=== PATIENT | male | born 1980 | race Hispanic/Latino ===

== ENCOUNTER 2025-03-03 15:08 | Inpatient (IN) | payer OTHER ==
[~2025-03-03] VITALS: Ht 160 cm; Wt 64.2 kg
[2025-03-03 16:40] VITALS: BP 169/94; PULSE 78; RESP 19; TEMP 97.7
[2025-03-03 17:23] VITALS: O2SAT 95
[2025-03-03] MEDS ORDERED: amLODIPine 5 MG TAB PO SCH ×2 (18:00)
[2025-03-03] MEDS ORDERED: NITROGLYCERIN 0.4 MG SL TAB SL PRN (18:00)
[2025-03-03] MEDS ORDERED: DEXTROSE 50%-WATER 50 ML DISP.SYRIN IV PRN (18:00)
[2025-03-03] MEDS ORDERED: GLUCAGON 1MG KIT 1 MG ML IM PRN (18:00)
[2025-03-03 18:02] LABS: IMMATURE GRANULOCYTE ABSOLUTE 0.02 K/uL (0-1); NUCLEATED RED BLOOD CELLS 0.0 % (0.0-0.19); PLATELET COUNT (AUTO) 295 K/uL (130-400); RED BLOOD CELL COUNT(AUTO) 4.67 MIL/uL (4.50-6.20); RED CELL DISTRIBUTION WIDTH 13.5 % (11.0-15.5); WHITE BLOOD COUNT (AUTO) 8.5 K/uL (4.8-10.8)
[2025-03-03 18:14] LABS: CREATININE 0.8 mg/dL (0.5-1.3); GLOMERULAR FILTR. RATE CALC 113.0 mL/min (>90); GLUCOSE,RANDOM 284.0 mg/dL (70-105); SODIUM SERUM 137.0 mmol/L (136-145); UREA NITROGEN, BLOOD 9.0 mg/dL (7-18)
[2025-03-03 18:21] LABS: INR 0.97 (0.85-1.15)
[2025-03-03 18:23] LABS: CREATINE KINASE, TOTAL 35.0 U/L (21-232)
[2025-03-03 18:26] LABS: ASPARTATE AMINOTRANSFERASE 12.0 U/L (10-37); LDL DIRECT 82.0 mg/dL (0-99); TOTAL PROTEIN, SERUM 6.3 g/dL (6.0-8.3)
[2025-03-03 18:58] LABS: HIV 1&2 ANTIBODY Non-Reactive (Negative)
[2025-03-03 19:10] VITALS: BP 157/99; PULSE 79; RESP 16; TEMP 98.3
[2025-03-03] MEDS: amLODIPine 5 MG TAB PO SCH (19:29)
--- NOTE | 2025-03-03 19:38 | HP ---
[facility] HISTORY AND PHYSICAL Date of Service: Mar 03, 2025 Time of Service: 19:24 HISTORY OF PRESENT ILLNESS: Date of service: 03/03/2025, patient was seen in [facility] room 227 44-year-old male with underlying history of type 2 diabetes mellitus, history of polysubstance abuse with cocaine and K2 synthetic marijuana, tobacco use disorder, who presented as a transfer from [facility]. Patient states that he works for a [employer] was in [place], [place] about a week ago. He presented to [facility] in [place] with chest pain and reports that he underwent coronary angiogram/cardiac catheterization. Patient is unsure about the treatment that was offered in [place] and came back to the [place] where he resides. He presented yesterday to the ER in [place] as his job site had requested medical clearance before patient could return to work. Patient denies having significant chest pain yesterday. On presentation to [facility], patient was noted to have troponin which was mildly elevated at 0.055 with BNP of 212, hemoglobin of 12.5, and creatinine of 0.8. Patient received aspirin, Plavix and was initiated on heparin drip and seen by Cardiology. Patient underwent cardiac catheterization today which showed findings of severe multivessel coronary artery disease. Patient was found to have distal left main disease of 80%, proximal LAD of 90% stenosis, proximal circumflex 90% stenosis and patient was found to have 100% CT of mid RCA. Patient was transferred to [facility] for further evaluation for coronary artery bypass grafting. Patient reports having used cocaine about a week ago and he uses K2 synthetic marijuana almost every day. Previously has not been told he has diabetes and currently does not take antidiabetic medications at home. Patient will be admitted under hospitalist and we will follow further recommendations from cardiovascular surgery and Cardiology. REVIEW OF SYSTEMS CONSTITUTIONAL: Denies fevers, chills, or night sweats. reports having had weight loss of about 100 lbs in the last one year NEUROLOGICAL: Denies headache, amaurosis fugax, motor weakness, sensory deficit, vertigo/spinning sensation, gait abnormalities, or tremors. ENT: No hearing loss, otalgia, otorrhea, rhinitis, rhinorrhea, hoarseness, or sore throat. CARDIOVASCULAR: chest pain about a week ago PULMONARY: Denies any shortness of breath, cough, phlegm/sputum, hemoptysis, pleuritic chest pain. SLEEP: Denies morning headaches, daytime somnolence or napping. Denies difficulty falling asleep, staying asleep, waking from sleep. Denies knowledge of snoring. GASTROINTESTINAL: Denies any type of dysphagia to either liquids or solids. Denies nausea, vomiting, pyrosis, early satiety, abdominal pain, diarrhea, constipation, or changes in stool consistency or caliber. Denies coffee-ground emesis, hematemesis, hematochezia, or melanotic stools. GENITOURINARY: Denies frequency, urgency, nocturia, hematuria or incontinence (Storage/Irritative symptoms.) Low urinary stream, straining to void, urinary intermittency or hesitancy, splitting of the voiding stream, terminal dribbling. ENDOCRINOLOGIC: Denies polyuria, polydipsia, polyphagia or heat/cold intolerances. HEMATOLOGIC: Denies thrombophilia/previous clots, or coagulopathy/bleeding disorders. ONCOLOGIC: Denies personal history of malignancy. DERMATOLOGIC: Denies rashes or pruritus. PSYCHIATRIC: Denies any suicidal or homicidal ideation. Denies hallucinations. PAST MEDICAL HISTORY: Hypertension, hyperlipidemia, type 2 diabetes mellitus, history of cocaine use in synthetic marijuana use PAST SURGICAL HISTORY: Reports having had cardiac catheterization in [place] about a week ago PAST SOCIAL HISTORY: Denies alcohol consumption, uses cocaine about once a month, uses synthetic marijuana almost every day for the past year, smokes about a pack a day for about 20 years now FAMILY HISTORY: Reports family history of diabetes and kidney disease Allergies: No known drug allergies Coded Allergies: No Known Drug Allergies (Unverified Allergy, Unknown, 03/03/25) PHYSICAL EXAM GENERAL APPEARANCE: The patient is awake, alert, and oriented, in no acute cardiopulmonary distress. NEUROLOGICAL: Cranial nerves II-XII grossly intact. Neurological examination is nonfocal and patient is moving upper and lower extremities with no focal deficits HEENT: Face is symmetric. Pupils are equal and reactive. Extraocular movements are intact. NECK: Supple. No JVD. No thyromegaly. No submental, submandibular, pre-/postauricular, occipital or supraclavicular lymphadenopathy. CHEST: Normal chest expansion. No Telemetry. LUNGS: Absence of any rales, rhonchi or any wheezing. CARDIOVASCULAR: Regular. S1 and S2 normal. No appreciable rubs, murmurs or gallops. ABDOMEN: Soft, nontender, and nondistended. There is no rebound, voluntary guarding, or rigidity. : Deferred. No Conn. EXTREMITIES: Non-edematous and not cyanotic. No clubbing. Good capillary refill. SKIN: No skin breakdown. Vital Sign (Last 24 Hours) 03/03/25 19:10 Temp 98.2 Pulse 79 Resp 16 B/P (MAP) 157/99 Pulse Ox 100 O2 Delivery Room Air LABS: Laboratory: Test 03/03/25 18:09 03/03/25 17:50 Range/Units Whole Blood Glucose 257 H 70-110 MG/DL White Blood Count 8.5 4.8-10.8 K/uL Red Blood Count 4.67 4.50-6.20 MIL/uL Hemoglobin 14.2 14.0-18.0 g/dL Hematocrit 42.5 42-54 % Mean Corpuscular Volume 91.0 79-99 fL Mean Corpuscular Hemoglobin 30.4 27.0-33.0 pg Mean Corpuscular Hemoglobin Concent 33.4 32.0-36.0 g/dL Red Cell Distribution Width 13.5 11.0-15.5 % Platelet Count 295 130-400 K/uL Mean Platelet Volume 9.1 7.5-10.5 fL Immature Granulocyte % (Auto) 0.2 0-1 % Neutrophils (%) (Auto) 67.2 40.0-77.0 % Lymphocytes (%) (Auto) 24.5 21.0-51.0 % Monocytes (%) (Auto) 6.2 3.0-13.0 % Eosinophils (%) (Auto) 1.4 0.0-8.0 % Basophils (%) (Auto) 0.5 0.0-5.0 % Neutrophils # (Auto) 5.7 1.8-7.7 K/uL Lymphocytes # (Auto) 2.1 1.0-4.8 K/uL Monocytes # (Auto) 0.5 0.1-1.0 K/uL Eosinophils # (Auto) 0.12 0.00-0.70 K/uL Basophils # (Auto) 0.04 0.00-0.20 K/uL Absolute Immature Granulocyte (auto 0.02 0-1 K/uL Nucleated Red Blood Cells 0.0 0.0-0.19 % Prothrombin Time 10.3 9.6-11.6 SEC Prothromb Time International Ratio 0.97 0.85-1.15 Activated Partial Thromboplast Time 27.3 26.3-35.5 SEC Sodium Level 137 136-145 mmol/L Potassium Level 4.4 3.5-5.1 mmol/L Chloride Level 102 101-111 mmol/L Carbon Dioxide Level 32 21-32 mmol/L Blood Urea Nitrogen 9 7-18 mg/dL Creatinine 0.8 0.5-1.3 mg/dL Glomerular Filtration Rate Calc 113 >90 mL/min Random Glucose 284 H 70-105 mg/dL Hemoglobin A1c 10.3 H 4.0-6.0 % Estimated Average Glucose (eAG) 249 H 70-126 mg/dL Total Calcium 8.5 8.5-10.1 mg/dL Magnesium Level 2.10 1.80-2.40 mg/dL Total Bilirubin 0.2 0.2-1.0 mg/dL Aspartate Amino Transf (AST/SGOT) 12 10-37 U/L Alanine Aminotransferase (ALT/SGPT) 15 12-78 U/L Alkaline Phosphatase 112 50-136 U/L Total Creatine Kinase 35 21-232 U/L Troponin I High Sensitivity 64.7 4-75 ng/L Total Protein 6.3 6.0-8.3 g/dL Albumin 2.9 L 3.5-5.0 g/dL Triglycerides Level 88 30-200 mg/dL Cholesterol Level 139 <200 mg/dL LDL Cholesterol 82 0-99 mg/dL HDL Cholesterol 47 29-71 mg/dL Thyroid Stimulating Hormone (TSH) 1.93 0.36-3.74 uIU/mL HIV (1&2) Antibody Non-Reactive Negative HIV P24 Antigen, Qualitative Non-Reactive Negative Current Medications Medications (Trade) Dose Ordered Sig/Marva Route PRN Reason Start Time Stop Time Status Last Admin Dose Admin Acetaminophen (TYLenol 325MG TAB) 650 mg Q6H PRN PO MILD PAIN (1-3) 03/03/25 18:00 04/02/25 17:59 Amlodipine Besylate (NorvASC 5MG TAB) 5 mg Q24H PO 03/03/25 18:00 03/03/25 19:00 DC Amlodipine Besylate (NorvASC 5MG TAB) 5 mg Q24H PO 03/03/25 18:00 04/02/25 17:59 UNV Amlodipine Besylate (NorvASC 5MG TAB) 5 mg Q24H PO 03/03/25 19:30 04/02/25 19:29 Aspirin (Aspirin 81mg Chew Tab) 81 mg DAILY PO 03/04/25 09:00 04/03/25 08:59 Atorvastatin Calcium (LIPItor 40MG) 40 mg HS PO 03/03/25 21:00 04/02/25 20:59 Dextrose (D50w) 50 ml AD PRN IV HYPOGLYCEMIA PROTOCOL 03/03/25 18:00 04/02/25 17:59 Famotidine (Pepcid 20mg Tab) 20 mg BID PO 03/03/25 21:00 04/02/25 20:59 Glucagon (Glucagon 1mg Kit) 1 mg AD PRN IM HYPOGLYCEMIA PROTOCOL 03/03/25 18:00 04/02/25 17:59 Heparin Sodium (Porcine) (HEParin 5,000 UNIT VIAL) 5,000 unit AD IV 03/03/25 19:30 04/02/25 19:29 Heparin Sodium/ Dextrose 250 ml @ 0 mls/hr Q6H IV 03/03/25 18:30 04/02/25 18:29 Insulin Glargine (LANtus 100 UNITS/ML 10 ML VIAL) 12 units HS SQ 03/03/25 21:00 04/02/25 20:59 Insulin Human Regular (humuLIN R 100 UNIT/ML 3ML) INSULIN SLIDING SCAL... ACHS SQ 03/03/25 21:00 04/02/25 20:59 Morphine Sulfate (morPHINE 2MG SYG) 2 mg Q6H PRN IVP SEVERE PAIN (7-10) 03/03/25 18:00 03/10/25 17:59 Nitroglycerin (Nitrostat) 0.4 mg AD PRN SL CHEST PAIN 03/03/25 18:00 04/02/25 17:59 Ondansetron HCl (zoFRAN 4MG INJ) 4 mg Q6H PRN IVP NAUSEA/VOMITING 03/03/25 18:00 04/02/25 17:59 DIAGNOSTICS / RADIOLOGY: none ASSESSMENT: NSTEMI, POA Status post coronary angiogram/LHC with findings of severe multivessel coronary artery disease, POA History of tobacco use disorder, POA History of polysubstance abuse with cocaine and synthetic marijuana, POA Uncontrolled type 2 diabetes mellitus, POA Hypertension, POA Hyperlipidemia, POA PLAN: Patient will continue with close admission in cardiac telemetry floor Patient on coronary angiogram was found to have distal left main disease of 80% stenosis, proximal LAD showed 90% stenosis, proximal circumflex showed 90% stenosis and mid RCA showed 100% [employer] 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 Potassium and magnesium will be repleted per protocol All labs will be repeated in the morning, we will obtain a screening HIV test, hepatitis panel due to history of polysubstance abuse Discussed with patient to quit/abstain from smoking, cocaine and synthetic marijuana use, patient verbalized understanding and showed willingness to quit Date of service: 03/03/2025 Plan of care was discussed with patient at bedside, Alan Flood MD Advanced Care Planning: Which of the following were discussed: Hospice care: Yes __ No _X_ Therapeutic options: Yes _X_ No __ Advance directives: Yes _X_ No __ Other discussions: Discussed with who?: Patient Voluntary nature of this service was explained to the patient? Yes _x_ No __ Amount of time spent: 20 minutes ALAN FLOOD MD Mar 03, 2025 19:38
[2025-03-03 20:00] VITALS: O2SAT 96
[2025-03-03] MEDS: FAMOTIDINE 20MG TAB PO SCH (20:23)
--- NOTE | 2025-03-03 21:33 | CONS ---
We are consulted to assist with perioperative management in a patient who has suffered a myocardial infarction has 40% ejection fraction, here for coronary bypass. Patient says he had only one intense episode of chest pain and presented for evaluation and was evaluated and referred here. BNP was 212 at the other hospital and coronary arteriography demonstrates multivessel disease. Patient has a previous history of stent placement at [facility] in [place]. He apparently did not receive the medicine he was supposed to take after discharge after a stent was implanted for that acute event. Medical history is otherwise notable for diabetes, dyslipidemia, and smoking. Physical exam is notable for a pleasant, alert and cheerful male appropriate for age with no JVD, normal carotid volume, clear lungs, nonlabored respiration, normal S1 and S2, no S3 or murmur, scaphoid abdomen, normal bowel sounds, no abdominal tenderness, intact peripheral pulses and intact integument but with extensive tattoos. Impression and plan: Patient has mildly compromised ventricular function but is a good candidate for multivessel bypass and we will assist in any way possible. Patient History: Carcinomas MOTHER, , Age: 60 years and older, Cause: Pancreatic cancer Diabetes mellitus MOTHER, , Age: 60 years and older, Cause: Pancreatic cancer FH: chronic renal failure FATHER Vitals/Labs Vital Signs Date Time Temp Pulse Resp B/P (MAP) Pulse Ox O2 Delivery O2 Flow Rate FiO2 03/03/25 19:10 98.2 79 16 157/99 100 Room Air 03/03/25 17:23 0 21 Laboratory Tests 03/03/25 17:50 Allergies: Coded Allergies: No Known Drug Allergies (Unverified Allergy, Unknown, 03/03/25) Medications Current Medications Insulin Human Regular INSULIN SLIDING SCAL... ACHS SQ Last administered on 03/03/25at 20:26; Start 03/03/25 at 21:00; Stop 04/02/25 at 20:59 Dextrose 50 ml AD PRN IV; Start 03/03/25 at 18:00; Stop 04/02/25 at 17:59 Glucagon 1 mg AD PRN IM; Start 03/03/25 at 18:00; Stop 04/02/25 at 17:59 Famotidine 20 mg BID PO Last administered on 03/03/25at 20:23; Start 03/03/25 at 21:00; Stop 04/02/25 at 20:59 Amlodipine Besylate 5 mg Q24H PO; Start 03/03/25 at 18:00; Stop 04/02/25 at 17:59; Status UNV Acetaminophen 650 mg Q6H PRN PO; Start 03/03/25 at 18:00; Stop 04/02/25 at 17:59 Nitroglycerin 0.4 mg AD PRN SL; Start 03/03/25 at 18:00; Stop 04/02/25 at 17:59 Ondansetron HCl 4 mg Q6H PRN IVP; Start 03/03/25 at 18:00; Stop 04/02/25 at 17:59 Atorvastatin Calcium 40 mg HS PO Last administered on 03/03/25at 20:23; Start 03/03/25 at 21:00; Stop 04/02/25 at 20:59 Amlodipine Besylate 5 mg Q24H PO; Start 03/03/25 at 18:00; Stop 03/03/25 at 19:00; Status DC Heparin Sodium/ Dextrose 250 ml @ 0 mls/hr Q6H IV Last administered on 03/03/25at 19:32; Start 03/03/25 at 18:30; Stop 04/02/25 at 18:29 Morphine Sulfate 2 mg Q6H PRN IVP; Start 03/03/25 at 18:00; Stop 03/10/25 at 17:59 Insulin Glargine 12 units HS SQ Last administered on 03/03/25at 20:27; Start 03/03/25 at 21:00; Stop 04/02/25 at 20:59 Aspirin 81 mg DAILY PO; Start 03/04/25 at 09:00; Stop 04/03/25 at 08:59 Amlodipine Besylate 5 mg Q24H PO Last administered on 03/03/25at 19:29; Start 03/03/25 at 19:30; Stop 04/02/25 at 19:29 Heparin Sodium (Porcine) 5,000 unit AD IV; Start 03/03/25 at 19:30; Stop 04/02/25 at 19:29 MIGNON GALINDO MD Mar 03, 2025 21:33
[2025-03-03 22:58] VITALS: BP 131/80; PULSE 72; RESP 16; TEMP 98.1
[2025-03-04] VITALS (7 sets, daily range): BP systolic 123–151; BP diastolic 63–84; PULSE 54–78; RESP 18–20; TEMP 97.8–98.6; O2SAT 98
[2025-03-04 03:43] LABS: IMMATURE GRANULOCYTE ABSOLUTE 0.05 K/uL (0-1); NUCLEATED RED BLOOD CELLS 0.0 % (0.0-0.19); PLATELET COUNT (AUTO) 305 K/uL (130-400); RED BLOOD CELL COUNT(AUTO) 4.63 MIL/uL (4.50-6.20); RED CELL DISTRIBUTION WIDTH 13.5 % (11.0-15.5); WHITE BLOOD COUNT (AUTO) 10.4 K/uL (4.8-10.8)
[2025-03-04 04:16] LABS: ASPARTATE AMINOTRANSFERASE 13.0 U/L (10-37); CREATININE 0.7 mg/dL (0.5-1.3); GLOMERULAR FILTR. RATE CALC 118.0 mL/min (>90); GLUCOSE,RANDOM 100.0 mg/dL (70-105); SODIUM SERUM 141.0 mmol/L (136-145); TOTAL PROTEIN, SERUM 6.0 g/dL (6.0-8.3); UREA NITROGEN, BLOOD 9.0 mg/dL (7-18)
--- NOTE | 2025-03-04 06:27 | HMCIMG ---
EXAM: Chest radiograph 1 view HISTORY: Infiltrate COMPARISON: None FINDINGS: No pulmonary consolidations. No pleural effusion or pneumothorax. Normal cardiomediastinal silhouette and pulmonary vasculature. Degenerative changes. IMPRESSION: No acute cardiopulmonary disease. /[place]
[2025-03-04] MEDS: ASPIRIN 81MG CHEW TAB PO SCH (09:03)
--- NOTE | 2025-03-04 13:31 | PN ---
[facility] PROGRESS NOTE Date of Service: Mar 04, 2025 Time of Service: 13:24 SUBJECTIVE: [The patient was evaluated in room 227 and is currently undergoing a 2D echocardiogram. He denies any chest pain at this time. He was admitted yesterday from [facility] due to elevated troponin and mildly elevated BNP. Cardiology evaluation was completed by Dr. Horn, who noted mildly compromised ventricular function and recommended the patient as a good candidate for multivessel bypass. The patient will continue to be monitored and followed up accordingly. ] REVIEW OF SYSTEMS CONSTITUTIONAL: Denies fevers, chills, or night sweats. reports having had weight loss of about 100 lbs in the last one year NEUROLOGICAL: Denies headache, amaurosis fugax, motor weakness, sensory deficit, vertigo/spinning sensation, gait abnormalities, or tremors. ENT: No hearing loss, otalgia, otorrhea, rhinitis, rhinorrhea, hoarseness, or sore throat. CARDIOVASCULAR: chest pain about a week ago PULMONARY: Denies any shortness of breath, cough, phlegm/sputum, hemoptysis, pleuritic chest pain. SLEEP: Denies morning headaches, daytime somnolence or napping. Denies difficulty falling asleep, staying asleep, waking from sleep. Denies knowledge of snoring. GASTROINTESTINAL: Denies any type of dysphagia to either liquids or solids. Denies nausea, vomiting, pyrosis, early satiety, abdominal pain, diarrhea, constipation, or changes in stool consistency or caliber. Denies coffee-ground emesis, hematemesis, hematochezia, or melanotic stools. GENITOURINARY: Denies frequency, urgency, nocturia, hematuria or incontinence (Storage/Irritative symptoms.) Low urinary stream, straining to void, urinary intermittency or hesitancy, splitting of the voiding stream, terminal dribbling. ENDOCRINOLOGIC: Denies polyuria, polydipsia, polyphagia or heat/cold intolerances. HEMATOLOGIC: Denies thrombophilia/previous clots, or coagulopathy/bleeding disorders. ONCOLOGIC: Denies personal history of malignancy. DERMATOLOGIC: Denies rashes or pruritus. PSYCHIATRIC: Denies any suicidal or homicidal ideation. Denies hallucinations. PHYSICAL EXAM GENERAL APPEARANCE: The patient is awake, alert, and oriented, in no acute cardiopulmonary distress. NEUROLOGICAL: Cranial nerves II-XII grossly intact. Neurological examination is nonfocal and patient is moving upper and lower extremities with no focal deficits HEENT: Face is symmetric. Pupils are equal and reactive. Extraocular movements are intact. NECK: Supple. No JVD. No thyromegaly. No submental, submandibular, pre- /postauricular, occipital or supraclavicular lymphadenopathy. CHEST: Normal chest expansion. No Telemetry. LUNGS: Absence of any rales, rhonchi or any wheezing. CARDIOVASCULAR: Regular. S1 and S2 normal. No appreciable rubs, murmurs or gallops. ABDOMEN: Soft, nontender, and nondistended. There is no rebound, voluntary guarding, or rigidity. : Deferred. No Conn. EXTREMITIES: Non-edematous and not cyanotic. No clubbing. Good capillary refill. SKIN: No skin breakdown. Vital Signs (last 8hr) Date Time Temp Pulse Resp B/P (MAP) Pulse Ox O2 Delivery O2 Flow Rate FiO2 03/04/25 08:00 98.2 54 20 130/63 99 Room Air 03/04/25 08:00 98 Room Air* 0 21 LABS: Laboratory: Test 03/04/25 12:12 03/04/25 06:59 03/04/25 03:15 03/03/25 19:40 Range/Units Whole Blood Glucose 171 #H 70-110 MG/DL Activated Partial Thromboplast Time 54.6 #H 26.3-35.5 SEC White Blood Count 10.4 4.8-10.8 K/uL Red Blood Count 4.63 4.50-6.20 MIL/uL Hemoglobin 14.0 14.0-18.0 g/dL Hematocrit 41.4 L 42-54 % Mean Corpuscular Volume 89.4 79-99 fL Mean Corpuscular Hemoglobin 30.2 27.0-33.0 pg Mean Corpuscular Hemoglobin Concent 33.8 32.0-36.0 g/dL Red Cell Distribution Width 13.5 11.0-15.5 % Platelet Count 305 130-400 K/uL Mean Platelet Volume 9.2 7.5-10.5 fL Immature Granulocyte % (Auto) 0.5 0-1 % Neutrophils (%) (Auto) 64.6 40.0-77.0 % Lymphocytes (%) (Auto) 26.1 21.0-51.0 % Monocytes (%) (Auto) 6.6 3.0-13.0 % Eosinophils (%) (Auto) 1.7 0.0-8.0 % Basophils (%) (Auto) 0.5 0.0-5.0 % Neutrophils # (Auto) 6.7 1.8-7.7 K/uL Lymphocytes # (Auto) 2.7 1.0-4.8 K/uL Monocytes # (Auto) 0.7 0.1-1.0 K/uL Eosinophils # (Auto) 0.18 0.00-0.70 K/uL Basophils # (Auto) 0.05 0.00-0.20 K/uL Absolute Immature Granulocyte (auto 0.05 0-1 K/uL Nucleated Red Blood Cells 0.0 0.0-0.19 % Sodium Level 141 136-145 mmol/L Potassium Level 3.3 L 3.5-5.1 mmol/L Chloride Level 105 101-111 mmol/L Carbon Dioxide Level 32 21-32 mmol/L Blood Urea Nitrogen 9 7-18 mg/dL Creatinine 0.7 0.5-1.3 mg/dL Glomerular Filtration Rate Calc 118 >90 mL/min Random Glucose 100 # 70-105 mg/dL Total Calcium 8.5 8.5-10.1 mg/dL Magnesium Level 2.00 1.80-2.40 mg/dL Total Bilirubin 0.3 # 0.2-1.0 mg/dL Aspartate Amino Transf (AST/SGOT) 13 10-37 U/L Alanine Aminotransferase (ALT/SGPT) 14 12-78 U/L Alkaline Phosphatase 99 50-136 U/L Total Protein 6.0 6.0-8.3 g/dL Albumin 2.7 L 3.5-5.0 g/dL Bedside Glucose Comment Notified Nurse Test 03/03/25 17:50 Range/Units Prothrombin Time 10.3 9.6-11.6 SEC Prothromb Time International Ratio 0.97 0.85-1.15 Hemoglobin A1c 10.3 H 4.0-6.0 % Estimated Average Glucose (eAG) 249 H 70-126 mg/dL Total Creatine Kinase 35 21-232 U/L Troponin I High Sensitivity 64.7 4-75 ng/L Triglycerides Level 88 30-200 mg/dL Cholesterol Level 139 <200 mg/dL LDL Cholesterol 82 0-99 mg/dL HDL Cholesterol 47 29-71 mg/dL Thyroid Stimulating Hormone (TSH) 1.93 0.36-3.74 uIU/mL HIV (1&2) Antibody Non-Reactive Negative HIV P24 Antigen, Qualitative Non-Reactive Negative Current Medications Medications (Trade) Dose Ordered Sig/Marva Route PRN Reason Start Time Stop Time Status Last Admin Dose Admin Acetaminophen (TYLenol 325MG TAB) 650 mg Q6H PRN PO MILD PAIN (1-3) 03/03/25 18:00 04/02/25 17:59 Amlodipine Besylate (NorvASC 5MG TAB) 5 mg Q24H PO 03/03/25 18:00 03/03/25 19:00 DC Amlodipine Besylate (NorvASC 5MG TAB) 5 mg Q24H PO 03/03/25 18:00 04/02/25 17:59 UNV Amlodipine Besylate (NorvASC 5MG TAB) 5 mg Q24H PO 03/03/25 19:30 04/02/25 19:29 03/03/25 19:29 5 MG Aspirin (Aspirin 81mg Chew Tab) 81 mg DAILY PO 03/04/25 09:00 04/03/25 08:59 03/04/25 09:03 81 MG Atorvastatin Calcium (LIPItor 40MG) 40 mg HS PO 03/03/25 21:00 04/02/25 20:59 03/03/25 20:23 40 MG Dextrose (D50w) 50 ml AD PRN IV HYPOGLYCEMIA PROTOCOL 03/03/25 18:00 04/02/25 17:59 Famotidine (Pepcid 20mg Tab) 20 mg BID PO 03/03/25 21:00 04/02/25 20:59 03/04/25 09:03 20 MG Glucagon (Glucagon 1mg Kit) 1 mg AD PRN IM HYPOGLYCEMIA PROTOCOL 03/03/25 18:00 04/02/25 17:59 Heparin Sodium (Porcine) (HEParin 5,000 UNIT VIAL) 5,000 unit AD IV 03/03/25 19:30 04/02/25 19:29 Heparin Sodium/ Dextrose 250 ml @ 0 mls/hr Q6H IV 03/03/25 18:30 04/02/25 18:29 03/03/25 19:32 9.87 MLS/HR Insulin Glargine (LANtus 100 UNITS/ML 10 ML VIAL) 12 units HS SQ 03/03/25 21:00 04/02/25 20:59 03/03/25 20:27 12 UNITS Insulin Human Regular (humuLIN R 100 UNIT/ML 3ML) INSULIN SLIDING SCAL... ACHS SQ 03/03/25 21:00 04/02/25 20:59 03/03/25 20:26 8 UNIT Morphine Sulfate (morPHINE 2MG SYG) 2 mg Q6H PRN IVP SEVERE PAIN (7-10) 03/03/25 18:00 03/10/25 17:59 Nitroglycerin (Nitrostat) 0.4 mg AD PRN SL CHEST PAIN 03/03/25 18:00 04/02/25 17:59 Ondansetron HCl (zoFRAN 4MG INJ) 4 mg Q6H PRN IVP NAUSEA/VOMITING 03/03/25 18:00 04/02/25 17:59 DIAGNOSTICS / RADIOLOGY: [ ] ASSESSMENT: NSTEMI, POA Status post coronary angiogram/C with findings of severe multivessel coronary artery disease, POA History of tobacco use disorder, POA History of polysubstance abuse with cocaine and synthetic marijuana, POA Uncontrolled type 2 diabetes mellitus, POA Hypertension, POA Hyperlipidemia, POA PLAN: Continue cardiac monitoring and supportive care. Complete 2D echocardiogram and review results. Maintain serial troponin and BNP monitoring as indicated. Consult and coordinate with cardiothoracic surgery for evaluation and planning of multivessel bypass. Continue current medications and adjust as needed per cardiology recommendations. Monitor for any new symptoms, including chest pain or hemodynamic instability. Provide patient and family education regarding diagnosis and treatment options. Follow up with cardiology and surgical teams for ongoing management. Potassium and magnesium will be repleted per protocol All labs will be repeated in the morning, we will obtain a screening HIV test, hepatitis panel due to history of polysubstance abuse Discussed with patient to quit/abstain from smoking, cocaine and synthetic marijuana use, patient verbalized understanding and showed willingness to quit Case discussed with Dr. Goff, above plan was formulated ATTESTATION BY PHYSICIAN I have seen and examined the patient. I reviewed the documentation, medical decision making, and treatment plan as noted by the mid-level provider above. I agree with the findings and plan of care. Lima Goff MD, JANICE B AGPCNP Mar 04, 2025 13:31
[2025-03-04 14:41] LABS: INR 1.0 (0.85-1.15)
--- NOTE | 2025-03-04 17:23 | NUR ---
DCP: INITIAL ASSESSMENT Patient lives with father, Dieudonne Santoyo. He has no home services. Patient has BPM and glucometer (uses insulin) at home. Patient is able to complete ADLs independently but does not drive. He has no Primary MD. Pharmacy is [facility] in [place]. Patient voiced no safety concerns regarding returning home and states he has no difficulty with housing or buying food. DCP is home. Addendum: 03/04/25 at 1728 by AGATA QUEZADA SS Amended: Links added.
[2025-03-05] VITALS (8 sets, daily range): BP systolic 135–148; BP diastolic 71–84; PULSE 59–78; RESP 18–20; TEMP 97.5–98.4; O2SAT 98
[2025-03-05 04:24] LABS: NUCLEATED RED BLOOD CELLS 0.0 % (0.0-0.19); PLATELET COUNT (AUTO) 285.0 K/uL (130-400); RED BLOOD CELL COUNT(AUTO) 4.76 MIL/uL (4.50-6.20); RED CELL DISTRIBUTION WIDTH 13.4 % (11.0-15.5); WHITE BLOOD COUNT (AUTO) 7.8 K/uL (4.8-10.8)
[2025-03-05 04:37] LABS: CREATININE 0.7 mg/dL (0.5-1.3); GLOMERULAR FILTR. RATE CALC 118.0 mL/min (>90); GLUCOSE,RANDOM 118.0 mg/dL (70-105); SODIUM SERUM 140.0 mmol/L (136-145); UREA NITROGEN, BLOOD 10.0 mg/dL (7-18)
--- NOTE | 2025-03-05 09:19 | HMCSR ---
APPROVED REPORT EXAM: Two-dimensional and M-mode echocardiogram with Doppler and color Doppler. INDICATION ICD: NSTEMI 2D Dimensions RVDd3.5 cmLVEF(%)14.9 (>50%)LVED Vol(simp.)152.4 mL IVSd1.0 (0.7-1.1cm)FS(%)7 %LVES Vol(simp.)98.2 mL LVDd5.3 (3.8-5.6cm)LA (2D)3.1 (1.6-4.0cm)LVEF(%, simp.)36 % PWd0.9 (0.7-1.1cm)Ao Root(2D)3.2 (2.0-3.7cm)LA ESV INDEX (BP)33.52 mL/m2 IVSs1.3 cmLVOT diam2.1 (1.8-2.4cm) LVDs4.9 (2.5-4.0cm) PWs0.9 cm Deformation Strain Apical 4-14.7 % Apical 2-12.7 % Apical 3-11.1 % Global Strain-12.8 % M-Mode Dimensions EPSS1.2 cm LA (MM)3.4 (1.6-4.0cm) Ao Root(MM)3.1 (2.0-3.7cm) Aortic Valve AoV Vmax1.5 m/Fahad Peak GR8.8 mmHgLVOT Vmax0.8 m/s AoV VTI0.3 mAo Mean GR4.4 mmHgLVOT VTI0.17 m MEL (VMAX)1.83 cm2AVA (VTI) 2.0 cm2 Mitral Valve MV E Vmax87.3 cm/sDECEL Yuyx006 ms MV A Vmax61.7 cm/s E/A ratio1.4 TDI E/E' Dtoonv19.7E/E' Lateral8.8 Medial E' Peak V4.92 cm/sLateral E' Peak V9.88 cm/s Pulmonary Valve PV Vmax1.0 m/sPV VTI0.21 mPV Mean GR2.2 mmHg PV Peak GR3.8 mmHg Tricuspid Valve RAP (EST) 8 mmHgRVSP8.0 mmHg Left Ventricle The left ventricle is normal size. Mild spontaneous contrast noted Basal, mid and apical inferior hyp okinesia. There is mild to moderate assymetrical left ventricular wall thickness. LVEF is 55%. The le ft ventricular diastolic function is normal. Right Ventricle The right ventricle is normal size. The right ventricular systolic function is normal. Atria The left atrium size is normal. The right atrium size is normal. Aortic Valve The aortic valve is thickened and opens well. No aortic regurgitation is present. There is no aortic valvular stenosis. Mitral Valve The mitral valve is mildly thickened and opens well. There is trace of mitral valve regurgitation not ed. There is no mitral valve stenosis. Tricuspid Valve The tricuspid valve is normal in structure. There is trace of tricuspid valve regurgitation noted. Pulmonic Valve The pulmonary valve is normal in structure. There is no pulmonic valvular regurgitation. Great Vessels The aortic root is normal in size. The IVC is normal in size and collapses <50% with inspiration. Pericardium There is no pericardial effusion. Other Information Quality : Adequate Conclusion LVEF is 55%. Basal, mid and apical inferior hypokinesia. There is trace of mitral valve regurgitation noted.
--- NOTE | 2025-03-05 11:29 | PN ---
[facility] PROGRESS NOTE Date of Service: Mar 05, 2025 Time of Service: 11:25 SUBJECTIVE: [Patient was followed up today in room 227. Denies any chest pain at this time. Evaluation for multivessel bypass is planned; cardiothoracic surgeon consult is still pending. 2D echocardiogram performed yesterday showed LVEF of 55% with basal, mild, and apical inferior hypokinesia. Trace mitral valve regurgitation noted. Otherwise, patient has no complaints. Will await further recommendations from consulting services. REVIEW OF SYSTEMS CONSTITUTIONAL: Denies fevers, chills, or night sweats. reports having had weight loss of about 100 lbs in the last one year NEUROLOGICAL: Denies headache, amaurosis fugax, motor weakness, sensory deficit, vertigo/spinning sensation, gait abnormalities, or tremors. ENT: No hearing loss, otalgia, otorrhea, rhinitis, rhinorrhea, hoarseness, or sore throat. CARDIOVASCULAR: chest pain about a week ago PULMONARY: Denies any shortness of breath, cough, phlegm/sputum, hemoptysis, p leuritic chest pain. SLEEP: Denies morning headaches, daytime somnolence or napping. Denies difficulty falling asleep, staying asleep, waking from sleep. Denies knowledge of snoring. GASTROINTESTINAL: Denies any type of dysphagia to either liquids or solids. Denies nausea, vomiting, pyrosis, early satiety, abdominal pain, diarrhea, constipation, or changes in stool consistency or caliber. Denies coffee-ground emesis, hematemesis, hematochezia, or melanotic stools. GENITOURINARY: Denies frequency, urgency, nocturia, hematuria or incontinence (Storage/Irritative symptoms.) Low urinary stream, straining to void, urinary intermittency or hesitancy, splitting of the voiding stream, terminal dribbling. ENDOCRINOLOGIC: Denies polyuria, polydipsia, polyphagia or heat/cold intoler ances. HEMATOLOGIC: Denies thrombophilia/previous clots, or coagulopathy/bleeding disorders. ONCOLOGIC: Denies personal history of malignancy. DERMATOLOGIC: Denies rashes or pruritus. PSYCHIATRIC: Denies any suicidal or homicidal ideation. Denies hallucinations. PHYSICAL EXAM GENERAL APPEARANCE: The patient is awake, alert, and oriented, in no acute cardiopulmonary distress. NEUROLOGICAL: Cranial nerves II-XII grossly intact. Neurological examination is nonfocal and patient is moving upper and lower extremities with no focal deficits HEENT: Face is symmetric. Pupils are equal and reactive. Extraocular movements are intact. NECK: Supple. No JVD. No thyromegaly. No submental, submandibular, pre- /postauricular, occipital or supraclavicular lymphadenopathy. CHEST: Normal chest expansion. No Telemetry. LUNGS: Absence of any rales, rhonchi or any wheezing. CARDIOVASCULAR: Regular. S1 and S2 normal. No appreciable rubs, murmurs or gallops. ABDOMEN: Soft, nontender, and nondistended. There is no rebound, voluntary guarding, or rigidity. : Deferred. No Conn. EXTREMITIES: Non-edematous and not cyanotic. No clubbing. Good capillary re fill. SKIN: No skin breakdown. Vital Signs (last 8hr) Date Time Temp Pulse Resp B/P (MAP) Pulse Ox O2 Delivery O2 Flow Rate FiO2 03/05/25 07:39 97.5 59 18 137/71 100 Room Air 03/05/25 07:00 98 Room Air* 0 21 03/05/25 03:54 97.5 60 20 137/77 100 Room Air LABS: Laboratory: Test 03/05/25 05:16 03/05/25 03:59 03/04/25 14:04 03/04/25 03:15 Range/Units Whole Blood Glucose 117 H 70-110 MG/DL White Blood Count 7.8 4.8-10.8 K/uL Red Blood Count 4.76 4.50-6.20 MIL/uL Hemoglobin 14.3 14.0-18.0 g/dL Hematocrit 42.9 42-54 % Mean Corpuscular Volume 90.1 79-99 fL Mean Corpuscular Hemoglobin 30.0 27.0-33.0 pg Mean Corpuscular Hemoglobin Concent 33.3 32.0-36.0 g/dL Red Cell Distribution Width 13.4 11.0-15.5 % Platelet Count 285 130-400 K/uL Mean Platelet Volume 9.0 7.5-10.5 fL Nucleated Red Blood Cells 0.0 0.0-0.19 % Activated Partial Thromboplast Time 50.0 H 26.3-35.5 SEC Sodium Level 140 136-145 mmol/L Potassium Level 4.1 3.5-5.1 mmol/L Chloride Level 104 101-111 mmol/L Carbon Dioxide Level 33 H 21-32 mmol/L Blood Urea Nitrogen 10 7-18 mg/dL Creatinine 0.7 0.5-1.3 mg/dL Glomerular Filtration Rate Calc 118 >90 mL/min Random Glucose 118 H 70-105 mg/dL Total Calcium 9.0 8.5-10.1 mg/dL Magnesium Level 2.10 1.80-2.40 mg/dL Prothrombin Time 10.6 9.6-11.6 SEC Prothromb Time International Ratio 1.00 0.85-1.15 Immature Granulocyte % (Auto) 0.5 0-1 % Neutrophils (%) (Auto) 64.6 40.0-77.0 % Lymphocytes (%) (Auto) 26.1 21.0-51.0 % Monocytes (%) (Auto) 6.6 3.0-13.0 % Eosinophils (%) (Auto) 1.7 0.0-8.0 % Basophils (%) (Auto) 0.5 0.0-5.0 % Neutrophils # (Auto) 6.7 1.8-7.7 K/uL Lymphocytes # (Auto) 2.7 1.0-4.8 K/uL Monocytes # (Auto) 0.7 0.1-1.0 K/uL Eosinophils # (Auto) 0.18 0.00-0.70 K/uL Basophils # (Auto) 0.05 0.00-0.20 K/uL Absolute Immature Granulocyte (auto 0.05 0-1 K/uL Total Bilirubin 0.3 # 0.2-1.0 mg/dL Aspartate Amino Transf (AST/SGOT) 13 10-37 U/L Alanine Aminotransferase (ALT/SGPT) 14 12-78 U/L Alkaline Phosphatase 99 50-136 U/L Total Protein 6.0 6.0-8.3 g/dL Albumin 2.7 L 3.5-5.0 g/dL Test 03/03/25 19:40 03/03/25 17:50 Range/Units Bedside Glucose Comment Notified Nurse Hemoglobin A1c 10.3 H 4.0-6.0 % Estimated Average Glucose (eAG) 249 H 70-126 mg/dL Total Creatine Kinase 35 21-232 U/L Troponin I High Sensitivity 64.7 4-75 ng/L Triglycerides Level 88 30-200 mg/dL Cholesterol Level 139 <200 mg/dL LDL Cholesterol 82 0-99 mg/dL HDL Cholesterol 47 29-71 mg/dL Thyroid Stimulating Hormone (TSH) 1.93 0.36-3.74 uIU/mL HIV (1&2) Antibody Non-Reactive Negative HIV P24 Antigen, Qualitative Non-Reactive Negative Current Medications Medications (Trade) Dose Ordered Sig/Marva Route PRN Reason Start Time Stop Time Status Last Admin Dose Admin Acetaminophen (TYLenol 325MG TAB) 650 mg Q6H PRN PO MILD PAIN (1-3) 03/03/25 18:00 04/02/25 17:59 Amlodipine Besylate (NorvASC 5MG TAB) 5 mg Q24H PO 03/03/25 18:00 03/03/25 19:00 DC Amlodipine Besylate (NorvASC 5MG TAB) 5 mg Q24H PO 03/03/25 18:00 04/02/25 17:59 UNV Amlodipine Besylate (NorvASC 5MG TAB) 5 mg Q24H PO 03/03/25 19:30 04/02/25 19:29 03/04/25 20:22 5 MG Aspirin (Aspirin 81mg Chew Tab) 81 mg DAILY PO 03/04/25 09:00 04/03/25 08:59 03/05/25 08:52 81 MG Atorvastatin Calcium (LIPItor 40MG) 40 mg HS PO 03/03/25 21:00 04/02/25 20:59 03/04/25 20:22 40 MG Dextrose (D50w) 50 ml AD PRN IV HYPOGLYCEMIA PROTOCOL 03/03/25 18:00 04/02/25 17:59 Famotidine (Pepcid 20mg Tab) 20 mg BID PO 03/03/25 21:00 04/02/25 20:59 03/05/25 08:52 20 MG Glucagon (Glucagon 1mg Kit) 1 mg AD PRN IM HYPOGLYCEMIA PROTOCOL 03/03/25 18:00 04/02/25 17:59 Heparin Sodium (Porcine) (HEParin 5,000 UNIT VIAL) 5,000 unit AD IV 03/03/25 19:30 04/02/25 19:29 Heparin Sodium/ Dextrose 250 ml @ 0 mls/hr Q6H IV 03/03/25 18:30 04/02/25 18:29 03/03/25 19:32 9.87 MLS/HR Insulin Glargine (LANtus 100 UNITS/ML 10 ML VIAL) 12 units HS SQ 03/03/25 21:00 04/02/25 20:59 03/04/25 21:14 12 UNITS Insulin Human Regular (humuLIN R 100 UNIT/ML 3ML) INSULIN SLIDING SCAL... ACHS SQ 03/03/25 21:00 04/02/25 20:59 03/04/25 18:14 2 UNIT Morphine Sulfate (morPHINE 2MG SYG) 2 mg Q6H PRN IVP SEVERE PAIN (7-10) 03/03/25 18:00 03/10/25 17:59 Nitroglycerin (Nitrostat) 0.4 mg AD PRN SL CHEST PAIN 03/03/25 18:00 04/02/25 17:59 Ondansetron HCl (zoFRAN 4MG INJ) 4 mg Q6H PRN IVP NAUSEA/VOMITING 03/03/25 18:00 04/02/25 17:59 DIAGNOSTICS / RADIOLOGY: [ ] ASSESSMENT: NSTEMI, POA Status post coronary angiogram/LHC with findings of severe multivessel coronary artery disease, POA History of tobacco use disorder, POA History of polysubstance abuse with cocaine and synthetic marijuana, POA Uncontrolled type 2 diabetes mellitus, POA Hypertension, POA Hyperlipidemia, POA PLAN: Continue cardiac monitoring and supportive care. Completed 2D echocardiogram and reviewd results, we will continue to monitor cardiac function Maintain serial troponin and BNP monitoring as indicated. Await for cardiac evaluation/assessment for possible multivessel bypass Continue current medications and adjust as needed per cardiology recommendations. Monitor for any new symptoms, including chest pain or hemodynamic instability. Provide patient and family education regarding diagnosis and treatment options. Follow up with cardiology and surgical teams for ongoing management. Potassium and magnesium will be repleted per protocol All labs will be repeated in the morning, we will obtain a screening HIV test, hepatitis panel due to history of polysubstance abuse Discussed with patient to quit/abstain from smoking, cocaine and synthetic marijuana use, patient verbalized understanding and showed willingness to quit Case discussed with Dr. Goff, above plan was formulated ATTESTATION BY PHYSICIAN I have seen and examined the patient. I reviewed the documentation, medical decision making, and treatment plan as noted by the mid-level provider above. I agree with the findings and plan of care. Lima Goff MD, [facility] Mar 05, 2025 11:29
--- NOTE | 2025-03-05 12:32 | PN ---
[facility] PROGRESS NOTE Date Patient Seen: Mar 05, 2025 Time of Visit: 12:15 Interval History: This is a 44-year-old Latin-Mexican male with a past medical history of hypertension, hyperlipidemia, type 2 diabetes mellitus, tobacco use and history of cocaine use apparently sustained an NH while working in [facility] approximally one-week ago. He reports undergoing a cardiac catheterization in [place] and was found to have significant CAD but did not have any stents placed (prior documentation in the record indicates that he may have had a stent placed). He presented to [facility] on 03/02/2025 complaining of chest pain. His troponins were 0.055. He underwent a cardiac catheterization on 03/03/2025 demonstrating left main and three-vessel coronary artery disease and was transferred to [facility] for coronary artery bypass. Troponin on transfer was 64. He has remained stable overnight and plans are to proceed with surgery later this week. A 2D echocardiogram on 03/04/2025 demonstrated an LVEF of 55% and basal, mid and apical inferior hypokinesis. Physical Examination: GENERAL: No acute distress. HEAD: Normal with no signs of head trauma. EYES: PERRLA, EOMI, conjunctiva and sclera normal. NECK: Supple without JVD. There is no tenderness, lymphadenopathy, or masses. No thyromegaly. Normal carotid upstrokes without bruits. LUNGS: Clear breath sounds bilaterally. No wheezes, or rhonchi. HEART: Normal rate and rhythm. Normal S1 and S2 without murmurs, gallop or rub. VASC: Peripheral pulses +2 bilaterally. EXT: No clubbing, cyanosis or edema. NEURO: Awake, alert, and oriented x3. No focal neurological deficits noted. Laboratory: Hematology Labs: Test 03/05/25 03:59 03/04/25 03:15 Range/Units White Blood Count 7.8 4.8-10.8 K/uL Red Blood Count 4.76 4.50-6.20 MIL/uL Hemoglobin 14.3 14.0-18.0 g/dL Hematocrit 42.9 42-54 % Mean Corpuscular Volume 90.1 79-99 fL Mean Corpuscular Hemoglobin 30.0 27.0-33.0 pg Mean Corpuscular Hemoglobin Concent 33.3 32.0-36.0 g/dL Red Cell Distribution Width 13.4 11.0-15.5 % Platelet Count 285 130-400 K/uL Mean Platelet Volume 9.0 7.5-10.5 fL Nucleated Red Blood Cells 0.0 0.0-0.19 % Immature Granulocyte % (Auto) 0.5 0-1 % Neutrophils (%) (Auto) 64.6 40.0-77.0 % Lymphocytes (%) (Auto) 26.1 21.0-51.0 % Monocytes (%) (Auto) 6.6 3.0-13.0 % Eosinophils (%) (Auto) 1.7 0.0-8.0 % Basophils (%) (Auto) 0.5 0.0-5.0 % Neutrophils # (Auto) 6.7 1.8-7.7 K/uL Lymphocytes # (Auto) 2.7 1.0-4.8 K/uL Monocytes # (Auto) 0.7 0.1-1.0 K/uL Eosinophils # (Auto) 0.18 0.00-0.70 K/uL Basophils # (Auto) 0.05 0.00-0.20 K/uL Absolute Immature Granulocyte (auto 0.05 0-1 K/uL Chemistry Labs: Test 03/05/25 12:04 03/05/25 03:59 03/04/25 03:15 03/03/25 19:40 Range/Units Whole Blood Glucose 153 H 70-110 MG/DL Sodium Level 140 136-145 mmol/L Potassium Level 4.1 3.5-5.1 mmol/L Chloride Level 104 101-111 mmol/L Carbon Dioxide Level 33 H 21-32 mmol/L Blood Urea Nitrogen 10 7-18 mg/dL Creatinine 0.7 0.5-1.3 mg/dL Glomerular Filtration Rate Calc 118 >90 mL/min Random Glucose 118 H 70-105 mg/dL Total Calcium 9.0 8.5-10.1 mg/dL Magnesium Level 2.10 1.80-2.40 mg/dL Total Bilirubin 0.3 # 0.2-1.0 mg/dL Aspartate Amino Transf (AST/SGOT) 13 10-37 U/L Alanine Aminotransferase (ALT/SGPT) 14 12-78 U/L Alkaline Phosphatase 99 50-136 U/L Total Protein 6.0 6.0-8.3 g/dL Albumin 2.7 L 3.5-5.0 g/dL Bedside Glucose Comment Notified Nurse Test 03/03/25 17:50 Range/Units Hemoglobin A1c 10.3 H 4.0-6.0 % Estimated Average Glucose (eAG) 249 H 70-126 mg/dL Total Creatine Kinase 35 21-232 U/L Troponin I High Sensitivity 64.7 4-75 ng/L Triglycerides Level 88 30-200 mg/dL Cholesterol Level 139 <200 mg/dL LDL Cholesterol 82 0-99 mg/dL HDL Cholesterol 47 29-71 mg/dL Thyroid Stimulating Hormone (TSH) 1.93 0.36-3.74 uIU/mL Coagulation Labs: Test 03/05/25 03:59 03/04/25 14:04 Range/Units Activated Partial Thromboplast Time 50.0 H 26.3-35.5 SEC Prothrombin Time 10.6 9.6-11.6 SEC Prothromb Time International Ratio 1.00 0.85-1.15 Diagnostics / Radiology: 2D echocardiogram 03/04/2025: Conclusion LVEF is 55%. Basal, mid and apical inferior hypokinesia. There is trace of mitral valve regurgitation noted. Impression and Plan: Severe multivessel coronary artery disease with left main involvement by cardiac catheterization 03/03/2025: Normal LV systolic function with an LVEF of 55% by 2D echocardiogram 03/04/2025: Possible recent non ST segment elevation NH late January (hospitalized in [place]): -continue single antiplatelet therapy and statin therapy -awaiting timing of coronary artery bypass -has had intermittent bradycardia into the 50 beat per minute range and beta- edita has been held Hypertension: -continue amlodipine 5 mg p.o. daily Hyperlipidemia: -continue atorvastatin 40 mg p.o. daily Ongoing tobacco use: Intermittent cocaine use: -advised on cessation of illicit drug use and tobacco use Type 2 diabetes mellitus PHYSICIAN ATTESTATION OF PHYSICIAN CORPORATE AIRCRAFT MECHANIC DOCUMENTATION: I attest that I was physically present for the james portions of the service and evaluated the patient with the Physician Corporate Travel Expert, and I reviewed and discussed the case with the Physician Corporate Travel Expert and made modifications to the Physician Corporate Travel Expert's findings and plans of care as documented above RAMBO GARZA Mar 05, 2025 12:32 MARYAM JOY MD Mar 05, 2025 14:54
[2025-03-05 17:57] LABS: HEPATITIS B SURFACE ANTIBODY Negative (Reactive)
[2025-03-06] VITALS (68 sets, daily range): BP systolic 93–241; BP diastolic 53–109; PULSE 61–135; RESP 5–36; TEMP 97.4–98.9; O2SAT 97–100
--- NOTE | 2025-03-06 02:00 | NUR ---
HEPARIN DRIP STOPPED AT THIS TIME PER ORDERED BY DR ROQUE TO STOP DRIP 6 HOURS PRIOR TO CABG SX SCHEDULED FOR 03/06/25 @ 0800
[2025-03-06 04:46] LABS: NUCLEATED RED BLOOD CELLS 0.0 % (0.0-0.19); PLATELET COUNT (AUTO) 319.0 K/uL (130-400); RED BLOOD CELL COUNT(AUTO) 4.6 MIL/uL (4.50-6.20); RED CELL DISTRIBUTION WIDTH 13.6 % (11.0-15.5); WHITE BLOOD COUNT (AUTO) 8.9 K/uL (4.8-10.8)
[2025-03-06 04:58] LABS: CREATININE 0.8 mg/dL (0.5-1.3); GLOMERULAR FILTR. RATE CALC 113.0 mL/min (>90); GLUCOSE,RANDOM 101.0 mg/dL (70-105); SODIUM SERUM 142.0 mmol/L (136-145); UREA NITROGEN, BLOOD 12.0 mg/dL (7-18)
[2025-03-06 05:02] LABS: ASPARTATE AMINOTRANSFERASE 25.0 U/L (10-37); LDL DIRECT 62.0 mg/dL (0-99); TOTAL PROTEIN, SERUM 6.3 g/dL (6.0-8.3)
[2025-03-06 05:03] LABS: INR 0.99 (0.85-1.15)
--- NOTE | 2025-03-06 06:39 | EKG ---
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
[2025-03-06] MEDS ORDERED: HEParin-NS 1,000 UNIT/500 ML 500 ML IV ONE (06:54)
[2025-03-06] MEDS ORDERED: PAPAVERINE HCL 30 MG/ML 2ML VIAL ONE (06:54)
[2025-03-06] MEDS ORDERED: NOREPINEPHRIN 8MG/250ML NS 250 ML IV PRN (08:00)
--- NOTE | 2025-03-06 08:05 | NUR ---
PT WAS TAKEN TO SURGERY AND SURGERY STAFF HAD BEEN NOTIFIED EARLIER OF NO BETA JULIO ORDERED. PT IN NO APPARENT DISTRESS.
[2025-03-06] MEDS ORDERED: NITROGLYCERIN 50MG/D5W 250ML 1 BOT ONE (09:08)
[2025-03-06] MEDS ORDERED: LIDOCAINE 2G/250ML 250 ML IV ONE (09:08)
--- NOTE | 2025-03-06 09:14 | PN ---
[facility] PROGRESS NOTE Date of Service: Mar 06, 2025 Time of Service: 09:11 SUBJECTIVE: [Patient was followed up today in room 227. Denies any chest pain at this time. Evaluation for multivessel bypass is planned; cardiothoracic surgeon consult is still pending. 2D echocardiogram performed yesterday showed LVEF of 55% with basal, mild, and apical inferior hypokinesia. Trace mitral valve regurgitation noted. Otherwise, patient has no complaints. Will await further recommendations from consulting services. 03/06/25 The patient is scheduled for surgery today: Coronary Artery bypass grafting today per Dr Elliott PATIENT WILL BE GOING TO ICU POST SURGERY ROOM 213. WE WILL BRING IN CRITICAL TEAM WHILE PATIENT IS IN ICU. REVIEW OF SYSTEMS CONSTITUTIONAL: Denies fevers, chills, or night sweats. reports having had weight loss of about 100 lbs in the last one year NEUROLOGICAL: Denies headache, amaurosis fugax, motor weakness, sensory deficit, vertigo/spinning sensation, gait abnormalities, or tremors. ENT: No hearing loss, otalgia, otorrhea, rhinitis, rhinorrhea, hoarseness, or sore throat. CARDIOVASCULAR: chest pain about a week ago PULMONARY: Denies any shortness of breath, cough, phlegm/sputum, hemoptysis, pleuritic chest pain. SLEEP: Denies morning headaches, daytime somnolence or napping. Denies difficulty falling asleep, staying asleep, waking from sleep. Denies knowledge of snoring. GASTROINTESTINAL: Denies any type of dysphagia to either liquids or solids. Denies nausea, vomiting, pyrosis, early satiety, abdominal pain, diarrhea, constipation, or changes in stool consistency or caliber. Denies coffee-ground emesis, hematemesis, hematochezia, or melanotic stools. GENITOURINARY: Denies frequency, urgency, nocturia, hematuria or incontinence (Storage/Irritative symptoms.) Low urinary stream, straining to void, urinary intermittency or hesitancy, splitting of the voiding stream, terminal dribbling. ENDOCRINOLOGIC: Denies polyuria, polydipsia, polyphagia or heat/cold intolerances. HEMATOLOGIC: Denies thrombophilia/previous clots, or coagulopathy/bleeding disorders. ONCOLOGIC: Denies personal history of malignancy. DERMATOLOGIC: Denies rashes or pruritus. PSYCHIATRIC: Denies any suicidal or homicidal ideation. Denies hallucinations. PHYSICAL EXAM GENERAL APPEARANCE: The patient is awake, alert, and oriented, in no acute cardiopulmonary distress. NEUROLOGICAL: Cranial nerves II-XII grossly intact. Neurological examination is nonfocal and patient is moving upper and lower extremities with no focal deficits HEENT: Face is symmetric. Pupils are equal and reactive. Extraocular movements are intact. NECK: Supple. No JVD. No thyromegaly. No submental, submandibular, pre- /postauricular, occipital or supraclavicular lymphadenopathy. CHEST: Normal chest expansion. No Telemetry. LUNGS: Absence of any rales, rhonchi or any wheezing. CARDIOVASCULAR: Regular. S1 and S2 normal. No appreciable rubs, murmurs or gallops. ABDOMEN: Soft, nontender, and nondistended. There is no rebound, voluntary guarding, or rigidity. : Deferred. No Conn. EXTREMITIES: Non-edematous and not cyanotic. No clubbing. Good capillary refill. SKIN: No skin breakdown. Vital Signs (last 8hr) Date Time Temp Pulse Resp B/P (MAP) Pulse Ox O2 Delivery O2 Flow Rate FiO2 03/06/25 08:30 97.3 66 16 130/72 100 Room Air 03/06/25 08:00 97.9 68 20 132/74 100 Room Air 03/06/25 04:50 99.0 61 18 146/82 100 Room Air LABS: Laboratory: Test 03/06/25 05:28 03/06/25 04:26 03/05/25 03:59 Range/Units Whole Blood Glucose 95 # 70-110 MG/DL White Blood Count 8.9 4.8-10.8 K/uL Red Blood Count 4.60 4.50-6.20 MIL/uL Hemoglobin 13.9 L 14.0-18.0 g/dL Hematocrit 41.4 L 42-54 % Mean Corpuscular Volume 90.0 79-99 fL Mean Corpuscular Hemoglobin 30.2 27.0-33.0 pg Mean Corpuscular Hemoglobin Concent 33.6 32.0-36.0 g/dL Red Cell Distribution Width 13.6 11.0-15.5 % Platelet Count 319 130-400 K/uL Mean Platelet Volume 9.4 7.5-10.5 fL Nucleated Red Blood Cells 0.0 0.0-0.19 % Prothrombin Time 10.5 9.6-11.6 SEC Prothromb Time International Ratio 0.99 0.85-1.15 Activated Partial Thromboplast Time 27.9 26.3-35.5 SEC Sodium Level 142 136-145 mmol/L Potassium Level 3.7 3.5-5.1 mmol/L Chloride Level 104 101-111 mmol/L Carbon Dioxide Level 33 H 21-32 mmol/L Blood Urea Nitrogen 12 7-18 mg/dL Creatinine 0.8 0.5-1.3 mg/dL Glomerular Filtration Rate Calc 113 >90 mL/min Random Glucose 101 70-105 mg/dL Hemoglobin A1c 10.3 H 4.0-6.0 % Estimated Average Glucose (eAG) 249 H 70-126 mg/dL Total Calcium 9.0 8.5-10.1 mg/dL Total Bilirubin 0.3 0.2-1.0 mg/dL Aspartate Amino Transf (AST/SGOT) 25 10-37 U/L Alanine Aminotransferase (ALT/SGPT) 21 12-78 U/L Alkaline Phosphatase 99 50-136 U/L Total Protein 6.3 6.0-8.3 g/dL Albumin 3.0 L 3.5-5.0 g/dL Triglycerides Level 84 30-200 mg/dL Cholesterol Level 130 <200 mg/dL LDL Cholesterol 62 0-99 mg/dL HDL Cholesterol 60 29-71 mg/dL Magnesium Level 2.10 1.80-2.40 mg/dL Current Medications Medications (Trade) Dose Ordered Sig/Marva Route PRN Reason Start Time Stop Time Status Last Admin Dose Admin Acetaminophen (TYLenol 325MG TAB) 650 mg Q6H PRN PO MILD PAIN (1-3) 03/03/25 18:00 04/02/25 17:59 Aminocaproic Acid 00898 mg/Sodium Chloride 480 ml @ 0 mls/hr AD PRN IV BLEEDING CONTROL 03/06/25 08:00 04/05/25 07:59 Amlodipine Besylate (NorvASC 5MG TAB) 5 mg Q24H PO 03/03/25 18:00 03/03/25 19:00 DC Amlodipine Besylate (NorvASC 5MG TAB) 5 mg Q24H PO 03/03/25 18:00 04/02/25 17:59 UNV Amlodipine Besylate (NorvASC 5MG TAB) 5 mg Q24H PO 03/03/25 19:30 04/02/25 19:29 03/05/25 20:39 5 MG Aspirin (Aspirin 81mg Chew Tab) 81 mg DAILY PO 03/04/25 09:00 04/03/25 08:59 03/05/25 08:52 81 MG Atorvastatin Calcium (LIPItor 40MG) 40 mg HS PO 03/03/25 21:00 04/02/25 20:59 03/05/25 20:39 40 MG Cefazolin Sodium (Ancef) 2 gm ONCALL IVP 03/05/25 23:30 03/07/25 23:29 Dextrose (D50w) 50 ml AD PRN IV HYPOGLYCEMIA PROTOCOL 03/03/25 18:00 04/02/25 17:59 Epinephrine HCl 10 mg/Sodium Chloride 250 ml @ 0 mls/hr AD PRN IV TITRATE 03/06/25 08:00 04/05/25 07:59 Famotidine (Pepcid 20mg Tab) 20 mg BID PO 03/03/25 21:00 04/02/25 20:59 03/05/25 20:39 20 MG Glucagon (Glucagon 1mg Kit) 1 mg AD PRN IM HYPOGLYCEMIA PROTOCOL 03/03/25 18:00 04/02/25 17:59 Heparin Sodium (Porcine) (HEParin 5,000 UNIT VIAL) 5,000 unit AD IV 03/03/25 19:30 04/02/25 19:29 Heparin Sodium/ Dextrose 250 ml @ 0 mls/hr Q6H IV 03/03/25 18:30 04/02/25 18:29 03/03/25 19:32 9.87 MLS/HR Insulin Glargine (LANtus 100 UNITS/ML 10 ML VIAL) 12 units HS SQ 03/03/25 21:00 04/02/25 20:59 03/05/25 20:32 12 UNITS Insulin Human Regular (humuLIN R 100 UNIT/ML 3ML) INSULIN SLIDING SCAL... ACHS SQ 03/03/25 21:00 04/02/25 20:59 03/05/25 20:31 3 UNIT Morphine Sulfate (morPHINE 2MG SYG) 2 mg Q6H PRN IVP SEVERE PAIN (7-10) 03/03/25 18:00 03/10/25 17:59 Nitroglycerin (Nitrostat) 0.4 mg AD PRN SL CHEST PAIN 03/03/25 18:00 04/02/25 17:59 Norepinephrine Bitartrate 250 ml @ 0 mls/hr AD PRN IV TITRATE 03/06/25 08:00 04/05/25 07:59 Ondansetron HCl (zoFRAN 4MG INJ) 4 mg Q6H PRN IVP NAUSEA/VOMITING 03/03/25 18:00 04/02/25 17:59 DIAGNOSTICS / RADIOLOGY: [ ] ASSESSMENT: NSTEMI, POA Status post coronary angiogram/[facility] with findings of severe multivessel coronary artery disease, POA History of tobacco use disorder, POA History of polysubstance abuse with cocaine and synthetic marijuana, POA Uncontrolled type 2 diabetes mellitus, POA Hypertension, POA Hyperlipidemia, POA PLAN: Continue cardiac monitoring and supportive care. Surgery: Cabg today: will follow post operative recommendation:CV: Dr Elliott CONSULT CRITICAL TEAM. Continue current medications and adjust as needed per cardiology recommendations. Monitor for any new symptoms, including chest pain or hemodynamic instability. Provide patient and family education regarding diagnosis and treatment options. Follow up with cardiology and surgical teams for ongoing management. Potassium and magnesium will be repleted per protocol All labs will be repeated in the morning, we will obtain a screening HIV test, hepatitis panel due to history of polysubstance abuse Discussed with patient to quit/abstain from smoking, cocaine and synthetic marijuana use, patient verbalized understanding and showed willingness to quit Case discussed with Dr. Goff, above plan was formulated ATTESTATION BY PHYSICIAN I have seen and examined the patient. I reviewed the documentation, medical decision making, and treatment plan as noted by the mid-level provider above. I agree with the findings and plan of care. Lima Goff MD, ELIZABETH NP Mar 06, 2025 09:14
[2025-03-06] MEDS ORDERED: SODIUM BICARB 50MEQ 50ML VIAL 200 ML ONE (09:19)
[2025-03-06] MEDS ORDERED: PROTamine SULFate 10 MG/ML 25ML VIAL IV ONE (09:19)
[2025-03-06] MEDS ORDERED: LIDOCAINE PF 100MG/5ML (2%) SYRINGE 5ML ONE ×2 (09:19→10:31)
[2025-03-06] MEDS ORDERED: NOREPINEPHRINE BITARTRATE 1 MG/1 ML ML IV ONE (09:19)
[2025-03-06] MEDS ORDERED: MIDAZOLAM HCL 1 MG/ML 2ML VIAL ONE (09:20)
[2025-03-06 09:55] LABS: ABG BASE EXCESS -2.4 mmol/L (-2.0-3.0); ABG HCO3 22.0 mmol/L (21.0-28.0); ABG OXYGEN SATURATION 99.9 % (94.0-98.0); ABG PCO2 37 mmHg (35-48); ABG PH 7.396 (7.350-7.450); CARBON MONOXIDE 0.2 % (0.5-1.5); DEVICE COMMENT 1; PO2, ARTERIAL BG > 500.0 mmHg (83.0-108.0); TEMPERATURE, CELSIUS BG 37.0 CELSIUS (35.5-37.0)
[2025-03-06] MEDS ORDERED: 0.9%NACL 10ML VIAL IVP PRN (10:00)
[2025-03-06] MEDS ORDERED: 0.9% NACL 500ML IV.SOLN 500 ML IV SCH (10:00)
[2025-03-06] MEDS ORDERED: DEXTROSE 50%-WATER 50 ML DISP.SYRIN IV PRN (10:00)
[2025-03-06] MEDS ORDERED: CALCIUM GLUC 1GM 1 GM in 0.9%NACL 50ML 50 ML IV PRN (10:00)
[2025-03-06] MEDS ORDERED: NOREPINEPHRINE BITARTRATE 8 MG in DEXTROSE 5%-WATER 250 ML IV PRN (10:00)
[2025-03-06] MEDS ORDERED: GLUCAGON 1MG KIT 1 MG ML IM PRN (10:00)
[2025-03-06] MEDS ORDERED: SODIUM BICARB 50MEQ 50ML VIAL IV PRN (10:00)
[2025-03-06 10:52] LABS: ABG BASE EXCESS -5.0 mmol/L (-2.0-3.0); ABG HCO3 19.4 mmol/L (21.0-28.0); ABG OXYGEN SATURATION 99.8 % (94.0-98.0); ABG PCO2 34 mmHg (35-48); ABG PH 7.374 (7.350-7.450); CARBON MONOXIDE 0.3 % (0.5-1.5); DEVICE COMMENT 2; PO2, ARTERIAL BG 485.8 mmHg (83.0-108.0); TEMPERATURE, CELSIUS BG 37.0 CELSIUS (35.5-37.0)
[2025-03-06 11:21] LABS: ABG BASE EXCESS 7.3 mmol/L (-2.0-3.0); ABG HCO3 30.1 mmol/L (21.0-28.0); ABG OXYGEN SATURATION 99.6 % (94.0-98.0); ABG PCO2 36 mmHg (35-48); ABG PH 7.540 (7.350-7.450); CARBON MONOXIDE 0.3 % (0.5-1.5); DEVICE COMMENT 3; PO2, ARTERIAL BG 462.3 mmHg (83.0-108.0); TEMPERATURE, CELSIUS BG 37.0 CELSIUS (35.5-37.0)
[2025-03-06] MEDS ORDERED: ALBUMIN (HUMAN) 5% 500 ML IV ONE (11:59)
[2025-03-06] MEDS ORDERED: COMPOUND IV MISC 1 EACH IVSOLN MISC PRN (12:00)
[2025-03-06 12:11] LABS: ABG BASE EXCESS -2.5 mmol/L (-2.0-3.0); ABG HCO3 20.3 mmol/L (21.0-28.0); ABG OXYGEN SATURATION 99.4 % (94.0-98.0); ABG PCO2 28 mmHg (35-48); ABG PH 7.472 (7.350-7.450); CARBON MONOXIDE 0.3 % (0.5-1.5); DEVICE COMMENT 4; PO2, ARTERIAL BG 448.4 mmHg (83.0-108.0); TEMPERATURE, CELSIUS BG 37.0 CELSIUS (35.5-37.0)
[2025-03-06 12:57] LABS: ABG BASE EXCESS 0.3 mmol/L (-2.0-3.0); ABG HCO3 23.6 mmol/L (21.0-28.0); ABG OXYGEN SATURATION 99.0 % (94.0-98.0); ABG PCO2 33 mmHg (35-48); ABG PH 7.471 (7.350-7.450); CARBON MONOXIDE 0.2 % (0.5-1.5); PO2, ARTERIAL BG 404.3 mmHg (83.0-108.0); TEMPERATURE, CELSIUS BG 37.0 CELSIUS (35.5-37.0); VENT MODE, BG SIMV, PS10 (ROOM AIR)
[2025-03-06 13:09] LABS: NUCLEATED RED BLOOD CELLS 0.0 % (0.0-0.19); PLATELET COUNT (AUTO) 198.0 K/uL (130-400); RED BLOOD CELL COUNT(AUTO) 3.2 MIL/uL (4.50-6.20); RED CELL DISTRIBUTION WIDTH 13.6 % (11.0-15.5); WHITE BLOOD COUNT (AUTO) 15.5 K/uL (4.8-10.8)
[2025-03-06] MEDS: INSULIN REGULAR, HUMAN 3ML 100 UNIT in 0.9%NACL 100ML 99 ML IV SCH (13:16)
[2025-03-06] MEDS: NITROGLYCERIN 50MG/D5W 250ML 250 BOT IV SCH (13:16)
[2025-03-06] MEDS: 0.9%NACL 1000ML 1,000 ML IV SCH (13:17)
[2025-03-06 13:23] LABS: INR 1.21 (0.85-1.15)
[2025-03-06 13:24] LABS: CREATININE 0.6 mg/dL (0.5-1.3); GLOMERULAR FILTR. RATE CALC 124.0 mL/min (>90); GLUCOSE,RANDOM 150.0 mg/dL (70-105); PHOSPHORUS 4.2 mg/dL (2.5-4.9); SODIUM SERUM 149.0 mmol/L (136-145); UREA NITROGEN, BLOOD 10.0 mg/dL (7-18)
[2025-03-06 13:45] LABS: ABG BASE EXCESS 2.0 mmol/L (-2.0-3.0); ABG HCO3 22.3 mmol/L (21.0-28.0); ABG OXYGEN SATURATION 98.4 % (94.0-98.0); ABG PCO2 23 mmHg (35-48); ABG PH 7.609 (7.350-7.450); CARBON MONOXIDE 0.3 % (0.5-1.5); DEVICE COMMENT AL, JULIE,RN; PO2, ARTERIAL BG 125.8 mmHg (83.0-108.0); TEMPERATURE, CELSIUS BG 37.0 CELSIUS (35.5-37.0); VENT MODE, BG SIMV, PS10 (ROOM AIR)
--- NOTE | 2025-03-06 13:45 | NUR ---
CABG TODAY. Addendum: 03/06/25 at 1602 by ARNAV CASTLE PT Amended: Links added.
[2025-03-06 13:49] LABS: ABG BASE EXCESS -1.1 mmol/L (-2.0-3.0); ABG HCO3 21.9 mmol/L (21.0-28.0); ABG OXYGEN SATURATION 98.8 % (94.0-98.0); ABG PCO2 31 mmHg (35-48); ABG PH 7.472 (7.350-7.450); CARBON MONOXIDE 0.3 % (0.5-1.5); DEVICE COMMENT AL,JULIE,RN; PO2, ARTERIAL BG 202.0 mmHg (83.0-108.0); TEMPERATURE, CELSIUS BG 37.0 CELSIUS (35.5-37.0); VENT MODE, BG SIMV, PS10 (ROOM AIR)
[2025-03-06] MEDS: MAGNESIUM 2GM PREMIX 50ML 50 ML IV PRN (13:54)
[2025-03-06] MEDS: ALBUMIN (HUMAN) 5% 250 ML IV PRN (13:54)
--- NOTE | 2025-03-06 14:19 | OP ---
DATE OF PROCEDURE: 03/06/2025 PREOPERATIVE DIAGNOSIS: Left main coronary artery disease. POSTOPERATIVE DIAGNOSIS: Left main coronary artery disease. PROCEDURES PERFORMED: * Off-pump coronary artery bypass grafting x 3 vessels (left internal mammary to LAD, reverse saphenous vein graft from the aorta to the first obtuse marginal coronary artery, reverse saphenous vein graft from the aorta to the posterior descending artery). * Left atrial exclusion with a 40-mm left atrial clip. This was justified to reduce the need for postoperative anticoagulation. The patient had a KAROLYN score of greater than or equal to 2. * Rigid sternal fixation with LUPE plating system. OPERATING SURGEON: Jared Elliott MD ANESTHESIOLOGIST: Dr. Mcdowell TYPE OF ANESTHESIA: General endotracheal conference services manager: Curt Barger BRIEF HISTORY: The patient is a 44-year-old male with history of hypertension and polysubstance abuse including synthetic marijuana and cocaine. The patient had been evaluated in [place] for chest pain and I believe was found to have coronary artery disease. He left without treatment and because he wanted to get a job, he had to be checked out and cleared by grinder hand. He underwent a heart catheterization which revealed not only left main coronary artery disease but right coronary artery disease. FINDINGS: The patient had good left ventricular function. He had good size coronary targets and good size conduits. He tolerated the procedure well. The patient also did not have any clot in his left atrial appendage and therefore it was excluded with a 40-mm AtriCure clip. DESCRIPTION OF PROCEDURE: The patient was brought to the operating room and placed on the operating room table in the supine position. He was given general endotracheal anesthesia. After placing lines and catheters, his chest, abdomen, and legs were prepped and draped in the usual sterile fashion. His left greater saphenous vein was harvested endoscopically and simultaneously, a mediastinoscopy performed and the left internal mammary artery was taken down. The patient was given a total of 20,000 units of IV heparin. The left internal mammary artery was clamped with bulldog proximally and divided distally. The pericardium was opened in the midline and the LAD was stabilized in its midsection with an Acrobat epicardial retractor. A 5-0 Prolene snare was placed proximal to the target site, which was opened longitudinally. The distal end of the left internal mammary artery was anastomosed to the side of the LAD over a 1-mm shunt using a running 7-0 Prolene suture and the pedicle was tacked to the epicardium with two 6-0 Prolene sutures. The bulldog clamp and the snare was released and the LAD was reperfused at the end of the procedure. The next target was first obtuse marginal coronary artery. This vessel was grafted very close to the AV groove. An end-to-side anastomosis was performed using a reverse saphenous vein graft. The anastomosis was done in an end-to-side fashion over a 1-mm shunt using a running 7-0 Prolene suture. This vein graft was then draped under the left internal mammary artery and cut to appropriate length to reach aorta. The final target was the posterior descending artery. This received the distal end of the second reverse saphenous vein graft. An end-to-side anastomosis was performed over a 1-mm shunt using a running 7-0 Prolene suture and this vein graft was draped along the right side of the heart and cut to appropriate length to reach aorta. Two 3.8-mm aortotomy holes were made with heartstring devices in the proximal ends of the vein grafts and anastomosed to the side of the aorta using running 6-0 Prolene sutures. The vein grafts were de-aired and all 3 systems were revascularized. A 40-mm AtriCure clip was then placed in the base of the left atrial appendage. The mediastinum and left chest were drained with 24-E[place] Jerome drain, secured to the skin with silk sutures. The patient was given protamine. The pericardium was loosely approximated with heart and grafts with several separate Ethibond sutures. The sternum was reapproximated with a combination of stainless steel wires and LUPE sternal plating system. The presternal fascia and subcutaneous tissues were closed using running layers of Vicryl suture. The skin was closed using a running intracuticular Monocryl stitch. The wounds were clean, dry, and covered with bandages. The patient was undraped, taken and extubated to the ICU in critical, but stable condition. TID: [id number] RECEIPT: [id number] cc: MALLORY BENNETT MD(User), MIGNON GALINDO MD(User), Curt Fuentes
--- NOTE | 2025-03-06 14:20 | HMCIMG ---
EXAM: XR Chest, 1 View. CLINICAL HISTORY: 44-year-old male preop. COMPARISON: None provided. FINDINGS: SOFT TISSUES: Skin fold projecting over the right lower chest. LUNGS: The lungs are clear. No consolidation. PLEURAL SPACES: No pleural effusion or pneumothorax. HEART: The heart size is normal. BONES: No acute osseous abnormality. IMPRESSION: 1. No acute findings. /[place]
--- NOTE | 2025-03-06 14:27 | HMCIMG ---
EXAM: CR Chest, 2 View. CLINICAL HISTORY: s/p CABG COMPARISON: Radiograph dated from earlier today FINDINGS: Endotracheal tube terminates above the ernesto. [place]-Jorge catheter and chest tubes are unchanged in positions. Relatively unchanged right basilar airspace disease. No pleural effusion or pneumothorax. Interval CABG. Heart size is stable. Pulmonary vessels and interstitial markings are within normal limits. IMPRESSION: 1. No acute cardiopulmonary findings. 2. Stable right basilar airspace disease. /[place]
[2025-03-06 14:56] LABS: ABG BASE EXCESS 3.4 mmol/L (-2.0-3.0); ABG HCO3 28.4 mmol/L (21.0-28.0); ABG OXYGEN SATURATION 98.1 % (94.0-98.0); ABG PCO2 45 mmHg (35-48); ABG PH 7.414 (7.350-7.450); CARBON MONOXIDE 0.3 % (0.5-1.5); DEVICE COMMENT AL,JULIE,RN; PO2, ARTERIAL BG 150.8 mmHg (83.0-108.0); TEMPERATURE, CELSIUS BG 37.0 CELSIUS (35.5-37.0); VENT MODE, BG SIMV, PS10 (ROOM AIR)
--- OUTSIDE RECORDS SUMMARY | 2025-03-06 15:33 | XMS | Continuity of Care Document ---
Author Author [facility] Organization [facility] Address [address] [place] [address] Phone Support Name Relationship Address Phone KATELYN AWAD MD Admittingxx [facility] [address] KATELYN AWAD MD Attendingxx [facility] [address] OCTAVIANO CEDILLO MD Erxxxxxxxxx [facility] [place] [address] KWADWO JOINER Attendingxx Do not inactivate Receive Orders send Results, Unavailable TAB DEUTSCH Next Of Kin [address] [place] [address] TAB DEUTSCH ECON [address] [place] [address] RAKESH MELTON GUAR [address] [place] [address] Care Team Providers Care Health And Safety Technician Name Role Phone Unknown, Doctor PCP Unavailable Care Teams Patient Care Team Team Status: Active Member Role Status Dates Doctor Unknown primary care physician Active KATELYN AWAD MD Admitting Provider Active KATELYN AWAD MD Attending Provider Active OCTAVIANO CEDILLO MD Emergency Provider Active KWADWO HMCDOCTVIRGINIE Attending Provider Active TAB DEUTSCH Next of Kin Active TAB DEUTSCH Emergency Contact Active RAKESH MELTON Guarantor Active Chief Complaint and Reason for Visit Chief Complaint Admit Date NON STEMI, NONCOMPLIANT WITH A ANTI PLAT ELET THER March 06, 2025 7:14am Reason for Visit Admit Date [id number] March 06, 2025 7:1 4am [id number] March 06, 2025 7:1 4am [id number] March 06, 2025 7:1 4am [id number] March 06, 2025 7:1 4am [id number] March 06, 2025 7:1 4am Allergies, Adverse Reactions, Alerts Allergen Type Severity Reaction Last Updated Verified Status No Known Allergies Allergy Unknown March 02, 2025 Yes Active Social History Smoking Status Status Start Date End Date Date of Observa tion Smokes tobacco daily (finding) March 02, 2025 8:20pm Observation Status Observation Response Date of Response Smoking Status Current Everyday Smoker January 8:20pm Have you smoked in the last 12 months? Yes March 02, 2025 8:20pm If Yes, Frequency and Amount (Packs) 1 pack a day March 02, 2025 8:20pm Do you dip or chew tobacco? No March 02, 2025 8:20pm Level of dependence High March 02, 2 025 8:20pm If you are a former smoker, when did you quit? NA September 16, 2016 2:33pm Would You Like Information o n Smoking Cessation Yes March 02, 2025 8:20pm Initiate information on smok ing cessation? Yes March 02, 2025 8:20pm Exposure to Second Hand Smoke No Ju ly 2024 8:20pm When help is needed, do you have support? NA September 05, 2016 3:30pm Do you have easy access to firearms? NA September 05, 2016 3:30pm Do your cultural/shinto b eliefs discourage suicide? NA September 05, 2016 3:30pm Patient Sex Male March 06, 2025 3:19pm Assigned Sex Male April, 1979 Problems Active Problems Medical Problem Onset Date Status Abscess or cellulitis of back Ac tive Boil of buttock Active Cellulitis of mid back region Ac tive Coronary artery disease Active Diabetes mellitus Active Diabetes mellitus type 2, uncontrolled Active Dyslipidemia Active Elevated liver enzymes Active Elevated troponin I level Active Headache Active Hypertension Active Hypokalemia Active NSTEMI (non-ST elevated myocardial infarction) Active Noncompliance Active Uncontrolled diabetes mellitus type 2 without co mplications Active Medications No known medications Procedures Procedure Date Performed Status MEASURE OF CARDIAC SAMPL & P RESSURE, L HEART, PERC APPROACH March 03, 2025 completed FLUOROSCOPY OF MULT COR ART USING L OSM CONTRAST March 03, 2025 completed 12-lead electrocardiogram March 02, 2025 4:21pm completed Portable CXR March 02, 2025 4:21pm completed Two dimensional echocardiography March 03 completed Left heart catheterization March 03, 2025 9:30 am active Procedure Notes Author MICHAELA VERAS [facility] Note Date/Time March 03, 2025 11: 16am [facility] [address] [place], [place] [address] PDOC PROCEDURE NOTE Report Status: Signed PT: RAKESH MELTON : 1980 ADM: 03/02/25 ACT: [id number] AGE: 44 SVC: TELEMETRY MR: [id number] FC: CT DISCH DATE: LOC: T2IMT RPT#: [id number] STA: ADM IN PROCEDURE NOTE PROCEDURE NOTE DATE OF PROCEDURE: DATE: 03/03/25 PROCEDURE NOTE: Procedures performed: 1. Left heart catheterization 2. Selective left and right coronary angiography 3. Moderate sedation for 11 minutes Indications for procedure: NSTEMI Attending physician: Michaela Nieves MD Anesthesia: Moderate sedation was used for the duration of this procedure for total of 11 minutes with 1mg of Versed and 25mcg of fentanyl. Patient's vital signs including continuous telemetry was monitored monitored at all times by the attending physician with no complications seen from the anesthesia. Medicationswere administered by a trained registered nurse under my direct supervision. Description of procedure: After informed consent was obtained and patient was explained all the risks of the procedure including but not limited to local bleeding, hematoma, pseudoaneurysm, and aneurysm formation of the vessel, stroke, heart attack or even . Patient has signed informed consent and agreed. We decided to proceed and put the patient to the labor gang supervisor suite. We prepped right wrist vascular access site in usual sterile fashion using universal precautions a numbing the area with 2% lidocaine. We used modified Seldinger technique and were able to canulate the right radial artery and insert a diagnostic 6 Armenian sheath. We used Flomaton catheter for the left coronay and right coronary system. we crossed the aortic valve with type catheter and J wire. We measured interventricular pressure. No gradient across aortic valve. Multiple views were taken under fluoroscopy. All catheters exchanges were done over a wire. Findings: 1- Left main:- It bifurcates into LAD and left circumflex arteries. There is distal 70-80% hazy lesion in the left main extending into the LAD 2- LAD:- It has 2 diagonal branches. There is proximal 90% disease 3- Left circumflex artery: It has 2 obtuse marginal branches. There is proximal 90% disease 4- RCA: It is the dominant vessel. There is to sit chronic total occlusion at the mid segment of RCA. Distally was filled via collaterals coming from the left system 5- LVEDP: 26 mm Hg Conclusion 1. NSTEMI 2. Severe multivessel coronary artery disease 3. Diastolic dysfunction Recommendations: We will be referred to [facility] for CABG evaluation COMPLICATION: None MICHAELA VERAS MD CARDIO Mar 03, 2025 11:16 Electronically Signed by: MICHAELA VERAS MD CARDIO 2nd Electronically Signed by: Signed Date/Time: 03/03/25 1116 2nd Signed Date/Time: Signed Label: <<Signature on File>> 2nd Signed Label: Relevant Diagnostic Tests and/or Laboratory Data Laboratory Results Test Date/Time Result Interpretation Reference Range Result Comment Performing Site White Blood Count March 03, 2025 4:55am 8.1 4.5-11.0 MAIN LAB [id number] [address] [place] [address] [place] [address] Red Blood Count March 03, 2025 4:55am 4.39 4.5-5.9 MAIN LAB [id number] [address] [place] [address] [place] [address] Hemoglobin March 03, 2025 4:55am 13.2 13.5-17.5 MAIN LAB [id number] [address] [place] [address] [place] [address] Hematocrit March 03, 2025 4:55am 39.6 41.0-53.0 MAIN LAB [id number] [address] [place] [address] [place] [address] Mean Corpuscular Volume March 03, 2025 4:55am 90.2 80.0-100.0 MAIN LAB [id number] [address] [place] [address] [place] [address] Mean Corpuscular Hemoglobin March 03, 2025 4:55am 30.1 26.0-34.0 MAIN LAB [id number] [address] [place] [address] [place] [address] Mean Corpuscular Hemoglobin Concent March 03, 2025 4:55am 33.3 31.0-37.0 MAIN LAB [id number] [address] [place] [address] [place] [address] Red Cell Distribution Width March 03, 2025 4:55am 13.3 11.5-15.5 MAIN LAB [id number] [address] [place] [address] [place] [address] Platelet Count March 03, 2025 4:55am 297 150-400 MAIN LAB [id number] [address] [place] [address] [place] [address] Mean Platelet Volume March 03, 2025 4:55am 9.5 7.4-11.0 MAIN LAB [id number] [address] [place] [address] [place] [address] Neutrophils (%) (Auto) March 03, 2025 4:55am 48.7 40.0-70.0 MAIN LAB [id number] [address] [place] [address] [place] [address] Lymphocytes (%) (Auto) March 03, 2025 4:55am 42.3 22.2-43.6 MAIN LAB [id number] [address] [place] [address] [place] [address] Monocytes (%) (Auto) March 03, 2025 4:55am 6.0 0.0-7.3 MAIN LAB [id number] [address] [place] [address] [place] [address] Eosinophils (%) (Auto) March 03, 2025 4:55am 2.1 0.0-4.1 MAIN LAB [id number] [address] [place] [address] [place] [address] Basophils (%) (Auto) March 03, 2025 4:55am 0.7 0.0-1.8 MAIN LAB [id number] [address] [place] [address] [place] [address] Nucleated Red Blood Cells % March 03, 2025 4:55am 0.0 0.0-0.0 MAIN LAB [id number] [address] [place] [address] [place] [address] Neutrophils # (Auto) March 03, 2025 4:55am 3.9 1.8-7.7 MAIN LAB [id number] [address] [place] [address] [place] [address] Lymphocytes # (Auto) March 03, 2025 4:55am 3.4 1.0-5.0 MAIN LAB [id number] [address] [place] [address] [place] [address] Monocytes # (Auto) March 03, 2025 4:55am 0.5 0.0-0.8 MAIN LAB [id number] [address] [place] [address] [place] [address] Eosinophils # (Auto) March 03, 2025 4:55am 0.2 0.0-0.5 MAIN LAB [id number] [address] [place] [address] [place] [address] Basophils # (Auto) March 03, 2025 4:55am 0.1 0.0-0.2 MAIN LAB [id number] [address] [place] [address] [place] [address] Nucleated Red Blood Cells # March 03, 2025 4:55am 0.0 0.0-0.0 MAIN LAB [id number] [address] [place] [address] Prothrombin Time March 03, 2025 4:55am 13.4 12.3-15.0 MAIN LAB [id number] [address] [place] [address] [place] [address] INR International Normalized Ratio March 03, 2025 4:55am 0.99 0.85-1.14 INR THERAPEUTIC RANGES:2.0-3.0 FOR PREVENTION OR TREATMENT OF DVT AND PULMONARY EMBOLISM.2.5-3.5 FOR TREATMENT OF RECURRING HI AND PREVENTION OF ARTERIAL THROMBOEMBOLISM, INCLUDING PATIENTS WITH MECHANICAL HEARTVALVES. MAIN LAB [id number] [address] [place] [address] Activated Partial Thromboplast Time March 03, 2025 8:33am 85.4 23.2-39.4 SIVA LOONEY RN WAS CALLED BY BRANDI QUAN ON 03/03/25 AT 0917. CRITICAL VALUES WERE READ BACK AND ACKNOWLEDGED.PTT THERAPEUTIC RANGE: 68-111 SECONDS. MAIN LAB [id number] [address] [place] [address] Glucose Level March 03, 2025 4:55am 189 70-110 MAIN LAB [id number] [address] [place] [address] Blood Urea Nitrogen March 03, 2025 4:55am 10 8.9-20.6 MAIN LAB [id number] [address] [place] [address] Creatinine March 03, 2025 4:55am 0.7 0.72-1.25 MAIN LAB [id number] [address] [place] [address] BUN/Creatinine Ratio March 03, 2025 4:55am 14 10-18 MAIN LAB [id number] [address] [place] [address] Glomerular Filtration Rate March 03, 2025 4:55am 131 >60 Stages of Chronic Kidney Disease:Guidelin es to use only for patients with known renal diseaseSTAGE DESCRIPTION GFR 1 Kidney damage and normal >89 mL/min/1.73m or elevated GFR 2 Kidney damage and mildly 60-89 mL/peewee/1.73m low GFR 3 Moderately low GFR 30-59 mL/min/1.73m 4 Severely low GFR 15-29 mL/min/1.73m 5 Kidney failure <15 mL/min/1.73m MAIN LAB [id number] [address] [place] [address] Sodium Level March 03, 2025 4:55am 137 136-145 MAIN LAB [id number] [address] [place] [address] Potassium Level March 03, 2025 4:55am 4.4 3.5-5.1 MAIN LAB [id number] [address] [place] [address] Chloride Level March 03, 2025 4:55am 105 98-107 MAIN LAB [id number] [address] [place] [address] Carbon Dioxide Level March 03, 2025 4:55am 25 22-29 MAIN LAB [id number] [address] [place] [address] Anion Gap March 03, 2025 4:55am 11.4 5-15 MAIN LAB [id number] [address] [place] [address] Calcium Level March 03, 2025 4:55am 8.4 8.4-10.2 MAIN LAB [id number] [address] [place] [address] 13348 Total Protein March 03, 2025 4:55am 5.8 6.4-8.3 MAIN LAB [id number] [address] [place] [address] Albumin March 03, 2025 4:55am 2.9 3.5-5.0 MAIN LAB [id number] [address] [place] [address] Albumin/Globul in Ratio March 03, 2025 4:55am 1.0 1.0-2.2 MAIN LAB [id number] [address] [place] [address] Globulin March 03, 2025 4:55am 2.9 2.0-3.5 MAIN LAB [id number] [address] [place] [address] Total Bilirubin March 03, 2025 4:55am 0.2 0.2-1.2 MAIN LAB [id number] [address] [place] [address] Aspartate Amino Transf (AST/SGOT) March 03, 2025 4:55am 16 15-37 MAIN LAB [id number] [address] [place] [address] Alanine Aminotransfera se (ALT/SGPT) March 03, 2025 4:55am 12 0-55 MAIN LAB [id number] [address] [place] [address] Alkaline Phosphatase March 03, 2025 4:55am 96 50-136 MAIN LAB [id number] [address] [place] [address]98 Troponin I March 03, 2025 4:55am 0.083 0-0.033 Normal: 0.000-0.033 Boothe Zone: 0.034-0.299 * *Critical: 0.300 and above (AMI cutoff) NOTE: Diagnosis Of Myocardial Infarction Requires * *correlation With Cardiac Type Pain And EKG Changes. MAIN LAB [id number] [address] [facility] [address] B-Type Natriuretic Peptide March 02, 2025 4:41pm 212 <100 MAIN LAB [id number] [address] [place] [address] Phosphorus Level March 03, 2025 4:55am 3.5 2.3-4.7 MAIN LAB [id number] [address] [place] [address] Magnesium Level March 03, 2025 4:55am 2.0 1.6-2.6 MAIN LAB [id number] [address] [place] [address] Glucometer March 03, 2025 11:38am 243 70-105 Time RangeBefore Meals 70-105mg/dLOne Hour After Meals <160mg/dLExpecte d Values for Neonates 30-60mg/dL MAIN LAB [id number] [address] [place] [address] Urine Amphetamines Screen March 02, 2025 6:47pm NEGATIVE NEGATIVE # Cut off Ranges ## Amphetamines AMP 1000 ng/ml ## Barbituates BAR 200 ng/ml ## Benzodiazepines BZO 200 ng/ml ## Cocaine MIKY 300 ng/ml ## Opiates OPI 300 ng/ml ## Phencyclidine PCP 25 ng/ml ## THC 50 ng/ml ## MAIN LAB [id number] [address] [place] [address] Urine Barbiturates Screen March 02, 2025 6:47pm NEGATIVE NEGATIVE MAIN LAB [id number] [address] [place] [address] Urine Benzodiazepine s Screen March 02, 2025 6:47pm NEGATIVE NEGATIVE MAIN LAB [id number] [address] [place] [address] Urine Cocaine Screen March 02, 2025 6:47pm POSITIVE NEGATIVE MAGDALENO DEL CID RN WAS CALLED BY MARLEN SAN ON 03/02/25 AT 1934. CRITICAL VALUES WERE READ BACK AND ACKNOWLEDGED. MAIN LAB [id number] [address] [place] [address] Urine Opiates Screen March 02, 2025 6:47pm NEGATIVE NEGATIVE MAIN LAB [id number] [address] [place] [address] Urine Phencyclidine (PCP) Level March 02, 2025 6:47pm NEGATIVE NEGATIVE MAIN LAB [id number] [address] [place] [address] Urine Marijuana (THC) Screen March 02, 2025 6:47pm NEGATIVE NEGATIVE Results obtained are unconfirmed screening results and should not be used for NON-MEDICAL PURPOSES. MAIN LAB [id number] [address] [place] [address] Diagnostic Imaging Reports Author MICHAELA VERAS [facility] Report Date/Time March 03, 2025 7:0 8am [facility] [address] [place] [address] __ ECHOCARDIOGRAM REPORT Signed Signed Signed __ PT: RAKESH MELTON : 1980 ADM: 03/02/25 ACCT: [id number] AGE: 44 SVC: 03/02/25 MR: [id number] FC: CT DISCH: LOC: T2IMT ORD#: [id number] STA: ADM IN RM/BD: 205-A RPT#: [id number] __ REFERRING PHYSICIAN: LEANA CORDERO EXAM: 2DECHO COMPLETE EXAM EXAM DATE/TIME: 03/03/25 __ REASON FOR EXAM: NON STEMI, NONCOMPLIANT WITH A ANTI PLATELET THER APPROVED REPORT EXAM: Comprehensive 2D, Doppler, and color-flow Echocardiogram HR: 65 bpm Indications: Elevated troponin Hx DM,HTN,CAD Left Ventricle The left ventricle is normal size. Left ventricular systolic function is mild tomoderately decreased. Mild concentric left ventricular hypertrophy. There was tgkh-dt-zdunexpm global wall hypokinesis Moderate diastolic dysfunction is present (pseudonormal filling). LVEF is 40-45%. Right Ventricle The right ventricle is normal size. The right ventricular systolic function is normal. Atria Left atrium is borderline dilated. The right atrium size is normal. Aortic Valve The aortic valve is normal in structure. There is no aortic valvular stenosis. Trace aortic regurgitation. Mitral Valve The mitral valve is normal in structure. Mild to moderate mitral regurgitation. Tricuspid Valve The tricuspid valve is normal in structure. Trace tricuspid regurgitation. Great Vessels The aortic root is normal in size. Pericardium There is no pericardial effusion. 2D Dimensions LVOT 2.1 cm (M/F) 1.5-2.5 LA Volume 47.3 mL LA Volume Index 28 mL/m2 (M/F) 16-34 M-Mode Dimensions Left Atrium 2.60 (2.5-4.0cm) IVSd 0.77 (0.7-1.1cm) Aortic Root 2.62 (2.2-3.7cm) LVDd 5.81 (4.0-5.6cm) Aortic Cusp Exc 1.44 (1.5-2.0cm) PWd 0.73 (0.7-1.1cm) MV EPSS 1.5 (<0.5cm) IVSs 0.93 cm FS (%) 27 % LVDs 4.21 (2.0-3.8cm) ESV(Teich) 79.2 ml PWs 1.12 cm LVEF(%) 53 (>50%) LV Diastology E/A Ratio 1.5 E/E' 15.2 Aortic Valve LVOT Max 104.46 (70-110 cm/s) LVOT VTI 23.89 cm AoV Peak Jac. 151.93 (50-130 cm/s) AO Peak GR. 9.23 mmHg AO Mean GR. 4.76 (<5 mmHg) AO VTI 35.69 (18-25 cm) MEL (VTI) 2.37 (2.5-4.5 cm2) Mitral Valve MV E Max Jac. 107.56 (40-130 cm/s) MVA VTI 2.57 (4.0-6.0 cm2) MV A Velocity 73.08 (40-130 cm/s) E/A Ratio 1.48 MV Decel. Time 113.01 (160-240 ms) MV Mean Gr. 2.06 (<2mmHg) MV PHT 51.53 ms MVA PHT 4.27 cm2 Pulmonary Valve PV Peak Velocity 78.46 (50-150 cm/s) Tricuspid Valve TR P. Velocity 281.02 cm/s RAP Estimate 8.00 mmHg RVSP 39.59 mmHg Conclusion Left ventricular systolic function is mild to moderately decreased. There was bqpa-vt-dadglxit global wall hypokinesis LVEF is 40-45%. Moderate diastolic dysfunction is present (pseudonormal filling). Mild to moderate mitral regurgitation. Signed by: MICHAELA VERAS MD CARDIO Date/Time: 03/03/2508 Signed by: Date/Time: Author OCTAVIANO CEDILLO [facility] Report Date/Time March 03, 2025 7:1 1am [place] [address] __ ELECTROCARDIOGRAM REPORT Signed Signed Signed __ PT: RAKESH MELTON : 1980 ADM: 03/02/25 ACCT: [id number] AGE: 44 SVC: 03/02/25 MR: [id number] FC: CT DISCH: LOC: T2IMT ORD#: [id number] STA: ADM IN RM/BD: 205-A RPT#: [id number] __ REFERRING PHYSICIAN: OCTAVIANO CEDILLO MD EXAM: EKG 12 LEAD EXAM DATE/TIME: 072721 __ REASON FOR EXAM: NON STEMI, NONCOMPLIANT WITH A ANTI PLATELET THER [facility] Test Date: 2025-03-02 Test Time: 16:27:28 Pat Name: RAKESH MELTON Department: ER Room: [facility] Gender: M Circulation Man: anisa : 1980 Requested By: OCTAVIANO CEDILLO Order Number: [id number] Reading MD: Octaviano Cedillo Measurements Intervals [place] Rate: 79 P: 76 OH: 119 QRS: 100 QRSD: 110 T: -67 QT: 366 QTc: 419 Interpretive Statements Sinus rhythm Borderline short OH interval Right axis deviation Repol abnrm suggests ischemia, diffuse leads No previous ECG available for comparison Electronically Signed On 03-03-2025 07:11:10 CDT by Octaviano Cedillo Signed by: OCTAVIANO CEDILLO MD *ER* Date/Time: 03/03/25710 Signed by: Date/Time: Author OCTAVIANO MENA [facility] Report Date/Time March 03, 2025 8:3 6am [place] [id number] __ DIAGNOSTIC IMAGING REPORT Signed Signed Signed __ PT: RAKESH MELTON : 1980 ADM: 03/02/25 ACCT: [id number] AGE: 44 SVC: 03/02/25 MR: [id number] FC: CT DISCH: LOC: T2IMT ORD#: [id number] STA: ADM IN RM/BD: 205-A RPT#: [id number] __ REFERRING PHYSICIAN: OCTAVIANO CEDILLO MD EXAM: CHEST PORTABLE CXR EXP EXAM DATE/TIME: 718128 __ REASON FOR VISIT: NON STEMI, NONCOMPLIANT WITH A ANTI PLATELET THER REASON FOR EXAM: CHEST PAIN.... SINGLE VIEW OF THE CHEST. COMPARISON: None INDICATION: Chest pain FINDINGS: The lungs are without focal consolidation. No large effusion or pneumothorax isseen. The cardiomediastinal silhouette is unremarkable. No acute osseous abnormality. IMPRESSION: 1. No acute airspace disease detected. 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 Home Phone: Payer Policy Id Coverage Id Subscriber's Name Subscriber Id Effective Date Expiration Date Javy Tobar [id number] 01 Rakesh Melton [id number] 2025 2025 Encounters Encounter Location(s) Arrival/Admit Date Discharge/Depart Date Provider(s) Registered Referred [facility]. March 06, 2025 7:14am HALFPENNY HMCDOCTOR Discharged Inpatient [facility]. March 02, 2025 6:52pm March 03, 2025 3:33pm KATELYN AWAD MD Assessments Author SONU DOWNS [facility] Authored March 03, 2025 4:1 8pm Plan of Treatment Future Tests Future scheduled test information is unavailable Pending Tests Pending diagnostic test information is unavailable Future Visits Future appointment information is unavailable Referrals to Other Providers Reason for Referral Referral Start Date Provider Provider Contact Information Provider Address UNKNOWN Infectious Disease MIGNON NEGRON MD Wor k Phone: [id number] [address] General Surgery MARLYS MARTINEZ MD Work Phone: [address] [place] [address] Future Procedures Procedure Name Ordered Date Scheduled Date DISCHARGE FROM ER May 02, 2015 3:34am Se pt2014 3:33am DISCHARGE FROM ER August 26, 2016 12:43pm Azeem uary 2016 12:43pm Vancomycin Indication September 05, 2016 12:36pm September 05, 2016 12:33pm Telemetry September 05, 2016 1:20pm Februa 2016 1:06pm VITAL SIGNS September 05, 2016 1:20pm ua 2016 1:06pm Admit from emergency room September 05, 2016 1:2 0pm September 05, 2016 1:06pm Vancomycin Indication September 05, 2016 1:20pm September 05, 2016 1:06pm Vancomycin Indication September 05, 2016 1:20pm September 05, 2016 1:06pm PHYSICIAN CONSULT September 05, 2016 5:53pm Febr uary 2016 5:51pm Nurse Communication September 05, 2016 6:06pm Fe bruary 2016 6:05pm VTE Prophylaxis September 05, 2016 7:29pm Februa 2016 7:26pm Click Edit to view VTE SCORE September 05, 2016 7:29pm September 05, 2016 7:26pm GLUCOMETER Q6H September 05, 2016 7:29pm Februa ry 2016 7:26pm Nurse Communication September 06, 2016 8:38am Fe bruary 2016 8:38am SEQUENTIAL COMPRESSION DEVICE September 06, 2016 1:27pm September 06, 2016 1:25pm INCENTIVE SPIROMETRY September 06, 2016 1:27pm F ebruary 2016 1:25pm Antibiotic extension September 06, 2016 1:27pm F ebruary 2016 1:25pm PULSE OXIMETRY OVERNIGHT September 06, 2016 1:34 pm September 06, 2016 1:33pm Simple Face Mask September 06, 2016 1:34pm Febru uriel2016 1:33pm GLUCOMETER AC&HS September 06, 2016 2:38pm Febru uriel 2016 2:33pm ISOLATION REQUEST September 08, 2016 7:48am Febr 2016 7:47am PHYSICIAN CONSULT September 10, 2016 4:30pm Febr uary 2016 WOUND CARE September 10, 2016 4:33pm Februa 2016 4:30pm DISCHARGE PLANNING September 15, 2016 1:42pm Fe bruary 2016 Nurse Communication September 16, 2016 10:21am September 16, 2016 10:18am DISCHARGE INHOUSE September 16, 2016 12:18pm September 16, 2016 12:16pm DISCHARGE FROM ER February 24, 2017 11:21am February [id number] 11:20am VITAL SIGNS March 02, 2025 4:21pm January 4:21pm PHYSICIAN CONSULT March 02, 2025 7:01pm March [id number] 6:52pm Telemetry March 02, 2025 7:01pm January 6:52pm GLUCOMETER Q6H March 03, 2025 1:06am March [id number] 1:03am LEFT HEART CATH W VGRAM/COROS March 03, 2025 7 :25am March 03, 2025 9:30am Nurse Communication March 03, 2025 11:21am Aug ust 2024 11:20am Nurse Communication March 03, 2025 11:52am Mar 11:51am DISCHARGE INHOUSE March 03, 2025 2:12pm Mar 2024 2:09pm Future Medications Future medication information is unavailable Patient Instructions Instruction Admit Date Shopping for a Healthy Diet (ED) Sept2012 8:32am Cigarette Smoking and Its Health Risks ( GEN) April 06, 2013 8:32am Diabetic Foot Care (ED) April 06 8:32am Diabetes Mellitus Type 2 in Adults (ED) April 06, 2013 8:32am Basic Carbohydrate Counting (GEN) Sept2012 8:32am Meal Planning with Diabetes Exchanges (G EN) April 06, 2013 8:32am Chronic Hypertension (ED) April 06, 2013 8:32am DI for Skin Abscess August 26, 2016 8 :45am Trimethoprim/Sulfamethoxazole (Alternati ve Therapy) September 05, 2016 10:31am DI for Diabetes Type 2 September 05 10:31am DI for Incision and Drainage of a Skin A bscess September 05, 2016 10:31am DI for Boils February 24, 2017 9:43 am Heart Attack March 02, 2025 6:52 pm Goals Acute Goals Author Authored Date Patient to Receive [facility] March 03, 2025 4:12pm Pt's pain will be at tolerab le level [facility] March 03, 2025 4:12pm Patient understands educatio nal topics [facility] March 03, 2025 4:12pm Skin integrity intact [facility] March 03, 2025 4:12pm Absence of falls [facility] March 03, 2025 4:12pm Absence of deep venous thrombosis [facility] March 03, 2025 4:12pm Knowledge of discharge plan [facility] March 03, 2025 4:12pm Alleviation of Anxiety [facility] March 03, 2025 4:12pm Cardiac output WSP [facility] March 03, 2025 4:12pm Circulatory function WSP [facility] March 03, 2025 4:12pm Patient understands educatio nal topics [facility] March 03, 2025 4:12pm Consultation Note Author MICHAELA VERAS [facility] Note Date/Time March 03, 2025 7:2 5am [facility] [address] [place], [place] [address] [facility] CONSULTATION Report Status: Signed PT: RAKESH MELTON : 1980 ADM: 03/02/25 ACT: [id number] AGE: 44 SVC: TELEMETRY MR: [id number] FC: CT DISCH DATE: LOC: T2IMT RPT#: [id number] STA: ADM IN CARDIOLOGY CONSULTATION NOTE DATE OF CONSULTATION NOTE: 03/03/25 REASON FOR CONSULT: NSTEMI HISTORY OF PRESENT ILLNESS: This is a 44-year-old male with past medical history of diabetes mellitus, hypertension, hyperlipidemia who came to ER for cardiac checkup as he said. Patient said that he was having chest pain when he was in [place]. It there, he said that he had angiogram done and he was told that he has a three-vessel blocked. However, no intervention was done for the patient and he was told that he needs to go back to [place] for follow up. Patient came to the ER for checkup. His troponin was mildly elevated and was trending up. ECG showed sinus rhythm with a diffuse ischemic changes. Echocardiography also that was done came back showing moderate reduction left ventricular systolic function with ejection fraction 40-45%. At the moment of evaluation, patient denied having any chest pain or shortness of breath, no palpitation, no lightheaded dizziness, no syncopal near syncope. PAST MEDICAL HISTORY: As above ALLERGIES: Coded Allergies: No Known Allergies (Verified Allergy, Unknown, 03/02/25) SOCIAL HISTORY: Denied drinking alcohol or using illicit drugs. Lives with the family FAMILY HISTORY Hypertension HOME MEDS: Discontinued Scripts Mupirocin Calcium (MUPIROCIN) 15 Gm Cream..g., 1 APPLICATIO NS BID for 10 Days Prov:MARLO WILLARD 02/24/17 Chlorhexidine Gluconate (BETASEPT) 3,780 Ml Liquid, 1 APPLICATIO TOP BID for 10 Days Prov:MARLO WILLARD 02/24/17 Sulfameth-Trim Ds 800 Mg-160 Mg* (BACTRIM DS 800 MG-160 MG*) 160 Mg/800 Mg Tablet, 1 TAB PO BID for 10 Days, TAB Prov:MARLO WILLARD 02/24/17 Metformin Hcl Tablet (GLUCOPHAGE TABLET) 500 Mg Tablet, 1000 MG PO BIDWM for 30 Days, TABLET *TAKE WITH FOOD OR MILK (IF NOT LACTOSE INTOLERANT). Prov:MARLO WILLARD 02/24/17 Pantoprazole Sodium (PANTOPRAZOLE SODIUM) 40 Mg Tablet.dr, 40 MG PO DAILY for 30Days Prov:IKE SOLIZ MD 09/16/16 Insulin Detemir (Levemir Flextouch) 100 Unit/1 Ml Insuln.pen, 20 UNIT SQ BID for30 Days Prov:IKE SOLIZ MD 09/16/16 Glimepiride 1 Mg Tablet* (AMARyl 1 MG TABLET*) 1 Mg Tab, 2 MG PO DAILY WITH A MEAL for 30 Days, TAB Prov:IKE SOLIZ MD 09/16/16 Tramadol/Apap 37.5 Mg-325 Mg Tablet* (ULTRACET 37.5 MG-325 MG TABLET*) 1 Each Tablet, 2 TAB PO EVERY 4 TO 6 HOURS, #20 TAB Prov:MARLO WILLARD 08/26/16 Sulfameth-Trim Ds 800 Mg-160 Mg* (BACTRIM DS 800 MG-160 MG*) 160 Mg/800 Mg Tablet, 1 TAB PO BID, #14 TAB Prov:MARLO WILLARD 08/26/16 Cephalexin Monohydrate Capsule* (KEFLEX CAPSULE*) 500 Mg Capsule, 500 MG PO BID for 14 Days, CAP Prov:MARLO WILLARD 08/26/16 INPATIENT MEDS: Current Medications Medications Dose Ordered Sig/Marva Start Time Stop Time Status Last Admin Heparin Sodium (Porcine) 250 ml @ 0 mls/hr TITR 03/02/25 18:35 03/03/25 18:34 03/02/25 19:11 Insulin Human Regular SEE PROTOCOL TABLE ... SSI6 03/03/25 01:05 Dextrose 25 gm UD PRN 03/03/25 01:05 VITAL SIGNS Vital Signs Date Time Temp Pulse Resp B/P (MAP) Pulse Ox O2 Delivery O2 Flow Rate FiO2 03/03/25 00:00 97.3 77 18 117/59 (78) 99 03/02/25 20:32 Room Air* 0 21 REVIEW OF SYSTEMS All systems reviewed and were negative with the exception of HPI PHYSICAL EXAM General Appearance: Alert, oriented x3, no acute distress, well developed, nourished. HEENT: Normocephalic, Non-traumatic, PERRL, EOMI, mucous membrane moist Neck: Supple, non-tender, no masses, no JVD, no bruits. Chest: Good air entry bilaterally, CTAB, no wheeze, no creackles, mo rubs Heart: RRR, S1+S2, no murmur, no rub, no peripheral edema. Abdomen: Soft, positive bowel sounds, nondistended, no guarding, nontender Neurological: Normal speech, CNII to XII grossly intact, move all limbs, sensoryfunction intact. Musculoskeletal: No tenderness, full range of motion. Skin: warm,dry,intact Extremities: No cyanosis, no clubbing, no edema. LABORATORY RESULTS Laboratory Tests Test 03/02/25 16:41 03/02/25 18:47 03/03/25 01:11 03/03/25 04:55 B-Type Natriuretic Peptide 212 pg/mL (<100) Urine Opiates Screen Negative (NEGATIVE) Urine Barbiturates Screen Negative (NEGATIVE) Urine Phencyclidine (PCP) Level Negative (NEGATIVE) Urine Amphetamines Screen Negative (NEGATIVE) Urine Benzodiazepines Screen Negative (NEGATIVE) Urine Cocaine Screen Positive (NEGATIVE) Urine Marijuana (THC) Screen Negative (NEGATIVE) Activated Partial Thromboplast Time 38.0 SECONDS (23.2-39.4) White Blood Count 8.1 X10e3/UL (4.5-11.0) Red Blood Count 4.39 X10e6/UL (4.5-5.9) Hemoglobin 13.2 G/DL (13.5-17.5) Hematocrit 39.6 % (41.0-53.0) Mean Corpuscular Volume 90.2 FL (80.0-100.0) Mean Corpuscular Hemoglobin 30.1 PG (26.0-34.0) Mean Corpuscular Hemoglobin Concent 33.3 G/DL (31.0-37.0) Red Cell Distribution Width 13.3 % (11.5-15.5) Platelet Count 297 X10e3/UL (150-400) Mean Platelet Volume 9.5 FL (7.4-11.0) Neutrophils (%) (Auto) 48.7 % (40.0-70.0) Lymphocytes (%) (Auto) 42.3 % (22.2-43.6) Monocytes (%) (Auto) 6.0 % (0.0-7.3) Eosinophils (%) (Auto) 2.1 % (0.0-4.1) Basophils (%) (Auto) 0.7 % (0.0-1.8) Neutrophils # (Auto) 3.9 X10e3/UL (1.8-7.7) Lymphocytes # (Auto) 3.4 X10e3/UL (1.0-5.0) Monocytes # (Auto) 0.5 X10e3/UL (0.0-0.8) Eosinophils # (Auto) 0.2 X10e3/UL (0.0-0.5) Basophils # (Auto) 0.1 X10e3/UL (0.0-0.2) Nucleated Red Blood Cells % 0.0 % (0.0-0.0) Nucleated Red Blood Cells # 0.0 X10e3/UL (0.0-0.0) Prothrombin Time 13.4 SECONDS (12.3-15.0) INR International Normalized Ratio 0.99 RATIO (0.85-1.14) Sodium Level 137 mmol/L (136-145) Potassium Level 4.4 mmol/L (3.5-5.1) Chloride Level 105 mmol/L (98-107) Carbon Dioxide Level 25 mmol/L (22-29) Anion Gap 11.4 (5-15) Blood Urea Nitrogen 10 mg/dL (8.9-20.6) Creatinine 0.7 mg/dL (0.72-1.25) Glomerular Filtration Rate 131 mL/min (>60) BUN/Creatinine Ratio 14 (10-18) Glucose Level 189 mg/dL (70-110) Calcium Level 8.4 mg/dl (8.4-10.2) Phosphorus Level 3.5 mg/dL (2.3-4.7) Magnesium Level 2.0 mg/dL (1.6-2.6) Total Bilirubin 0.2 mg/dl (0.2-1.2) Aspartate Amino Transf (AST/SGOT) 16 U/L (15-37) Alanine Aminotransferase (ALT/SGPT) 12 U/L (0-55) Alkaline Phosphatase 96 U/L (50-136) Troponin I 0.083 ng/mL (0-0.033) Total Protein 5.8 gm/dL (6.4-8.3) Albumin 2.9 gm/dl (3.5-5.0) Globulin 2.9 gm/dL (2.0-3.5) Albumin/Globulin Ratio 1.0 (1.0-2.2) Test 03/03/25 06:12 Glucometer 201 MG/DL (70-105) RADIOLOGY ECHO came back showing moderate reduction of left left ventricular systolic function ejection fraction 40-45% with a global wall hypokinesis ASSESSMENT: (1) NSTEMI (non-ST elevated myocardial infarction) ICD Codes: I21.4 - Non-ST elevation (NSTEMI) myocardial infarction (2) Hypertension ICD Codes: I10 - Essential (primary) hypertension (3) Diabetes mellitus type 2, uncontrolled ICD Codes: E11.65 - Type 2 diabetes mellitus with hyperglycemia (4) Dyslipidemia ICD Codes: E78.5 - Hyperlipidemia, unspecified PLAN: Patient will be taken to the labor gang supervisor today. Further recommendations depend on the test results and clinical course with the patient. Rest per primary team MICHAELA VERAS MD CARDIO Mar 03, 2025 07:25 Electronically Signed by: MICHAELA VERAS MD CARDIO 2nd Electronically Signed by: Signed Date/Time: 03/03/25 07 2nd Signed Date/Time: Signed Label: <<Signature on File>> 2nd Signed Label: Discharge Summary Note Author SONU DOWNS [facility] Note Date/Time March 03, 2025 4:1 8pm [facility] [address] [place], [place] [address] PD DISCHARGE SUMMARY Report Status: Signed PT: RAKESH MELTON : 1980 ADM: 03/02/25 ACT: [id number] AGE: 44 SVC: TELEMETRY MR: [id number] FC: CT DISCH DATE: 03/03/25 LOC: T2IMT [facility]#: [id number] STA: DIS IN DC SUMMARY/DC PROGRESS NOTE DC SUMMARY/DC PROGRESS NOTE ADMISSION DATE/TIME: Mar 02, 2025 at 18:52 DISCHARGE DATE: 03/03/25 ADMISSION DIAGNOSIS: Coronary artery disease Non-STEMI Hypertension Uncontrolled diabetes Hyperlipidemia Noncompliance Cocaine abuse DISCHARGE DIAGNOSIS: 3 vessel Coronary artery disease Non-STEMI Hypertension Uncontrolled diabetes Hyperlipidemia Noncompliance Cocaine abuse HOSPITAL COURSE: This is year old patient who presented to the emergency department for complaintof chest pain, reportedly patient was seen in [place] previously when he hadan angiogram done that showed three-vessel disease, however no intervention was done as patient [place] emergency department she was noted to have a non-STEMI, elevated troponin, EKG showed no changes, Cardiology was consulted who proceeded to take the patient to labor gang supervisor, with findings compatible with severe three-vessel CAD for which transfering patient to tertiary facility for CABG evaluation by Cardiothoracic surgeon is warranted, 2D echo to assess LV/RV/valvular function showed LVEF 60-65% all medication reconciled, CONSULTS: Cardiology PROCEDURES: left coronary angiogram DISCHARGE MEDICATIONS: Active Scripts Active No Active Prescriptions or Reported Medications SONU DOWNS MD Mar 03, 2025 16:18 Electronically Signed by: SONU DOWNS MD 2nd Electronically Signed by: Signed Date/Time: 03/03/25 1618 2nd Signed Date/Time: Signed Label: <<Signature on File>> 2nd Signed Label: Progress Note Author HOLGER ROCHA [facility] Note Date/Time March 02, 2025 6:40 pm [facility] [address] [place], [place] [id number] [facility] ER PHYSICIAN DOCUMENTATION Report Status: Signed PT: RAKESH MELTON : 1980 ADM: ACT: [id number] AGE: 44 SVC DATE: 03/02/25 MR: [id number] FC: CT DISCH DATE: LOC: ER RPT#: [id number] STA: REG ER ED NOTE History of Present Illness Chief Complaint: MEDICAL EVAL S/P HEART CATH 8 DAYS AGO,DENIES ANY PAIN AT THISTIME (HOLGER ROCHA NP) Stated Complaint: MEDICAL EVAL Time Seen by MD: 16:17 Time Seen by Midlevel: 16:17 Dictation: 44-year-old male with chief complaint of having history of coronary disease and diabetes mellitus type 2 with a history of recent chest pain and admitted to a hospital in [facility]. The patient was working with a [employer] and while at work he developed chest pain. The patient ended up at [facility] and had a catheterization done. The patient was found to have a triple-vessel disease. The patient was placed on aspirin and Plavix but has not filled any of his medications. The patient is here for medical clearance to go back to work. The patient denies having any chest pain or shortness of breath. The patient denies having any nausea, vomiting or associated diaphoresis at this time. (HOLGER ROCHA NP) Time Seen by MD: 15:59 (OCTAVIANO CEDILLO MD *ER*) Allergies: Coded Allergies: No Known Allergies (Unverified Allergy, Unknown, 03/02/25) Home Meds Active Scripts Mupirocin Calcium (MUPIROCIN) 15 Gm Cream..g., 1 APPLICATIO NS BID for 10 Days Prov:MARLO WILLARD 02/24/17 Chlorhexidine Gluconate (BETASEPT) 3,780 Ml Liquid, 1 APPLICATIO TOP BID for 10 Days Prov:MARLO WILLARD 02/24/17 Sulfameth-Trim Ds 800 Mg-160 Mg* (BACTRIM DS 800 MG-160 MG*) 160 Mg/800 Mg Tablet, 1 TAB PO BID for 10 Days, TAB Prov:MARLO WILLARD 02/24/17 Metformin Hcl Tablet (GLUCOPHAGE TABLET) 500 Mg Tablet, 1000 MG PO BIDWM for 30 Days, TABLET *TAKE WITH FOOD OR MILK (IF NOT LACTOSE INTOLERANT). Prov:MARLO WILLARD 02/24/17 Pantoprazole Sodium (PANTOPRAZOLE SODIUM) 40 Mg Tablet.dr, 40 MG PO DAILY for 30Days Prov:IKE SOLIZ MD 09/16/16 Insulin Detemir (Levemir Flextouch) 100 Unit/1 Ml Insuln.pen, 20 UNIT SQ BID for30 Days Prov:IKE SOLIZ MD 09/16/16 Glimepiride 1 Mg Tablet* (AMARyl 1 MG TABLET*) 1 Mg Tab, 2 MG PO DAILY WITH A MEAL for 30 Days, TAB Prov:IKE SOLIZ MD 09/16/16 Tramadol/Apap 37.5 Mg-325 Mg Tablet* (ULTRACET 37.5 MG-325 MG TABLET*) 1 Each Tablet, 2 TAB PO EVERY 4 TO 6 HOURS, #20 TAB Prov:MARLO WILLARD 08/26/16 Sulfameth-Trim Ds 800 Mg-160 Mg* (BACTRIM DS 800 MG-160 MG*) 160 Mg/800 Mg Tablet, 1 TAB PO BID, #14 TAB Prov:MARLO WILLARD 08/26/16 Cephalexin Monohydrate Capsule* (KEFLEX CAPSULE*) 500 Mg Capsule, 500 MG PO BID for 14 Days, CAP Prov:MARLO WILLARD 08/26/16 Past Medical History Past Medical History: Obesity, Diabetes, Hypertension, Dyslipidemia, CAD, Cardiac Surgical History Other: HEART CATH, PSYCH History: no pertinent psych hx Family History: Negative Social History: Negative, Lives with family RN Note Reviewed/Agreed w/PFSH: Yes Review of Systems: was completed (HOLGER ROCHA NP) Review of System Dictation Review of System Constitutional: no chills, no fever, no weakness, no diaphoresis, no malaise, positive request of medical clearance to go back to work EENT: no eye pain, no blurred vision, no tearing, no double vision, no ear pain,no ear discharged, no nose pain, no nasal congestion, no throat pain, no throat swelling, no mouth pain Respiratory: no cough, no orthopnea, no SOB, no stridor, no wheezing Cardiovascular: no chest pain, no edema, no palpitations, no syncope Gastrointestinal/Abdominal: no abdominal pain, no constipation, no diarrhea, no nausea, no vomiting Genitourinary: no abnormal discharge, no dysuria, no frequent urination, no hematuria Musculoskeletal: no back pain, no gout, no joint pain, no joint swelling, no muscle pain, no muscle stiffness, no neck pain Skin: no change in color, no change in hair/nails, no dryness, no lesion, no lumps, no rash Neurological/Psych: no anxiety, not depressed, no emotional problem, no headache, no numbness, no paresthesia, no pre-existing deficit, no history of seizures, no tingling sensation, no tremors, no weakness Hematologic/Lymphatic: not anemic, no history of blood clots, no apparent bleeding, no bruising, glands not swollen Immunological: no HIV/AIDS, No history of any transplant All Other Systems Negative Except as Noted. Triage Note Reviewed. (HOLGER ROCHA NP) Initial Vital Sign VS Vital Signs Date Time Temp Pulse Resp B/P (MAP) Pulse Ox O2 Delivery O2 Flow Rate FiO2 03/02/25 16:05 98.2 84 18 124/76 98 Room Air* 0 21 (OCTAVIANO CEDILLO MD *ER*) Exam Dictation GENERAL: The patient appeared well nourished and normally developed. VITALS: Vital signs as documented. HEAD: Head exam is unremarkable. EYES: No scleral icterus or corneal arcus noted. NECK: Neck is without jugular venous distension, thyromegaly, or carotid bruits.Carotid upstrokes are brisk bilaterally. LUNGS:Lungs are clear to auscultation and percussion. HEART:Cardiac exam reveals the PMI to be normally sized and situated. Rhythm is regular. First and second heart sounds normal. No murmurs, rubs or gallops. ABDOMEN: Abdominal exam reveals normal bowel sounds, no masses, no organomegaly and no aortic enlargement. EXTREMITIES: Extremities are nonedematous and both femoral and pedal pulses are normal. NEURO: Cranial nerve 2 to 12 intact. Negative meningeal signs. All Other Systems Negative Except as Noted. Triage Note Reviewed. (HOLGER ROCHA NP) Results (Laboratory/Radiology) Laboratory/Radiology Laboratory Tests Test 03/02/25 16:41 White Blood Count 7.2 X10e3/UL (4.5-11.0) Red Blood Count 4.14 X10e6/UL (4.5-5.9) L Hemoglobin 12.5 G/DL (13.5-17.5) L Hematocrit 36.7 % (41.0-53.0) L Mean Corpuscular Volume 88.6 FL (80.0-100.0) Mean Corpuscular Hemoglobin 30.2 PG (26.0-34.0) Mean Corpuscular Hemoglobin Concent 34.1 G/DL (31.0-37.0) Red Cell Distribution Width 13.2 % (11.5-15.5) Platelet Count 296 X10e3/UL (150-400) Mean Platelet Volume 9.2 FL (7.4-11.0) Neutrophils (%) (Auto) 53.8 % (40.0-70.0) Lymphocytes (%) (Auto) 36.4 % (22.2-43.6) Monocytes (%) (Auto) 6.8 % (0.0-7.3) Eosinophils (%) (Auto) 1.9 % (0.0-4.1) Basophils (%) (Auto) 0.7 % (0.0-1.8) Neutrophils # (Auto) 3.9 X10e3/UL (1.8-7.7) Lymphocytes # (Auto) 2.6 X10e3/UL (1.0-5.0) Monocytes # (Auto) 0.5 X10e3/UL (0.0-0.8) Eosinophils # (Auto) 0.1 X10e3/UL (0.0-0.5) Basophils # (Auto) 0.1 X10e3/UL (0.0-0.2) Nucleated Red Blood Cells % 0.0 % (0.0-0.0) Nucleated Red Blood Cells # 0.0 X10e3/UL (0.0-0.0) Prothrombin Time 13.7 SECONDS (12.3-15.0) INR International Normalized Ratio 1.02 RATIO (0.85-1.14) Activated Partial Thromboplast Time 28.3 SECONDS (23.2-39.4) Sodium Level 134 mmol/L (136-145) L Potassium Level 4.1 mmol/L (3.5-5.1) Chloride Level 101 mmol/L (98-107) Carbon Dioxide Level 26 mmol/L (22-29) Anion Gap 11.1 (5-15) Blood Urea Nitrogen 10 mg/dL (8.9-20.6) Creatinine 0.8 mg/dL (0.72-1.25) Glomerular Filtration Rate 113 mL/min (>60) BUN/Creatinine Ratio 13 (10-18) Glucose Level 331 mg/dL (70-110) H Calcium Level 8.2 mg/dl (8.4-10.2) L Troponin I 0.055 ng/mL (0-0.033) H B-Type Natriuretic Peptide 212 pg/mL (<100) H (OCTAVIANO CEDILLO MD *ER*) Laboratory/Radiology Chest x-ray with no acute pulmonary edema or infiltrates. EKG with sinus rhythm. Heart rate of 79 beats per minute. OH interval 119 milliseconds. QRS duration [address] depressions in the least two three AVF and lateral leads. (HOLGER ROCHA NP) Labs Reviewed?: Yes (HOLGER ROCHA NP) ED Course and MRM ED Course and MRM Orders Procedure Category Date Status Time Vital Signs NURSING 03/02/25 Transmitted 16:21 Continuous Cardiac ED.OE 03/02/25 In Process Monitoring 16:21 Monitor Pulse ED.OE 03/02/25 In Process Oximetry 16:21 Saline Lock ED.OE 03/02/25 In Process Maintenance 16:21 Complete Blood Count LAB 03/02/25 Complete And Diff 16:21 B-PEARL MAKER LAB 03/02/25 Complete 16:21 Cardiac Enzyme LAB 03/02/25 Complete (Troponin) 16:21 Prothrombin Time-Inr LAB 03/02/25 Complete 16:21 Part Thromboplastin LAB 03/02/25 Complete Time(Aptt) 16:21 Chest Portable Cxr Exp RAD 03/02/25 Taken 16:21 Ekg 12 Lead CARDIO 03/02/25 Complete 16:21 Panel B (Chem7, Sma7, LAB 03/02/25 Complete Bmp,Acp) 16:21 Aspirin 325 Mg Tablet PHA 03/02/25 Complete (Aspirin 325 Mg Ta 17:24 Clopidogrel Bisulfate PHA 03/02/25 Complete (Plavix) 17:24 Insulin Human Regular PHA 03/02/25 Complete (Humulin-R Vial) 17:32 Current Medications Medications (Trade) Dose Ordered Sig/Marva Route PRN Reason Start Time Stop Time Status Last Admin Dose Admin Aspirin (Aspirin 325 Mg Tablet) 325 mg ONCE STAT PO 03/02/25 17:24 03/02/25 17:32 DC Clopidogrel Bisulfate (Plavix) 75 mg ONCE STAT PO 03/02/25 17:24 03/02/25 17:32 DC Insulin Human Regular (HumuLIN-R VIAL) 5 unit ONCE STAT SQ 03/02/25 17:32 03/02/25 17:33 DC Miscellaneous Information (Verify Current Admission Allergies) 1 unit Q5MIN MISCELLANE 03/02/25 17:30 03/03/25 17:29 UNV Vital Signs Date Time Temp Pulse Resp B/P (MAP) Pulse Ox O2 Delivery O2 Flow Rate FiO2 03/02/25 16:05 98.2 84 18 124/76 98 Room Air* 0 21 (OCTAVIANO CEDILLO MD *ER*) DX & DISP Disposition: Inpatient Decision to Admit Date: Mar 02, 2025 Decision to Admit Time: 17:37 (HOLGER ROCHA NP) Departure Impression: Primary Impression: Diabetes mellitus type 2, uncontrolled Qualified Codes: E11.65 - Type 2 diabetes mellitus with hyperglycemia Additional Impressions: Coronary artery disease Qualified Codes: I25.10 - Atherosclerotic heart disease of [place] coronary artery without angina pectoris Noncompliance Elevated troponin I level Dyslipidemia Condition: Stable Additional Instructions: Admission to hospital *ATTESTATION-AGREED W/MIDLEVEL I reviewed the documents, agree with documentations, medical decision making, and treatment plan (OCTAVIANO CEDILLO MD *ER*) HOLGER ROCHA NP Mar 02, 2025 17:28 OCTAVIANO CEDILLO MD *ER* Mar 02, 2025 17:51 Signed by: HOLGER ROCHA NP Date/Time: 03/02/251740 <<Signature on File>> Signed by: OCTAVIANO CEDILLO MD *ER* Date/Time: 03/02/251750 <<Signature on File>> Signed by: Date/Time: Signed by: Date/Time: ADDENDUM Addendum: OCTAVIANO CEDILLO MD *ER* on 03/02/25 @ 18:02 The patient is a 44-year-old male who was not in [place] working last week and sustained an acute HI was seen at [facility] the next day went to the labor gang supervisor apparently he had three occluded vessels very likely he had stents then he was discharged on Plavix and aspirin he has been not he has been has been has been picked up his medications yet but he said that they are in the pharmacy periods he denies having any chest pain since the event complains of mild shortness a breath. Doppler he is still smoking in he smokes K2 which he has been marijuana he has been there with the in his in the mid up On exam patient is alert oriented with no signs of distress. The lungs are clear ventilated. Heart rate is regular without murmurs. Repeat troponin has been done in his if it is same or coming down the patient will be discharged to continue with the same medications. Addend Signed by: OCTAVIANO CEDILLO MD Date/Time: 03/02/251802 <<Signature on File>> Addend Signed by: Date/Time: Addend Signed by: Date/Time: Addend Signed by: Date/Time: ADDENDUM Addendum: OCTAVIANO CEDILLO MD *ER* on 03/02/25 @ 18:37 The troponin is trending up then for the patient will be admitted in he will be started on a heparin drip. He was already given Plavix and aspirin. Additional diagnosis: Non-STEMI. Noncompliant with a anti-platelet therapy oneweek status post acute HI Addend Signed by: OCTAVIANO CEDILLO MD Date/Time: 03/02/25 184 <<Signature on File>> Addend Signed by: Date/Time: Addend Signed by: Date/Time: Addend Signed by: Date/Time:
[2025-03-06 16:11] LABS: ABG BASE EXCESS 1.2 mmol/L (-2.0-3.0); ABG HCO3 25.4 mmol/L (21.0-28.0); ABG OXYGEN SATURATION 98.0 % (94.0-98.0); ABG PCO2 39 mmHg (35-48); ABG PH 7.434 (7.350-7.450); CARBON MONOXIDE 0.3 % (0.5-1.5); DEVICE COMMENT AL, JULIE,RN; PO2, ARTERIAL BG 149.1 mmHg (83.0-108.0); TEMPERATURE, CELSIUS BG 37.0 CELSIUS (35.5-37.0); VENT MODE, BG SIMV, PS10 (ROOM AIR)
[2025-03-06 17:25] LABS: ABG BASE EXCESS 2.4 mmol/L (-2.0-3.0); ABG HCO3 27.3 mmol/L (21.0-28.0); ABG OXYGEN SATURATION 97.6 % (94.0-98.0); ABG PCO2 43 mmHg (35-48); ABG PH 7.416 (7.350-7.450); CARBON MONOXIDE 0.3 % (0.5-1.5); DEVICE COMMENT AL,JULIE,RN; PO2, ARTERIAL BG 132.6 mmHg (83.0-108.0); TEMPERATURE, CELSIUS BG 37.0 CELSIUS (35.5-37.0); VENT MODE, BG SIMV, PS10 (ROOM AIR)
--- NOTE | 2025-03-06 18:32 | CONS ---
[facility] CONSULTATION NOTE Date Patient Seen: Mar 06, 2025 Time of Visit: 18:11 Supervising Physician: Silvestre Del Cid MD Reason for Consultation: CCM post CABG Primary Care Physician: Claudia Referral Outpatient Specialists: [ ] Inpatient Consults: Dr Van, Dr Griffin, Dr Galindo Attending: [employer] Team PROBLEM LIST: CABG X 3 (PARK to LAD, RSVG to the 1st obtuse marginal coronary artery, RSVG from the aorta to the PDA) on 03/06/25 NSTEMI, POA Postop hypoxic respiratory failure as expected intubated Postop leukocytosis Hypomagnesemia High Risk for Withdrawals LVEF of 55% on 03/04/25 Status post coronary angiogram/LHC with findings of severe multivessel coronary artery disease, POA History of tobacco use disorder, POA History of polysubstance abuse with cocaine and synthetic marijuana, POA Uncontrolled type 2 diabetes mellitus, POA Hypertension, POA Hyperlipidemia, POA HPI: This is a 44-year-old male with a past medical history of type 2 diabetes mellitus, history of polysubstance abuse with cocaine and K2 synthetic marijuana, and tobacco use disorder presented as a transfer to [facility] from [facility]. Per Medical records patient works out of town [place] and experienced chest pain and week ago he underwent coronary angiography and cardiac catheterization at that point. Apparently he was unsure about the treatment that was offered and [place] and placenta yesterday to [facility] requesting medical clearance before he could return back to work. On presentation to [facility] patient was noted to have an elevated troponin which was mildly elevated at 0.055 with a BNP of 212 hemoglobin of 12.5 and creatinine of 0.8. He received aspirin, Plavix and was initiated on heparin drip and seen by Cardiology. He underwent cardiac catheterization on 03/03/25 and was found to have severe multivessel CAD. He then was transferred to [facility] for further evaluation by CV surgery for possible coronary artery bypass grafting. Today patient underwent off pump CABG X 3 (PARK to LAD, RSVG to the 1st obtuse marginal coronary artery, RSVG from the aorta to the PDA). We are consulted for critical care management post CABG. Patient was seen Post-Op in the ICU still intubated but waking up. Ventilator settings of SIMV mode with tidal volume of 500 respiratory rate of 10 FiO2 of 60% and PEEP of 5. Current drips with Insulin and Amicar. As per RN he was initially on nitro postop due to hypertension but already weaned off. Chest tube with a total drained of 200 mL on the atrium as per RN recently at 140 mL in the last hour. Hemoglobin 10.7 on ABG. White count elevated at 15.5 as expected post surgery. Chemistries shows a sodium of 149 chloride of 112 glucose 150 mg/dL hemoglobin A1c of 10.3 total calcium of 11.6 magnesium of 1.40 covered per protocol. 2D echo from 03/04/25 shows LVEF is 55%, baso mild in the apical and inferior hypokinesia. There is a trace of mitral valve regurgitation noted. On chest x-ray no acute cardiopulmonary findings. Stable right bibasilar airspace disease. ET tube in good position chest tube in place no pneumothorax tiny right pleural effusion. On behalf of [facility] thank you for given us the opportunity to participate in the care of this patient. PAST MEDICAL HX: see above PAST SURGICAL HX: noncontributory SOCIAL HISTORY: No tobacco, ETOH, or illicit drug use Coded Allergies: No Known Drug Allergies (Unverified Allergy, Unknown, 03/03/25) REVIEW OF SYSTEMS: Unable to perform due to patient's intubated and post CABG. PHYSICAL EXAM: GENERAL: Awake to voice, intubated post CABG. HEENT: EOMI, Sclera non icteric, moist mucosa NECK: Supple, no JVD, trachea midline. RT IJ CVC LUNGS: Rhonchi to right lower lobes. . No wheezes. chest tube HEART: Regular rate and rhythm. Normal S1 and S2, without murmurs ABD: Abdomen soft, nontender. Bowel sounds present EXT: No clubbing cyanosis or edema, Venkat hosed to RLE , juliano wrap to left leg. NEURO: awake, intubated no focal weakness. Vital Signs (last 8hr) Date Time Temp Pulse Resp B/P (MAP) Pulse Ox O2 Delivery O2 Flow Rate FiO2 03/06/25 17:24 40 03/06/25 17:00 90 13 121/62 (81) 100 03/06/25 16:56 86 13 119/60 (79) 100 114/73 (87) 03/06/25 16:45 88 13 116/58 (77) 100 03/06/25 16:41 90 13 124/62 (82) 100 117/79 (92) 03/06/25 16:30 91 13 141/66 (91) 100 03/06/25 16:15 93 136/66 (89) 100 03/06/25 16:14 100 Ventilator+ 40 03/06/25 16:11 88 130/63 (85) 100 113/75 (88) 03/06/25 16:00 91 8 128/62 (84) 100 03/06/25 16:00 98.1 Ventilator 40 03/06/25 16:00 40 03/06/25 15:45 90 10 124/62 (82) 100 03/06/25 15:42 89 10 116/56 (76) 100 109/71 (84) 03/06/25 15:30 93 12 132/63 (86) 100 03/06/25 15:27 95 12 129/60 (83) 100 112/72 (85) 03/06/25 15:15 94 12 130/61 (84) 100 03/06/25 15:11 93 12 125/59 (81) 100 105/74 (84) 03/06/25 15:00 95 12 124/59 (80) 100 03/06/25 15:00 40 03/06/25 14:58 94 40 03/06/25 14:56 92 12 118/55 (76) 100 101/66 (78) 03/06/25 14:45 95 12 111/53 (72) 100 03/06/25 14:41 92 10 114/53 (73) 100 98/65 (76) 03/06/25 14:30 92 12 121/55 (77) 100 03/06/25 14:27 93 117/54 (75) 100 99/65 (76) 03/06/25 14:25 92 6 119/56 (77) 100 03/06/25 14:11 95 118/58 (78) 100 105/72 (83) 03/06/25 14:10 93 115/55 (75) 100 03/06/25 14:00 40 03/06/25 13:56 96 125/60 (81) 100 112/76 (88) 03/06/25 13:55 97 123/58 (79) 100 03/06/25 13:50 40 03/06/25 13:41 95 139/65 (89) 100 117/77 (90) 03/06/25 13:40 96 135/64 (87) 100 03/06/25 13:27 93 5 228/109 (148) 100 142/82 (102) 03/06/25 13:25 96 14 190/78 (115) 100 03/06/25 13:16 230/89 03/06/25 13:11 109 36 115/59 (77) 100 99/69 (79) 03/06/25 13:10 108 36 129/67 (87) 100 03/06/25 13:00 100 Ventilator+ 60 03/06/25 13:00 60 03/06/25 13:00 98.1 Ventilator 60 03/06/25 12:57 135 21 185/84 (117) 100 138/92 (107) 03/06/25 12:55 112 13 241/91 (141) 100 03/06/25 12:55 60 03/06/25 12:52 91 100 LABS: Hematology Labs: Test 03/06/25 12:56 Range/Units White Blood Count 15.5 #H 4.8-10.8 K/uL Red Blood Count 3.20 #L 4.50-6.20 MIL/uL Hemoglobin 9.9 #L 14.0-18.0 g/dL Hematocrit 28.6 #L 42-54 % Mean Corpuscular Volume 89.4 79-99 fL Mean Corpuscular Hemoglobin 30.9 27.0-33.0 pg Mean Corpuscular Hemoglobin Concent 34.6 32.0-36.0 g/dL Red Cell Distribution Width 13.6 11.0-15.5 % Platelet Count 198 # 130-400 K/uL Mean Platelet Volume 9.5 7.5-10.5 fL Nucleated Red Blood Cells 0.0 0.0-0.19 % Chemistry Labs: Test 03/06/25 12:56 03/06/25 05:28 03/06/25 04:26 Range/Units Sodium Level 149 H 136-145 mmol/L Potassium Level 3.8 3.5-5.1 mmol/L Chloride Level 112 H 101-111 mmol/L Carbon Dioxide Level 29 21-32 mmol/L Blood Urea Nitrogen 10 7-18 mg/dL Creatinine 0.6 0.5-1.3 mg/dL Glomerular Filtration Rate Calc 124 >90 mL/min Random Glucose 150 H 70-105 mg/dL Total Calcium 11.6 H 8.5-10.1 mg/dL Phosphorus Level 4.2 2.5-4.9 mg/dL Magnesium Level 1.40 L 1.80-2.40 mg/dL Whole Blood Glucose 95 # 70-110 MG/DL Hemoglobin A1c 10.3 H 4.0-6.0 % Estimated Average Glucose (eAG) 249 H 70-126 mg/dL Total Bilirubin 0.3 0.2-1.0 mg/dL Aspartate Amino Transf (AST/SGOT) 25 10-37 U/L Alanine Aminotransferase (ALT/SGPT) 21 12-78 U/L Alkaline Phosphatase 99 50-136 U/L Total Protein 6.3 6.0-8.3 g/dL Albumin 3.0 L 3.5-5.0 g/dL Triglycerides Level 84 30-200 mg/dL Cholesterol Level 130 <200 mg/dL LDL Cholesterol 62 0-99 mg/dL HDL Cholesterol 60 29-71 mg/dL Coagulation Labs: Test 03/06/25 12:56 Range/Units Prothrombin Time 12.6 H 9.6-11.6 SEC Prothromb Time International Ratio 1.21 H 0.85-1.15 Activated Partial Thromboplast Time 24.8 L 26.3-35.5 SEC Fibrinogen 196 180-350 mg/dL DIAGNOSTICS / RADIOLOGY RESULTS: [[facility] [address] [place] [address] IMAGING REPORT Signed PATIENT: LUMA JOY MR#: [id number] : 1980 SEX: M AGE: 44 LOCATION: [facility] ORDER 41 STATUS: ADM IN REPORT#: [id number] SERVICE 39 REASON: NSTEMI, heart clinic to read ORDERING PHYSICIAN: VERENICE FERRIS MD PROCEDURE: ECHO CMP - ECHO 2-D COMPLETE APPROVED REPORT EXAM: Two-dimensional and M-mode echocardiogram with Doppler and color Doppler. INDICATION ICD: NSTEMI 2D Dimensions RVDd 3.5 cm LVEF(%) 14.9 (>50%) LVED Vol(simp.) 152.4 mL IVSd 1.0 (0.7-1.1cm) FS(%) 7 % LVES Vol(simp.) 98.2 mL LVDd 5.3 (3.8-5.6cm) LA (2D) 3.1 (1.6-4.0cm) LVEF(%, simp.) 36 % PWd 0.9 (0.7-1.1cm) Ao Root(2D) 3.2 (2.0-3.7cm) LA ESV INDEX (BP) 33.52 mL/m2 IVSs 1.3 cm LVOT diam 2.1 (1.8-2.4cm) LVDs 4.9 (2.5-4.0cm) PWs 0.9 cm Deformation Strain Apical 4 -14.7 % Apical 2 -12.7 % Apical 3 -11.1 % Global Strain -12.8 % M-Mode Dimensions EPSS 1.2 cm LA (MM) 3.4 (1.6-4.0cm) Ao Root(MM) 3.1 (2.0-3.7cm) Aortic Valve AoV Vmax 1.5 m/s Ao Peak GR 8.8 mmHg LVOT Vmax 0.8 m/s AoV VTI 0.3 m Ao Mean GR 4.4 mmHg LVOT VTI 0.17 m MEL (VMAX) 1.83 cm2 MEL (VTI) 2.0 cm2 Mitral Valve MV E Vmax 87.3 cm/s DECEL Time 163 ms MV A Vmax 61.7 cm/s E/A ratio 1.4 TDI E/E' Medial 17.7 E/E' Lateral 8.8 Medial E' Peak V 4.92 cm/s Lateral E' Peak V 9.88 cm/s Pulmonary Valve PV Vmax 1.0 m/s PV VTI 0.21 m PV Mean GR 2.2 mmHg PV Peak GR 3.8 mmHg Tricuspid Valve RAP (EST) 8 mmHg RVSP 8.0 mmHg Left Ventricle The left ventricle is normal size. Mild spontaneous contrast noted Basal, mid and apical inferior hypokinesia. There is mild to moderate assymetrical left ventricular wall thickness. LVEF is 55%. The left ventricular diastolic function is normal. Right Ventricle The right ventricle is normal size. The right ventricular systolic function is normal. Atria The left atrium size is normal. The right atrium size is normal. Aortic Valve The aortic valve is thickened and opens well. No aortic regurgitation is present. There is no aortic valvular stenosis. Mitral Valve The mitral valve is mildly thickened and opens well. There is trace of mitral valve regurgitation noted. There is no mitral valve stenosis. Tricuspid Valve The tricuspid valve is normal in structure. There is trace of tricuspid valve regurgitation noted. Pulmonic Valve The pulmonary valve is normal in structure. There is no pulmonic valvular regurgitation. Great Vessels The aortic root is normal in size. The IVC is normal in size and collapses <50% with inspiration. Pericardium There is no pericardial effusion. Other Information Quality : Adequate Conclusion LVEF is 55%. Basal, mid and apical inferior hypokinesia. There is trace of mitral valve regurgitation noted. DICTATED BY: MIGNON GALINDO MD DATE: 03/04/25 1023 ELECTRONICALLY SIGNED BY: MIGNON GALINDO MD DATE: 03/05/25 0919 ] [address] [address] IMAGING REPORT Signed PATIENT: LUMA JOY MR#: [id number] : 1980 SEX: M AGE: 44 LOCATION: 2CV ORDER 1003 STATUS: ADM IN REPORT#: [id number] SERVICE 1200 REASON: s/p CABG ORDERING PHYSICIAN: DILCIA ROQUE MD PROCEDURE: CXR1VW - CHEST 1VW EXAM: CR Chest, 2 View. CLINICAL HISTORY: s/p CABG COMPARISON: Radiograph dated from earlier today FINDINGS: Endotracheal tube terminates above the [place]. [place]orge catheter and chest tubes are unchanged in positions. Relatively unchanged right basilar airspace disease. No pleural effusion or pneumothorax. Interval CABG. Heart size is stable. Pulmonary vessels and interstitial markings are within normal limits. IMPRESSION: 1. No acute cardiopulmonary findings. 2. Stable right basilar airspace disease. /[place] DICTATED BY: ASUNCION GUILLAUME Jr., MD DATE: 03/06/251525 ELECTRONICALLY SIGNED BY: ASUNCION GUILLAUME Jr., MD DATE: 03/06/2515[address] surgeon recommendations Follow cardiology recommendations Multimodal pain management Monitoring H&H Monitor chest tube output 200ml Chest x-ray in the morning Start SBT's as tolerated Pending 2nd 2D echo results Monitor ABGs Transfuse if absolutely necessary to keep hemoglobin above 8 Maintain O2 sats greater than 92% Incentive spirometry once extubated Glycemic control with goal of 80-180 Referral for cardiac rehabilitation Speech to eval once patient is extubated monitor electrolytes: K Goal of 4 Magnesium goal of 2 Replace accordingly NEURO: Minimize central acting medications as possible. Fall Precautions. Well lighted room through the day and minimize interruptions through the night to prevent acute delirium. PULMONARY: Supplemental 02 as needed Titrate Fio2 to keep Spo2 > or = 90% DuoNebs and CPT as needed IS hourly while awake for pulmonary hygiene Out of bed to chair as tolerated CARDIOVASCULAR: Follow hemodynamics. Titrate vasopressor to keep MAP >65 or systolic blood pressure >95mmHg DRIPS: Insulin epi LINES: RT IJ CVC alex chest tube FC GI & NUTRITION: Continue nutritional support Aspirations precautions Prokinetic agents and laxatives as needed KIDNEYS & ELECTROLYTES: Strict monitoring of intake and output Daily weights Avoid nephrotoxic agents Monitor electrolytes and replace as needed Goal urine output of 30mL/hr or 0.5mL/kg/hr Urine output: [ 660 m] Fluid Balance: [ ] ENDOCRINE: Maintain blood glucose between 100-180 at all times. Insulin sliding scale for blood glucose management INFECTIOUS DISEASE: Trend temperature. Suazo-culture if febrile. Micro: [ ] MRSA negative Antibiotics: [ ] ancef HEMATOLOGY & COAGULATION: Monitor H&H. Keep Hgb > 7 Transfuse 1 unit of PRBC for Hgb < 7 Transfuse 1 pack of platelets of platelets < 20, 000 Watch for any signs and symptoms of bleeding SKIN: Pressure ulcer prevention per facility protocol Rehab: PT/OT Prophylaxis: GI: famotidine DVT: [Tedhose per CV surgery ] Code Status: Full Resuscitation Disposition: [ ICU ] Other: Total patient care time exceeds 35 minutes excluding all procedures. Case was discussed and seen with my supervising physician. The above plan was formulated and agreed upon. [facility] Mar 06, 2025 18:32
[2025-03-06 18:36] LABS: ABG BASE EXCESS 2.0 mmol/L (-2.0-3.0); ABG HCO3 26.8 mmol/L (21.0-28.0); ABG OXYGEN SATURATION 98.0 % (94.0-98.0); ABG PCO2 42 mmHg (35-48); ABG PH 7.419 (7.350-7.450); CARBON MONOXIDE 0.3 % (0.5-1.5); DEVICE COMMENT JULIA RN, AL; PO2, ARTERIAL BG 149.0 mmHg (83.0-108.0); TEMPERATURE, CELSIUS BG 37.0 CELSIUS (35.5-37.0); VENT MODE, BG SIMV PS10 (ROOM AIR)
--- NOTE | 2025-03-06 18:45 | NUR ---
SUMMARY NOTE- REPORT WAS CALLED FROM OR @1230 44 YR OLD MALE CABG WITH DR. MCKAY, CABG X3 NO COMPLICATIONS NO TRANSFUSIONS, DID WELL, OFF PUMP, GARCIA 55% EF. SIMV INTUBATED RATE 12 PEEP 5, PS 10, TV 500 FIO2 60 - TOLERATED VENT WEANING WELL, OFF DRIPS, NITRO WAS STARTED FOR HTN FOR A LITTLE BIT, MORPHINE WAS GIVEN ON ARRIVAL FOR PAIN, PT WAS AWAKE DROWSY FOLLOWING COMMANDS ALL DAY. CALM AND PASSIVE. HX OF COCAINE AND K2 ABUSE, PRECEDEX PRN, EXTUBATED AT 1842 PT ALERT AND AWAKE, FOLLOWING COMMANDS, ABLE TO LIFT HIS HEAD, STRONG EXTREMITIES, LOWEST VENT SETTINGS, VITAL CAPACITY 1000ML, NIF -25, DEFLATED CUFF ON ET TUBE PT COUGHED, SUCTION PROVIDED ORAL CARE, LARGE SECRETIONS AT THIS TIME S/P EXTUBATION ON AEROSOL MASK 10 L 40% - NO PAIN WELL TOLERATED SLOWED DOWN ON CHEST TUBE OUTPUT.
--- NOTE | 2025-03-06 18:54 | PN ---
Non-STEMI late January 2025 Left main and three-vessel coronary disease Cocaine and alcohol abuse Tobacco abuse Status post coronary bypass Patient is alert and oriented off all pressors and despite being still intubated he interacts appropriately. Chest is clear and both sides are ventilated. Heart tones are normal, no murmur , sinus rhythm. Impression and plan: Successful coronary bypass for left main and three-vessel coronary disease Continue usual surgical protocols and observe rhythm and hemodynamics. Vitals/Labs Vital Signs Date Time Temp Pulse Resp B/P (MAP) Pulse Ox O2 Delivery O2 Flow Rate FiO2 03/06/25 18:42 97.9 84 16 119/56 100 Aerosol Face Mask 10.0 40 Laboratory Tests 03/06/25 04:26 03/06/25 12:56 Microbiology Date/Time Source Procedure Growth Status 03/06/25 01:00 Nasal Nasal Screen MRSA (PCR)(GAEL) - Final Complete Medications Current Medications Insulin Human Regular INSULIN SLIDING SCAL... ACHS SQ Last administered on 03/05/25at 20:31; Start 03/03/25 at 21:00; Stop 03/06/25 at 09:48; Status DC Dextrose 50 ml AD PRN IV; Start 03/03/25 at 18:00; Stop 03/06/25 at 10:19; Status DC Glucagon 1 mg AD PRN IM; Start 03/03/25 at 18:00; Stop 03/06/25 at 10:20; Status DC Famotidine 20 mg BID PO Last administered on 03/05/25at 20:39; Start 03/03/25 at 21:00; Stop 03/06/25 at 09:48; Status DC Amlodipine Besylate 5 mg Q24H PO; Start 03/03/25 at 18:00; Stop 04/02/25 at 17:59; Status UNV Acetaminophen 650 mg Q6H PRN PO; Start 03/03/25 at 18:00; Stop 03/06/25 at 10:18; Status DC Nitroglycerin 0.4 mg AD PRN SL; Start 03/03/25 at 18:00; Stop 03/06/25 at 09:48; Status DC Ondansetron HCl 4 mg Q6H PRN IVP; Start 03/03/25 at 18:00; Stop 03/06/25 at 10:20; Status DC Atorvastatin Calcium 40 mg HS PO Last administered on 03/05/25at 20:39; Start 03/03/25 at 21:00; Stop 04/02/25 at 20:59 Amlodipine Besylate 5 mg Q24H PO; Start 03/03/25 at 18:00; Stop 03/03/25 at 19:00; Status DC Heparin Sodium/ Dextrose 250 ml @ 0 mls/hr Q6H IV Last administered on 03/03/25at 19:32; Start 03/03/25 at 18:30; Stop 03/06/25 at 09:48; Status DC Morphine Sulfate 2 mg Q6H PRN IVP; Start 03/03/25 at 18:00; Stop 03/06/25 at 09:48; Status DC Insulin Glargine 12 units HS SQ Last administered on 03/05/25at 20:32; Start 03/03/25 at 21:00; Stop 03/06/25 at 09:48; Status DC Aspirin 81 mg DAILY PO Last administered on 03/05/25at 08:52; Start 03/04/25 at 09:00; Stop 04/03/25 at 08:59 Amlodipine Besylate 5 mg Q24H PO Last administered on 03/05/25at 20:39; Start 03/03/25 at 19:30; Stop 03/06/25 at 09:48; Status DC Heparin Sodium (Porcine) 5,000 unit AD IV; Start 03/03/25 at 19:30; Stop 03/06/25 at 09:48; Status DC Heparin Sodium (Porcine) 2,000 unit ONCE ONCE IV Last administered on 03/04/25at 02:19; Start 03/04/25 at 02:00; Stop 03/04/25 at 02:04; Status DC Potassium Bicarbonate 50 meq ONCE ONCE PO Last administered on 03/04/25at 05:24; Start 03/04/25 at 05:30; Stop 03/04/25 at 05:31; Status DC Cefazolin Sodium 2 gm ONCALL IVP; Start 03/05/25 at 23:30; Stop 03/06/25 at 09:52; Status DC Cefazolin Sodium 1 gm STK-MED ONCE .ROUTE; Start 03/06/25 at 06:54; Stop 03/06/25 at 06:54; Status DC Heparin Sodium/ Sodium Chloride 500 ml @ As Directed STK-MED ONCE IV; Start 03/06/25 at 06:54; Stop 03/06/25 at 06:54; Status DC Papaverine HCl 60 mg STK-MED ONCE .ROUTE; Start 03/06/25 at 06:54; Stop 03/06/25 at 06:54; Status DC Epinephrine HCl 10 mg/Sodium Chloride 250 ml @ 0 mls/hr AD PRN IV; Start 03/06/25 at 08:00; Stop 04/05/25 at 07:59 Norepinephrine Bitartrate 250 ml @ 0 mls/hr AD PRN IV; Start 03/06/25 at 08:00; Stop 04/05/25 at 07:59 Aminocaproic Acid 87675 mg/Sodium Chloride 480 ml @ 0 mls/hr AD PRN IV; Start 03/06/25 at 08:00; Stop 04/05/25 at 07:59 Lidocaine HCl/ Dextrose 250 ml @ As Directed STK-MED ONCE IV; Start 03/06/25 at 09:08; Stop 03/06/25 at 09:08; Status DC Nitroglycerin/ Dextrose 1 ml @ As Directed STK-MED ONCE .ROUTE; Start 03/06/25 at 09:08; Stop 03/06/25 at 09:08; Status DC Protamine Sulfate 250 mg STK-MED ONCE IV; Start 03/06/25 at 09:19; Stop 03/06/25 at 09:19; Status DC Lidocaine HCl 100 mg STK-MED ONCE .ROUTE; Start 03/06/25 at 09:19; Stop 03/06/25 at 09:19; Status DC Heparin Sodium (Porcine) 10,000 unit STK-MED ONCE .ROUTE; Start 03/06/25 at 09:19; Stop 03/06/25 at 09:19; Status DC Epinephrine HCl 1 mg STK-MED ONCE .ROUTE; Start 03/06/25 at 09:19; Stop 03/06/25 at 09:19; Status DC Sodium Bicarbonate 200 ml @ As Directed STK-MED ONCE .ROUTE; Start 03/06/25 at 09:19; Stop 03/06/25 at 09:19; Status DC Norepinephrine Bitartrate 4 mg STK-MED ONCE IV; Start 03/06/25 at 09:19; Stop 03/06/25 at 09:19; Status DC Fentanyl Citrate 1,000 mcg STK-MED ONCE IJ; Start 03/06/25 at 09:19; Stop 03/06/25 at 09:20; Status DC Propofol 200 mg STK-MED ONCE IV; Start 03/06/25 at 09:20; Stop 03/06/25 at 09:20; Status DC Midazolam HCl 2 mg STK-MED ONCE .ROUTE; Start 03/06/25 at 09:20; Stop 03/06/25 at 09:20; Status DC Rocuronium [place] 50 mg STK-MED ONCE .ROUTE; Start 03/06/25 at 09:20; Stop 03/06/25 at 09:20; Status DC Acetaminophen 1,000 mg Q6H6 IV Last administered on 03/06/25at 17:30; Start 03/06/25 at 14:00; Stop 03/07/25 at 13:59 Aspirin 81 mg ONCE ONCE NG; Start 03/06/25 at 14:00; Stop 03/06/25 at 14:01; Status DC Docusate Sodium 100 mg BID PO; Start 03/06/25 at 21:00; Stop 04/05/25 at 20:59 Lactulose 20 gm BID PRN PO; Start 03/06/25 at 10:00; Stop 04/05/25 at 09:59 Furosemide 20 mg Q12H PO; Start 03/08/25 at 09:00; Stop 04/07/25 at 08:59 Furosemide 20 mg Q12H IV; Start 03/07/25 at 09:00; Stop 03/08/25 at 08:59 Magnesium Hydroxide 30 ml DAILY PRN PO; Start 03/06/25 at 10:00; Stop 04/05/25 at 09:59 Dexmedetomidine/ Sodium Chloride 400 mcg PROTOCOL IV; Start 03/06/25 at 10:00; Stop 03/07/25 at 09:59 Acetaminophen 650 mg Q6H PRN PO; Start 03/06/25 at 10:00; Stop 04/05/25 at 09:59 Sodium Chloride 1,000 ml @ 10 mls/hr ONCE IV Last administered on 03/06/25at 13:17; Start 03/06/25 at 10:00; Stop 03/07/25 at 09:59 Sodium Chloride 10 ml Q8H PRN IVP; Start 03/06/25 at 10:00; Stop 04/05/25 at 09:59 Morphine Sulfate 0.5 mg Q2H PRN IV Last administered on 03/06/25at 13:54; Start 03/06/25 at 10:00; Stop 03/07/25 at 09:59 Morphine Sulfate 1 mg Q2H PRN IVP; Start 03/06/25 at 10:30; Stop 03/13/25 at 10:29 Acetaminophen 650 mg Q4H PRN RC; Start 03/06/25 at 10:00; Stop 04/05/25 at 09:59 Ondansetron HCl 4 mg Q6H PRN IV; Start 03/06/25 at 10:00; Stop 04/05/25 at 09:59 Sodium Chloride 500 ml @ 0 mls/hr AD IV; Start 03/06/25 at 10:00; Stop 04/05/25 at 09:59 Nitroglycerin/ Dextrose 0 ml @ 0 mls/hr AD IV Last administered on 03/06/25at 13:16; Start 03/06/25 at 10:00; Stop 03/09/25 at 09:59 Propofol 100 ml @ 0 mls/hr AD PRN IV; Start 03/06/25 at 10:00; Stop 03/10/25 at 09:59 Norepinephrine Bitartrate 8 mg/ Dextrose 250 ml @ 0 mls/hr AD PRN IV; Start 03/06/25 at 10:00; Stop 03/06/25 at 10:13; Status DC Epinephrine HCl 10 mg/Sodium Chloride 250 ml @ 0 mls/hr AD PRN IV; Start 03/06/25 at 10:00; Stop 03/06/25 at 10:13; Status DC Aminocaproic Acid 21343 mg/Sodium Chloride 310 ml @ 25 mls/hr AD IV; Start 03/06/25 at 10:00; Stop 03/06/25 at 10:13; Status DC Calcium Gluconate 1 gm/Sodium Chloride 60 ml @ 200 mls/hr AD PRN IV; Start 03/06/25 at 10:00; Stop 04/05/25 at 09:59 Magnesium Sulfate 50 ml @ 12.5 mls/hr AD PRN IV Last administered on 03/06/25at 13:54; Start 03/06/25 at 10:00; Stop 04/05/25 at 09:59 Potassium Chloride 100 ml @ 100 mls/hr AD PRN IV Last administered on 03/06/25at 13:14; Start 03/06/25 at 10:00; Stop 04/05/25 at 09:59 Potassium Phosphate 250 ml @ 42 mls/hr AD PRN IV; Start 03/06/25 at 10:00; Stop 04/05/25 at 09:59 Albumin Human 250 ml @ 0 mls/hr AD PRN IV Last administered on 03/06/25at 13:54; Start 03/06/25 at 10:00 Acetaminophen 650 mg Q4H PRN PO; Start 03/06/25 at 10:00; Stop 04/05/25 at 09:59 Insulin Human Regular 100 unit/ Sodium Chloride 100 ml @ 0 mls/hr AD IV Last administered on 03/06/25at 13:16; Start 03/06/25 at 10:00; Stop 03/08/25 at 09:59 Cefazolin Sodium 2 gm Q8H IVPB Last administered on 03/06/25at 15:56; Start 03/06/25 at 15:00; Stop 03/07/25 at 07:01 Tramadol HCl 25 mg Q6H PRN PO; Start 03/06/25 at 10:00; Stop 03/11/25 at 09:59 Tramadol HCl 50 mg Q6H PRN PO; Start 03/06/25 at 10:00; Stop 03/11/25 at 09:59 Famotidine 20 mg BID IV; Start 03/06/25 at 21:00; Stop 04/05/25 at 20:59 Sodium Bicarbonate 50 meq AD PRN IV; Start 03/06/25 at 10:00; Stop 03/09/25 at 09:59 Dextrose 50 ml AD PRN IV; Start 03/06/25 at 10:00; Stop 04/05/25 at 09:59 Glucagon 1 mg AD PRN IM; Start 03/06/25 at 10:00; Stop 04/05/25 at 09:59 Amiodarone HCl 150 mg STK-MED ONCE .ROUTE; Start 03/06/25 at 10:27; Stop 03/06/25 at 10:28; Status DC Amiodarone HCl 150 mg STK-MED ONCE .ROUTE; Start 03/06/25 at 10:31; Stop 03/06/25 at 10:31; Status DC Lidocaine HCl 100 mg STK-MED ONCE .ROUTE; Start 03/06/25 at 10:31; Stop 03/06/25 at 10:31; Status DC Heparin Sodium (Porcine) 10,000 unit STK-MED ONCE .ROUTE; Start 03/06/25 at 10:31; Stop 03/06/25 at 10:31; Status DC Cefazolin Sodium 2 gm STK-MED ONCE IVPB Last administered on 03/06/25at 09:45; Start 03/06/25 at 09:45; Stop 03/06/25 at 11:16; Status DC Papaverine HCl 60 mg STK-MED ONCE IRRIG Last administered on 03/06/25at 09:17; Start 03/06/25 at 09:17; Stop 03/06/25 at 11:16; Status DC Cefazolin Sodium 1 gm STK-MED ONCE IRRIG Last administered on 03/06/25at 09:17; Start 03/06/25 at 09:17; Stop 03/06/25 at 11:16; Status DC Heparin Sodium (Porcine) 10,000 unit STK-MED ONCE .ROUTE; Start 03/06/25 at 11:12; Stop 03/06/25 at 11:12; Status DC Albumin Human 500 ml @ As Directed STK-MED ONCE IV; Start 03/06/25 at 11:59; Stop 03/06/25 at 12:00; Status DC Fentanyl Citrate 250 mcg STK-MED ONCE IV; Start 03/06/25 at 12:26; Stop 03/06/25 at 12:27; Status DC Nicardipine HCl 50 mg/Sodium Chloride 250 ml @ 0 mls/hr PROTOCOL IV; Start 03/06/25 at 13:30; Stop 04/05/25 at 13:29 MIGNON GALINDO MD Mar 06, 2025 18:54
[2025-03-06 19:51] LABS: ABG BASE EXCESS 1.6 mmol/L (-2.0-3.0); ABG HCO3 26.1 mmol/L (21.0-28.0); ABG OXYGEN SATURATION 98.2 % (94.0-98.0); ABG PCO2 41 mmHg (35-48); ABG PH 7.427 (7.350-7.450); CARBON MONOXIDE 0.3 % (0.5-1.5); DEVICE COMMENT MARISA RN, AL; PO2, ARTERIAL BG 154.6 mmHg (83.0-108.0); TEMPERATURE, CELSIUS BG 37.0 CELSIUS (35.5-37.0); VENT MODE, BG CAFM (ROOM AIR)
[2025-03-06] MEDS: FAMOTIDINE 20MG VIAL IV SCH (20:11)
[2025-03-06] MEDS: ASPIRIN 81MG CHEW TAB NG ONE (20:18)
[2025-03-07] VITALS (77 sets, daily range): BP systolic 89–163; BP diastolic 45–116; PULSE 82–105; RESP 6–88; TEMP 97.7–99.7; O2SAT 95–99
[2025-03-07 04:16] LABS: IMMATURE GRANULOCYTE ABSOLUTE 0.03 K/uL (0-1); NUCLEATED RED BLOOD CELLS 0.0 % (0.0-0.19); PLATELET COUNT (AUTO) 199 K/uL (130-400); RED BLOOD CELL COUNT(AUTO) 2.93 MIL/uL (4.50-6.20); RED CELL DISTRIBUTION WIDTH 14.1 % (11.0-15.5); WHITE BLOOD COUNT (AUTO) 9.2 K/uL (4.8-10.8)
[2025-03-07 04:26] LABS: ABG BASE EXCESS 1.9 mmol/L (-2.0-3.0); ABG HCO3 25.9 mmol/L (21.0-28.0); ABG OXYGEN SATURATION 94.6 % (94.0-98.0); ABG PCO2 38 mmHg (35-48); ABG PH 7.450 (7.350-7.450); CARBON MONOXIDE 0.3 % (0.5-1.5); DEVICE COMMENT MARISA RN, AL; PO2, ARTERIAL BG 75.0 mmHg (83.0-108.0); TEMPERATURE, CELSIUS BG 37.0 CELSIUS (35.5-37.0); VENT MODE, BG RA (ROOM AIR)
[2025-03-07 04:30] LABS: INR 1.14 (0.85-1.15)
[2025-03-07 04:36] LABS: CREATININE 0.7 mg/dL (0.5-1.3); GLOMERULAR FILTR. RATE CALC 118.0 mL/min (>90); GLUCOSE,RANDOM 90.0 mg/dL (70-105); PHOSPHORUS 5.0 mg/dL (2.5-4.9); SODIUM SERUM 146.0 mmol/L (136-145); UREA NITROGEN, BLOOD 12.0 mg/dL (7-18)
[2025-03-07] MEDS: FAMOTIDINE 20MG TAB PO SCH (08:01)
--- NOTE | 2025-03-07 08:31 | PN ---
[facility] PROGRESS NOTE Date Patient Seen: Mar 07, 2025 Time of Visit: 08:24 Supervising Physician: Dr Van Primary Care Physician: Claudia Referral Outpatient Specialists: [ ] Inpatient Consults: Dr Van, Dr Griffin, Dr Horn Attending: Sho Team PROBLEM LIST: CABG X 3 (PARK to LAD, RSVG to the 1st obtuse marginal coronary artery, RSVG from the aorta to the PDA) on 03/06/25 NSTEMI, POA LHC with findings of severe multivessel coronary artery disease, POA LVEF of 55% on 03/04/25 History of tobacco use disorder, POA History of polysubstance abuse with cocaine and synthetic marijuana, POA Uncontrolled type 2 diabetes mellitus, POA, hemoglobin A1c 10.3 Hypertension, POA Hyperlipidemia, POA INTERVAL HISTORY: Patient seen and examined, successfully extubated overnight, he is sitting comfortably at the bedside chair reporting his pain controlled. Patient is on nasal cannula at 2 L with good saturations, off any drips, Alert and oriented x4 Vital signs stable Afebrile No drips Chest tube 770/24 Hepatitis panel negative, LFTs normal Plan: Follow CT surgeon postop protocol Cardiac diet, advance as tolerated PT/OT Follow I&Os Daily chest x-ray Daily labs IS Sliding scale insulin REVIEW OF SYSTEMS: Unable to perform due to patient's intubated and post CABG. PHYSICAL EXAM: GENERAL: Awake to voice, intubated post CABG. HEENT: EOMI, Sclera non icteric, moist mucosa NECK: Supple, no JVD, trachea midline. RT IJ CVC LUNGS: Rhonchi to right lower lobes. . No wheezes. chest tube HEART: Regular rate and rhythm. Normal S1 and S2, without murmurs ABD: Abdomen soft, nontender. Bowel sounds present EXT: No clubbing cyanosis or edema, Venkat hosed to RLE , juliano wrap to left leg. NEURO: awake, intubated no focal weakness. Vital Signs (last 8hr) Date Time Temp Pulse Resp B/P (MAP) Pulse Ox O2 Delivery O2 Flow Rate FiO2 03/07/25 06:30 96 6 150/64 (92) 98 03/07/25 06:15 96 7 148/61 (90) 96 03/07/25 06:00 97 13 150/62 (91) 97 21 03/07/25 05:45 105 13 156/62 (93) 96 03/07/25 05:30 97 13 141/58 (85) 96 03/07/25 05:15 99 13 150/64 (92) 97 03/07/25 05:00 92 13 134/57 (82) 96 21 03/07/25 04:45 94 13 163/70 (101) 97 03/07/25 04:30 94 13 147/59 (88) 97 03/07/25 04:15 93 13 162/65 (97) 98 03/07/25 04:00 98.6 92 9 127/54 (78) 96 21 03/07/25 04:00 97 Room Air* 0 21 03/07/25 03:45 93 9 146/59 (88) 97 112/77 (89) 03/07/25 03:30 94 15 119/116 (117) 100 03/07/25 03:15 89 15 122/54 (76) 99 03/07/25 03:00 91 15 128/55 (79) 100 28 03/07/25 02:45 92 15 136/58 (84) 100 117/83 (94) 03/07/25 02:30 90 15 115/51 (72) 100 03/07/25 02:15 87 15 119/54 (75) 100 03/07/25 02:00 91 15 128/54 (78) 100 28 03/07/25 01:45 85 15 110/49 (69) 99 104/70 (81) 03/07/25 01:30 98 15 136/61 (86) 100 03/07/25 01:15 90 12 130/57 (81) 100 03/07/25 01:00 95 12 147/65 (92) 100 28 03/07/25 00:45 102 12 137/61 (86) 100 119/75 (90) 03/07/25 00:30 91 12 130/57 (81) 100 LABS: Hematology Labs: Test 03/07/25 03:50 Range/Units White Blood Count 9.2 # 4.8-10.8 K/uL Red Blood Count 2.93 L 4.50-6.20 MIL/uL Hemoglobin 8.8 L 14.0-18.0 g/dL Hematocrit 26.9 L 42-54 % Mean Corpuscular Volume 91.8 79-99 fL Mean Corpuscular Hemoglobin 30.0 27.0-33.0 pg Mean Corpuscular Hemoglobin Concent 32.7 32.0-36.0 g/dL Red Cell Distribution Width 14.1 11.0-15.5 % Platelet Count 199 130-400 K/uL Mean Platelet Volume 9.9 7.5-10.5 fL Immature Granulocyte % (Auto) 0.3 0-1 % Neutrophils (%) (Auto) 76.8 40.0-77.0 % Lymphocytes (%) (Auto) 15.2 L 21.0-51.0 % Monocytes (%) (Auto) 7.3 3.0-13.0 % Eosinophils (%) (Auto) 0.1 0.0-8.0 % Basophils (%) (Auto) 0.3 0.0-5.0 % Neutrophils # (Auto) 7.1 1.8-7.7 K/uL Lymphocytes # (Auto) 1.4 1.0-4.8 K/uL Monocytes # (Auto) 0.7 0.1-1.0 K/uL Eosinophils # (Auto) 0.01 0.00-0.70 K/uL Basophils # (Auto) 0.03 0.00-0.20 K/uL Absolute Immature Granulocyte (auto 0.03 0-1 K/uL Nucleated Red Blood Cells 0.0 0.0-0.19 % Chemistry Labs: Test 03/07/25 07:59 03/07/25 03:50 03/06/25 04:26 Range/Units Whole Blood Glucose 88 70-110 MG/DL Sodium Level 146 H 136-145 mmol/L Potassium Level 4.1 3.5-5.1 mmol/L Chloride Level 111 101-111 mmol/L Carbon Dioxide Level 29 21-32 mmol/L Blood Urea Nitrogen 12 7-18 mg/dL Creatinine 0.7 0.5-1.3 mg/dL Glomerular Filtration Rate Calc 118 >90 mL/min Random Glucose 90 70-105 mg/dL Total Calcium 8.6 # 8.5-10.1 mg/dL Ionized Calcium 1.20 1.15-1.33 MMOL/L Phosphorus Level 5.0 H 2.5-4.9 mg/dL Magnesium Level 1.80 1.80-2.40 mg/dL B-Type Natriuretic Peptide 206 H 0-100 pg/mL Hemoglobin A1c 10.3 H 4.0-6.0 % Estimated Average Glucose (eAG) 249 H 70-126 mg/dL Total Bilirubin 0.3 0.2-1.0 mg/dL Aspartate Amino Transf (AST/SGOT) 25 10-37 U/L Alanine Aminotransferase (ALT/SGPT) 21 12-78 U/L Alkaline Phosphatase 99 50-136 U/L Total Protein 6.3 6.0-8.3 g/dL Albumin 3.0 L 3.5-5.0 g/dL Triglycerides Level 84 30-200 mg/dL Cholesterol Level 130 <200 mg/dL LDL Cholesterol 62 0-99 mg/dL HDL Cholesterol 60 29-71 mg/dL Coagulation Labs: Test 03/07/25 03:50 03/06/25 12:56 Range/Units Prothrombin Time 11.9 H 9.6-11.6 SEC Prothromb Time International Ratio 1.14 0.85-1.15 Activated Partial Thromboplast Time 29.3 26.3-35.5 SEC Fibrinogen 196 180-350 mg/dL DIAGNOSTICS / RADIOLOGY RESULTS: [ ] PLAN NEURO: Minimize central acting medications as possible. Fall Precautions. Well lighted room through the day and minimize interruptions through the night to prevent acute delirium. PULMONARY: Supplemental 02 as needed Titrate Fio2 to keep Spo2 > or = 90% DuoNebs and CPT as needed IS hourly while awake for pulmonary hygiene Out of bed to chair as tolerated CARDIOVASCULAR: Follow hemodynamics. Titrate vasopressor to keep MAP >65 or systolic blood pressure >95mmHg DRIPS: Insulin epi LINES: RT IJ CVC alex chest tube FC GI & NUTRITION: Continue nutritional support Aspirations precautions Prokinetic agents and laxatives as needed KIDNEYS & ELECTROLYTES: Strict monitoring of intake and output Daily weights Avoid nephrotoxic agents Monitor electrolytes and replace as needed Goal urine output of 30mL/hr or 0.5mL/kg/hr Urine output: [ 660 m] Fluid Balance: [ ] ENDOCRINE: Maintain blood glucose between 100-180 at all times. Insulin sliding scale for blood glucose management INFECTIOUS DISEASE: Trend temperature. Suazo-culture if febrile. Micro: [ ] MRSA negative Antibiotics: [ ] ancef HEMATOLOGY & COAGULATION: Monitor H&H. Keep Hgb > 7 Transfuse 1 unit of PRBC for Hgb < 7 Transfuse 1 pack of platelets of platelets < 20, 000 Watch for any signs and symptoms of bleeding SKIN: Pressure ulcer prevention per facility protocol Rehab: PT/OT Prophylaxis: GI: famotidine DVT: [Tedhose per CV surgery ] Code Status: Full Resuscitation Disposition: [ ICU ] Other: Total patient care time exceeds 35 minutes excluding all procedures. Case was discussed and seen with my supervising physician. The above plan was formulated and agreed upon. MALENA REA Mar 07, 2025 08:31
--- NOTE | 2025-03-07 09:20 | PN ---
Non-STEMI late January 2025 Left main and three-vessel coronary disease Cocaine and alcohol abuse Tobacco abuse Status post coronary bypass Patient complains of expected surgical and where the chest tube pain but is otherwise doing well. Limited air movement due to pleuritic pain but no rales, nonlabored respiration. Normal S1 and S2, no murmur. No edema. Oriented in all spheres and no obvious focal neurologic deficits. No arrhythmias as yet. Impression and plan: Stable after coronary bypass, advance usual post surgical protocols Vitals/Labs Vital Signs Date Time Temp Pulse Resp B/P (MAP) Pulse Ox O2 Delivery O2 Flow Rate FiO2 03/07/25 07:15 90 17 N/A Room Air 21 03/07/25 06:30 150/64 (92) 98 03/07/25 04:00 98.6 03/07/25 04:00 0 Laboratory Tests 03/06/25 12:56 03/07/25 03:50 Medications Current Medications Insulin Human Regular INSULIN SLIDING SCAL... ACHS SQ Last administered on 03/05/25at 20:31; Start 03/03/25 at 21:00; Stop 03/06/25 at 09:48; Status DC Dextrose 50 ml AD PRN IV; Start 03/03/25 at 18:00; Stop 03/06/25 at 10:19; Status DC Glucagon 1 mg AD PRN IM; Start 03/03/25 at 18:00; Stop 03/06/25 at 10:20; Status DC Famotidine 20 mg BID PO Last administered on 03/05/25at 20:39; Start 03/03/25 at 21:00; Stop 03/06/25 at 09:48; Status DC Amlodipine Besylate 5 mg Q24H PO; Start 03/03/25 at 18:00; Stop 04/02/25 at 17:59; Status UNV Acetaminophen 650 mg Q6H PRN PO; Start 03/03/25 at 18:00; Stop 03/06/25 at 10:18; Status DC Nitroglycerin 0.4 mg AD PRN SL; Start 03/03/25 at 18:00; Stop 03/06/25 at 09:48; Status DC Ondansetron HCl 4 mg Q6H PRN IVP; Start 03/03/25 at 18:00; Stop 03/06/25 at 10:20; Status DC Atorvastatin Calcium 40 mg HS PO Last administered on 03/06/25at 20:11; Start 03/03/25 at 21:00; Stop 04/02/25 at 20:59 Amlodipine Besylate 5 mg Q24H PO; Start 03/03/25 at 18:00; Stop 03/03/25 at 19:00; Status DC Heparin Sodium/ Dextrose 250 ml @ 0 mls/hr Q6H IV Last administered on 03/03/25at 19:32; Start 03/03/25 at 18:30; Stop 03/06/25 at 09:48; Status DC Morphine Sulfate 2 mg Q6H PRN IVP; Start 03/03/25 at 18:00; Stop 03/06/25 at 09:48; Status DC Insulin Glargine 12 units HS SQ Last administered on 03/05/25at 20:32; Start 03/03/25 at 21:00; Stop 03/06/25 at 09:48; Status DC Aspirin 81 mg DAILY PO Last administered on 03/07/25at 08:00; Start 03/04/25 at 09:00; Stop 04/03/25 at 08:59 Amlodipine Besylate 5 mg Q24H PO Last administered on 03/05/25at 20:39; Start 03/03/25 at 19:30; Stop 03/06/25 at 09:48; Status DC Heparin Sodium (Porcine) 5,000 unit AD IV; Start 03/03/25 at 19:30; Stop 03/06/25 at 09:48; Status DC Heparin Sodium (Porcine) 2,000 unit ONCE ONCE IV Last administered on 03/04/25at 02:19; Start 03/04/25 at 02:00; Stop 03/04/25 at 02:04; Status DC Potassium Bicarbonate 50 meq ONCE ONCE PO Last administered on 03/04/25at 05:24; Start 03/04/25 at 05:30; Stop 03/04/25 at 05:31; Status DC Cefazolin Sodium 2 gm ONCALL IVP; Start 03/05/25 at 23:30; Stop 03/06/25 at 09:52; Status DC Cefazolin Sodium 1 gm STK-MED ONCE .ROUTE; Start 03/06/25 at 06:54; Stop 03/06/25 at 06:54; Status DC Heparin Sodium/ Sodium Chloride 500 ml @ As Directed STK-MED ONCE IV; Start 03/06/25 at 06:54; Stop 03/06/25 at 06:54; Status DC Papaverine HCl 60 mg STK-MED ONCE .ROUTE; Start 03/06/25 at 06:54; Stop 03/06/25 at 06:54; Status DC Epinephrine HCl 10 mg/Sodium Chloride 250 ml @ 0 mls/hr AD PRN IV; Start 03/06/25 at 08:00; Stop 04/05/25 at 07:59 Norepinephrine Bitartrate 250 ml @ 0 mls/hr AD PRN IV; Start 03/06/25 at 08:00; Stop 04/05/25 at 07:59 Aminocaproic Acid 56007 mg/Sodium Chloride 480 ml @ 0 mls/hr AD PRN IV; Start 03/06/25 at 08:00; Stop 04/05/25 at 07:59 Lidocaine HCl/ Dextrose 250 ml @ As Directed STK-MED ONCE IV; Start 03/06/25 at 09:08; Stop 03/06/25 at 09:08; Status DC Nitroglycerin/ Dextrose 1 ml @ As Directed STK-MED ONCE .ROUTE; Start 03/06/25 at 09:08; Stop 03/06/25 at 09:08; Status DC Protamine Sulfate 250 mg STK-MED ONCE IV; Start 03/06/25 at 09:19; Stop 03/06/25 at 09:19; Status DC Lidocaine HCl 100 mg STK-MED ONCE .ROUTE; Start 03/06/25 at 09:19; Stop 03/06/25 at 09:19; Status DC Heparin Sodium (Porcine) 10,000 unit STK-MED ONCE .ROUTE; Start 03/06/25 at 09:19; Stop 03/06/25 at 09:19; Status DC Epinephrine HCl 1 mg STK-MED ONCE .ROUTE; Start 03/06/25 at 09:19; Stop 03/06/25 at 09:19; Status DC Sodium Bicarbonate 200 ml @ As Directed STK-MED ONCE .ROUTE; Start 03/06/25 at 09:19; Stop 03/06/25 at 09:19; Status DC Norepinephrine Bitartrate 4 mg STK-MED ONCE IV; Start 03/06/25 at 09:19; Stop 03/06/25 at 09:19; Status DC Fentanyl Citrate 1,000 mcg STK-MED ONCE IJ; Start 03/06/25 at 09:19; Stop 03/06/25 at 09:20; Status DC Propofol 200 mg STK-MED ONCE IV; Start 03/06/25 at 09:20; Stop 03/06/25 at 09:20; Status DC Midazolam HCl 2 mg STK-MED ONCE .ROUTE; Start 03/06/25 at 09:20; Stop 03/06/25 at 09:20; Status DC Rocuronium [place] 50 mg STK-MED ONCE .ROUTE; Start 03/06/25 at 09:20; Stop 03/06/25 at 09:20; Status DC Acetaminophen 1,000 mg Q6H6 IV Last administered on 03/07/25at 05:30; Start 03/06/25 at 14:00; Stop 03/07/25 at 13:59 Aspirin 81 mg ONCE ONCE NG Last administered on 03/06/25at 20:18; Start 03/06/25 at 14:00; Stop 03/06/25 at 14:01; Status DC Docusate Sodium 100 mg BID PO Last administered on 03/07/25at 07:58; Start 03/06/25 at 21:00; Stop 04/05/25 at 20:59 Lactulose 20 gm BID PRN PO; Start 03/06/25 at 10:00; Stop 04/05/25 at 09:59 Furosemide 20 mg Q12H PO; Start 03/08/25 at 09:00; Stop 04/07/25 at 08:59 Furosemide 20 mg Q12H IV Last administered on 03/07/25at 08:00; Start 03/07/25 at 09:00; Stop 03/08/25 at 08:59 Magnesium Hydroxide 30 ml DAILY PRN PO; Start 03/06/25 at 10:00; Stop 04/05/25 at 09:59 Dexmedetomidine/ Sodium Chloride 400 mcg PROTOCOL IV; Start 03/06/25 at 10:00; Stop 03/07/25 at 09:59 Acetaminophen 650 mg Q6H PRN PO; Start 03/06/25 at 10:00; Stop 04/05/25 at 09:59 Sodium Chloride 1,000 ml @ 10 mls/hr ONCE IV Last administered on 03/06/25at 13:17; Start 03/06/25 at 10:00; Stop 03/07/25 at 09:59 Sodium Chloride 10 ml Q8H PRN IVP; Start 03/06/25 at 10:00; Stop 04/05/25 at 09:59 Morphine Sulfate 0.5 mg Q2H PRN IV Last administered on 03/06/25at 13:54; Start 03/06/25 at 10:00; Stop 03/07/25 at 09:59 Morphine Sulfate 1 mg Q2H PRN IVP; Start 03/06/25 at 10:30; Stop 03/13/25 at 10:29 Acetaminophen 650 mg Q4H PRN RC; Start 03/06/25 at 10:00; Stop 04/05/25 at 09:59 Ondansetron HCl 4 mg Q6H PRN IV; Start 03/06/25 at 10:00; Stop 04/05/25 at 09:59 Sodium Chloride 500 ml @ 0 mls/hr AD IV; Start 03/06/25 at 10:00; Stop 04/05/25 at 09:59 Nitroglycerin/ Dextrose 0 ml @ 0 mls/hr AD IV Last administered on 03/06/25at 13:16; Start 03/06/25 at 10:00; Stop 03/09/25 at 09:59 Propofol 100 ml @ 0 mls/hr AD PRN IV; Start 03/06/25 at 10:00; Stop 03/10/25 at 09:59 Norepinephrine Bitartrate 8 mg/ Dextrose 250 ml @ 0 mls/hr AD PRN IV; Start 03/06/25 at 10:00; Stop 03/06/25 at 10:13; Status DC Epinephrine HCl 10 mg/Sodium Chloride 250 ml @ 0 mls/hr AD PRN IV; Start 03/06/25 at 10:00; Stop 03/06/25 at 10:13; Status DC Aminocaproic Acid 00368 mg/Sodium Chloride 310 ml @ 25 mls/hr AD IV; Start 03/06/25 at 10:00; Stop 03/06/25 at 10:13; Status DC Calcium Gluconate 1 gm/Sodium Chloride 60 ml @ 200 mls/hr AD PRN IV; Start 03/06/25 at 10:00; Stop 04/05/25 at 09:59 Magnesium Sulfate 50 ml @ 12.5 mls/hr AD PRN IV Last administered on 03/07/25at 05:40; Start 03/06/25 at 10:00; Stop 04/05/25 at 09:59 Potassium Chloride 100 ml @ 100 mls/hr AD PRN IV Last administered on 03/06/25at 13:14; Start 03/06/25 at 10:00; Stop 04/05/25 at 09:59 Potassium Phosphate 250 ml @ 42 mls/hr AD PRN IV; Start 03/06/25 at 10:00; Stop 04/05/25 at 09:59 Albumin Human 250 ml @ 0 mls/hr AD PRN IV Last administered on 03/06/25at 13:54; Start 03/06/25 at 10:00 Acetaminophen 650 mg Q4H PRN PO; Start 03/06/25 at 10:00; Stop 04/05/25 at 09:59 Insulin Human Regular 100 unit/ Sodium Chloride 100 ml @ 0 mls/hr AD IV Last administered on 03/06/25at 13:16; Start 03/06/25 at 10:00; Stop 03/08/25 at 09:59 Cefazolin Sodium 2 gm Q8H IVPB Last administered on 03/07/25at 05:55; Start 03/06/25 at 15:00; Stop 03/07/25 at 07:01; Status DC Tramadol HCl 25 mg Q6H PRN PO; Start 03/06/25 at 10:00; Stop 03/11/25 at 09:59 Tramadol HCl 50 mg Q6H PRN PO Last administered on 03/07/25at 08:00; Start 03/06/25 at 10:00; Stop 03/11/25 at 09:59 Famotidine 20 mg BID IV Last administered on 03/06/25at 20:11; Start 03/06/25 at 21:00; Stop 03/07/25 at 07:48; Status DC Sodium Bicarbonate 50 meq AD PRN IV; Start 03/06/25 at 10:00; Stop 03/09/25 at 09:59 Dextrose 50 ml AD PRN IV; Start 03/06/25 at 10:00; Stop 04/05/25 at 09:59 Glucagon 1 mg AD PRN IM; Start 03/06/25 at 10:00; Stop 04/05/25 at 09:59 Amiodarone HCl 150 mg STK-MED ONCE .ROUTE; Start 03/06/25 at 10:27; Stop 03/06/25 at 10:28; Status DC Amiodarone HCl 150 mg STK-MED ONCE .ROUTE; Start 03/06/25 at 10:31; Stop 03/06/25 at 10:31; Status DC Lidocaine HCl 100 mg STK-MED ONCE .ROUTE; Start 03/06/25 at 10:31; Stop 03/06/25 at 10:31; Status DC Heparin Sodium (Porcine) 10,000 unit STK-MED ONCE .ROUTE; Start 03/06/25 at 10:31; Stop 03/06/25 at 10:31; Status DC Cefazolin Sodium 2 gm STK-MED ONCE IVPB Last administered on 03/06/25at 09:45; Start 03/06/25 at 09:45; Stop 03/06/25 at 11:16; Status DC Papaverine HCl 60 mg STK-MED ONCE IRRIG Last administered on 03/06/25at 09:17; Start 03/06/25 at 09:17; Stop 03/06/25 at 11:16; Status DC Cefazolin Sodium 1 gm STK-MED ONCE IRRIG Last administered on 03/06/25at 09:17; Start 03/06/25 at 09:17; Stop 03/06/25 at 11:16; Status DC Heparin Sodium (Porcine) 10,000 unit STK-MED ONCE .ROUTE; Start 03/06/25 at 11:12; Stop 03/06/25 at 11:12; Status DC Albumin Human 500 ml @ As Directed STK-MED ONCE IV; Start 03/06/25 at 11:59; Stop 03/06/25 at 12:00; Status DC Fentanyl Citrate 250 mcg STK-MED ONCE IV; Start 03/06/25 at 12:26; Stop 03/06/25 at 12:27; Status DC Nicardipine HCl 50 mg/Sodium Chloride 250 ml @ 0 mls/hr PROTOCOL IV; Start 03/06/25 at 13:30; Stop 04/05/25 at 13:29 Famotidine 20 mg BID PO Last administered on 03/07/25at 08:01; Start 03/07/25 at 09:00; Stop 04/06/25 at 08:59 MIGNON GALINDO MD Mar 07, 2025 09:20
--- NOTE | 2025-03-07 09:35 | PN ---
[facility] PROGRESS NOTE Date of Service: Mar 07, 2025 Time of Service: 09:34 SUBJECTIVE: [Patient was followed up today in room 227. Denies any chest pain at this time. Evaluation for multivessel bypass is planned; cardiothoracic surgeon consult is still pending. 2D echocardiogram performed yesterday showed LVEF of 55% with basal, mild, and apical inferior hypokinesia. Trace mitral valve regurgitation noted. Otherwise, patient has no complaints. Will await further recommendations from consulting services. 03/06/25 The patient is scheduled for surgery today: Coronary Artery bypass grafting today per Dr Elliott PATIENT WILL BE GOING TO ICU POST SURGERY ROOM 213. WE WILL BRING IN CRITICAL TEAM WHILE PATIENT IS IN ICU. 03/07/25 status post CABG day one. Off drips on room air. Patient out of bed to chair recuperating well. Has chest tube Primary nurse reports no events overnight. REVIEW OF SYSTEMS CONSTITUTIONAL: Denies fevers, chills, or night sweats. reports having had we ight loss of about 100 lbs in the last one year NEUROLOGICAL: Denies headache, amaurosis fugax, motor weakness, sensory deficit, vertigo/spinning sensation, gait abnormalities, or tremors. ENT: No hearing loss, otalgia, otorrhea, rhinitis, rhinorrhea, hoarseness, or sore throat. CARDIOVASCULAR: chest pain about a week ago PULMONARY: Denies any shortness of breath, cough, phlegm/sputum, hemoptysis, pleuritic chest pain. SLEEP: Denies morning headaches, daytime somnolence or napping. Denies difficulty falling asleep, staying asleep, waking from sleep. Denies knowledge of snoring. GASTROINTESTINAL: Denies any type of dysphagia to either liquids or solids. Denies nausea, vomiting, pyrosis, early satiety, abdominal pain, diarrhea, constipation, or changes in stool consistency or caliber. Denies coffee-ground emesis, hematemesis, hematochezia, or melanotic stools. GENITOURINARY: Denies frequency, urgency, nocturia, hematuria or incontinence (Storage/Irritative symptoms.) Low urinary stream, straining to void, urinary intermittency or hesitancy, splitting of the voiding stream, terminal dribbling. ENDOCRINOLOGIC: Denies polyuria, polydipsia, polyphagia or heat/cold intoleran huma. HEMATOLOGIC: Denies thrombophilia/previous clots, or coagulopathy/bleeding disorders. ONCOLOGIC: Denies personal history of malignancy. DERMATOLOGIC: Denies rashes or pruritus. PSYCHIATRIC: Denies any suicidal or homicidal ideation. Denies hallucinations. PHYSICAL EXAM GENERAL APPEARANCE: The patient is awake, alert, and oriented, in no acute cardiopulmonary distress. NEUROLOGICAL: Cranial nerves II-XII grossly intact. Neurological examination is nonfocal and patient is moving upper and lower extremities with no focal deficits HEENT: Face is symmetric. Pupils are equal and reactive. Extraocular movements are intact. NECK: Supple. No JVD. No thyromegaly. No submental, submandibular, pre- /postauricular, occipital or supraclavicular lymphadenopathy. CHEST: Normal chest expansion. No Telemetry. LUNGS: Absence of any rales, rhonchi or any wheezing. CARDIOVASCULAR: Regular. S1 and S2 normal. No appreciable rubs, murmurs or gallops. ABDOMEN: Soft, nontender, and nondistended. There is no rebound, voluntary guarding, or rigidity. : Deferred. No Conn. EXTREMITIES: Non-edematous and not cyanotic. No clubbing. Good capillary refi ll. SKIN: No skin breakdown. Vital Signs (last 8hr) Date Time Temp Pulse Resp B/P (MAP) Pulse Ox O2 Delivery O2 Flow Rate FiO2 03/07/25 07:15 90 17 N/A Room Air 03/07/25 06:30 96 6 150/64 (92) 98 03/07/25 06:15 96 7 148/61 (90) 96 03/07/25 06:00 97 13 150/62 (91) 97 03/07/25 05:45 105 13 156/62 (93) 96 03/07/25 05:30 97 13 141/58 (85) 96 03/07/25 05:15 99 13 150/64 (92) 97 03/07/25 05:00 92 13 134/57 (82) 96 03/07/25 04:45 94 13 163/70 (101) 97 03/07/25 04:30 94 13 147/59 (88) 97 03/07/25 04:15 93 13 162/65 (97) 98 03/07/25 04:00 98.6 92 9 127/54 (78) 96 21 03/07/25 04:00 97 Room Air* 0 21 03/07/25 03:45 93 9 146/59 (88) 97 112/77 (89) 03/07/25 03:30 94 15 119/116 (117) 100 03/07/25 03:15 89 15 122/54 (76) 99 03/07/25 03:00 91 15 128/55 (79) 100 28 03/07/25 02:45 92 15 136/58 (84) 100 117/83 (94) 03/07/25 02:30 90 15 115/51 (72) 100 03/07/25 02:15 87 15 119/54 (75) 100 03/07/25 02:00 91 15 128/54 (78) 100 28 03/07/25 01:45 85 15 110/49 (69) 99 104/70 (81) LABS: Laboratory: Test 03/07/25 09:08 03/07/25 04:24 03/07/25 03:50 03/06/25 19:49 Range/Units Whole Blood Glucose 155 #H 70-110 MG/DL Blood Gas Specimen Type Arterial Arterial Blood pH 7.450 7.350-7.450 Arterial Blood Partial Pressure CO2 38 35-48 mmHg Arterial Blood Partial Pressure O2 75.0 L 83.0-108.0 mmHg Arterial Blood HCO3 25.9 21.0-28.0 mmol/L Arterial Blood Oxygen Saturation 94.6 94.0-98.0 % Arterial Blood Base Excess 1.9 -2.0-3.0 mmol/L Hemoglobin (Blood Gas) 10.0 L 13.5-17.5 g/dL Sodium (Blood Gas) 141 136-145 MMOL/L Bedside Potassium (Blood Gas) 4.2 3.4-4.5 MMOL/L Bedside Chloride (Blood Gas) 108 H 98-107 MMOL/L Bedside Glucose (Blood Gas) 91 65-95 MG/DL Bedside Ionized Calcium (Blood Gas) 1.24 1.15-1.33 MMOL/L Bedside Lactic Acid (Blood Gas) 0.91 H 0.36-0.75 MMOL/L Blood Gas Temperature 37.0 35.5-37.0 CELSIUS Blood Gas Vent Mode RA ROOM AIR FiO2 21.0 % Blood Gas Specimen Comment [facility], [place] White Blood Count 9.2 # 4.8-10.8 K/uL Red Blood Count 2.93 L 4.50-6.20 MIL/uL Hemoglobin 8.8 L 14.0-18.0 g/dL Hematocrit 26.9 L 42-54 % Mean Corpuscular Volume 91.8 79-99 fL Mean Corpuscular Hemoglobin 30.0 27.0-33.0 pg Mean Corpuscular Hemoglobin Concent 32.7 32.0-36.0 g/dL Red Cell Distribution Width 14.1 11.0-15.5 % Platelet Count 199 130-400 K/uL Mean Platelet Volume 9.9 7.5-10.5 fL Immature Granulocyte % (Auto) 0.3 0-1 % Neutrophils (%) (Auto) 76.8 40.0-77.0 % Lymphocytes (%) (Auto) 15.2 L 21.0-51.0 % Monocytes (%) (Auto) 7.3 3.0-13.0 % Eosinophils (%) (Auto) 0.1 0.0-8.0 % Basophils (%) (Auto) 0.3 0.0-5.0 % Neutrophils # (Auto) 7.1 1.8-7.7 K/uL Lymphocytes # (Auto) 1.4 1.0-4.8 K/uL Monocytes # (Auto) 0.7 0.1-1.0 K/uL Eosinophils # (Auto) 0.01 0.00-0.70 K/uL Basophils # (Auto) 0.03 0.00-0.20 K/uL Absolute Immature Granulocyte (auto 0.03 0-1 K/uL Nucleated Red Blood Cells 0.0 0.0-0.19 % Prothrombin Time 11.9 H 9.6-11.6 SEC Prothromb Time International Ratio 1.14 0.85-1.15 Activated Partial Thromboplast Time 29.3 26.3-35.5 SEC Sodium Level 146 H 136-145 mmol/L Potassium Level 4.1 3.5-5.1 mmol/L Chloride Level 111 101-111 mmol/L Carbon Dioxide Level 29 21-32 mmol/L Blood Urea Nitrogen 12 7-18 mg/dL Creatinine 0.7 0.5-1.3 mg/dL Glomerular Filtration Rate Calc 118 >90 mL/min Random Glucose 90 70-105 mg/dL Total Calcium 8.6 # 8.5-10.1 mg/dL Ionized Calcium 1.20 1.15-1.33 MMOL/L Phosphorus Level 5.0 H 2.5-4.9 mg/dL Magnesium Level 1.80 1.80-2.40 mg/dL B-Type Natriuretic Peptide 206 H 0-100 pg/mL Blood Gas Flow-by 10.00 0.00-15.00 L/min Test 03/06/25 18:34 03/06/25 12:56 03/06/25 04:26 Range/Units Blood Gas Respiration Rate 6.0 min. Blood Gas Tidal Volume 500 ml Blood Gas PEEP 5 cm H2O Fibrinogen 196 180-350 mg/dL Hemoglobin A1c 10.3 H 4.0-6.0 % Estimated Average Glucose (eAG) 249 H 70-126 mg/dL Total Bilirubin 0.3 0.2-1.0 mg/dL Aspartate Amino Transf (AST/SGOT) 25 10-37 U/L Alanine Aminotransferase (ALT/SGPT) 21 12-78 U/L Alkaline Phosphatase 99 50-136 U/L Total Protein 6.3 6.0-8.3 g/dL Albumin 3.0 L 3.5-5.0 g/dL Triglycerides Level 84 30-200 mg/dL Cholesterol Level 130 <200 mg/dL LDL Cholesterol 62 0-99 mg/dL HDL Cholesterol 60 29-71 mg/dL Current Medications Medications (Trade) Dose Ordered Sig/Marva Route PRN Reason Start Time Stop Time Status Last Admin Dose Admin Acetaminophen (TYLenol 325MG TAB) 650 mg Q4H PRN PO Temp >38.3C(AFTER EXTUBATION) 03/06/25 10:00 04/05/25 09:59 Acetaminophen (TYLenol 325MG TAB) 650 mg Q6H PRN PO MILD PAIN (1-3) 03/03/25 18:00 03/06/25 10:18 DC Acetaminophen (TYLenol 325MG TAB) 650 mg Q6H PRN PO MILD PAIN (1-3) 03/06/25 10:00 04/05/25 09:59 Acetaminophen (TYLenol 650MG SUPPOSITORY) 650 mg Q4H PRN RC Temp >38.3C WHILE INTUBATED 03/06/25 10:00 04/05/25 09:59 Acetaminophen (acetaMINOPHEN) 1,000 mg Q6H6 IV 03/06/25 14:00 03/07/25 13:59 03/07/25 05:30 1,000 MG Albumin Human 250 ml @ 0 mls/hr AD PRN IV IF HEMODYNAMICALLY UNSTABLE 03/06/25 10:00 03/06/25 13:54 250 MLS/HR Aminocaproic Acid 92191 mg/Sodium Chloride 310 ml @ 25 mls/hr AD IV 03/06/25 10:00 03/06/25 10:13 DC Aminocaproic Acid 20253 mg/Sodium Chloride 480 ml @ 0 mls/hr AD PRN IV BLEEDING CONTROL 03/06/25 08:00 04/05/25 07:59 Amlodipine Besylate (NorvASC 5MG TAB) 5 mg Q24H PO 03/03/25 18:00 03/03/25 19:00 DC Amlodipine Besylate (NorvASC 5MG TAB) 5 mg Q24H PO 03/03/25 18:00 04/02/25 17:59 UNV Amlodipine Besylate (NorvASC 5MG TAB) 5 mg Q24H PO 03/03/25 19:30 03/06/25 09:48 DC 03/05/25 20:39 5 MG Aspirin (Aspirin 81mg Chew Tab) 81 mg DAILY PO 03/04/25 09:00 04/03/25 08:59 03/07/25 08:00 81 MG Atorvastatin Calcium (LIPItor 40MG) 40 mg HS PO 03/03/25 21:00 04/02/25 20:59 03/06/25 20:11 40 MG Calcium Gluconate 1 gm/Sodium Chloride 60 ml @ 200 mls/hr AD PRN IV HYPOCALCEMIA 03/06/25 10:00 04/05/25 09:59 Cefazolin Sodium (Ancef) 2 gm ONCALL IVP 03/05/25 23:30 03/06/25 09:52 DC Cefazolin Sodium (Ancef) 2 gm Q8H IVPB 03/06/25 15:00 03/07/25 07:01 DC 03/07/25 05:55 2 GM Dexmedetomidine/ Sodium Chloride (PRECEdex 400MCG/ 100ML-NS) 400 mcg PROTOCOL IV 03/06/25 10:00 03/07/25 09:59 Dextrose (D50w) 50 ml AD PRN IV HYPOGLYCEMIA PROTOCOL 03/03/25 18:00 03/06/25 10:19 DC Dextrose (D50w) 50 ml AD PRN IV HYPOGLYCEMIA PROTOCOL 03/06/25 10:00 04/05/25 09:59 Docusate Sodium (COLace 100MG CAP) 100 mg BID PO 03/06/25 21:00 04/05/25 20:59 03/07/25 07:58 100 MG Epinephrine HCl 10 mg/Sodium Chloride 250 ml @ 0 mls/hr AD PRN IV TITRATE 03/06/25 08:00 04/05/25 07:59 Epinephrine HCl 10 mg/Sodium Chloride 250 ml @ 0 mls/hr AD PRN IV POST-OP CARDIOVASCULAR ORDERS 03/06/25 10:00 03/06/25 10:13 DC Famotidine (Pepcid 20mg Vial) 20 mg BID IV 03/06/25 21:00 03/07/25 07:48 DC 03/06/25 20:11 20 MG Famotidine (Pepcid 20mg Tab) 20 mg BID PO 03/03/25 21:00 03/06/25 09:48 DC 03/05/25 20:39 20 MG Famotidine (Pepcid 20mg Tab) 20 mg BID PO 03/07/25 09:00 04/06/25 08:59 03/07/25 08:01 20 MG Furosemide (LASix 20MG TAB) 20 mg Q12H PO 03/08/25 09:00 04/07/25 08:59 Furosemide (LASix 20MG VIAL) 20 mg Q12H IV 03/07/25 09:00 03/08/25 08:59 03/07/25 08:00 20 MG Glucagon (Glucagon 1mg Kit) 1 mg AD PRN IM HYPOGLYCEMIA PROTOCOL 03/03/25 18:00 03/06/25 10:20 DC Glucagon (Glucagon 1mg Kit) 1 mg AD PRN IM HYPOGLYCEMIA PROTOCOL 03/06/25 10:00 04/05/25 09:59 Heparin Sodium (Porcine) (HEParin 5,000 UNIT VIAL) 5,000 unit AD IV 03/03/25 19:30 03/06/25 09:48 DC Heparin Sodium/ Dextrose 250 ml @ 0 mls/hr Q6H IV 03/03/25 18:30 03/06/25 09:48 DC 03/03/25 19:32 9.87 MLS/HR Insulin Glargine (LANtus 100 UNITS/ML 10 ML VIAL) 12 units HS SQ 03/03/25 21:00 03/06/25 09:48 DC 03/05/25 20:32 12 UNITS Insulin Human Regular (humuLIN R 100 UNIT/ML 3ML) INSULIN SLIDING SCAL... ACHS SQ 03/03/25 21:00 03/06/25 09:48 DC 03/05/25 20:31 3 UNIT Insulin Human Regular 100 unit/ Sodium Chloride 100 ml @ 0 mls/hr AD IV 03/06/25 10:00 03/08/25 09:59 03/06/25 13:16 1.5 MLS/HR Lactulose (Constulose 20gm/ 30ml Udcup) 20 gm BID PRN PO CONSTIPATION 03/06/25 10:00 04/05/25 09:59 Magnesium Hydroxide (Milk Of Magnesium 30ml) 30 ml DAILY PRN PO CONSTIPATION 03/06/25 10:00 04/05/25 09:59 Magnesium Sulfate 50 ml @ 12.5 mls/hr AD PRN IV MAG LEVEL LESS THAN 2.0 03/06/25 10:00 04/05/25 09:59 03/07/25 05:40 12.5 MLS/HR Morphine Sulfate (morPHINE 2MG SYG) 0.5 mg Q2H PRN IV MODERATE PAIN (4-6) 03/06/25 10:00 03/07/25 09:59 03/06/25 13:54 0.5 MG Morphine Sulfate (morPHINE 2MG SYG) 1 mg Q2H PRN IVP SEVERE PAIN (7-10) 03/06/25 10:30 03/13/25 10:29 Morphine Sulfate (morPHINE 2MG SYG) 2 mg Q6H PRN IVP SEVERE PAIN (7-10) 03/03/25 18:00 03/06/25 09:48 DC Nicardipine HCl 50 mg/Sodium Chloride 250 ml @ 0 mls/hr PROTOCOL IV 03/06/25 13:30 04/05/25 13:29 Nitroglycerin (Nitrostat) 0.4 mg AD PRN SL CHEST PAIN 03/03/25 18:00 03/06/25 09:48 DC Nitroglycerin/ Dextrose 0 ml @ 0 mls/hr AD IV 03/06/25 10:00 03/09/25 09:59 03/06/25 13:16 6 MLS/HR Norepinephrine Bitartrate 250 ml @ 0 mls/hr AD PRN IV TITRATE 03/06/25 08:00 04/05/25 07:59 Norepinephrine Bitartrate 8 mg/ Dextrose 250 ml @ 0 mls/hr AD PRN IV POST-OP CARDIOVASCULAR ORDERS 03/06/25 10:00 03/06/25 10:13 DC Ondansetron HCl (zoFRAN 4MG INJ) 4 mg Q6H PRN IV NAUSEA/VOMITING 03/06/25 10:00 04/05/25 09:59 03/07/25 09:19 4 MG Ondansetron HCl (zoFRAN 4MG INJ) 4 mg Q6H PRN IVP NAUSEA/VOMITING 03/03/25 18:00 03/06/25 10:20 DC Potassium Phosphate 250 ml @ 42 mls/hr AD PRN IV LOW PHOS LEVEL 03/06/25 10:00 04/05/25 09:59 Potassium Chloride 100 ml @ 100 mls/hr AD PRN IV HYPOKALEMIA 03/06/25 10:00 04/05/25 09:59 03/06/25 13:14 100 MLS/HR Propofol 100 ml @ 0 mls/hr AD PRN IV SEDATION 03/06/25 10:00 03/10/25 09:59 Sodium Bicarbonate (Sodium Bicarb 50meq 50ml Vial) 50 meq AD PRN IV OTHER[SEE DOSING INSTRUCTIONS] 03/06/25 10:00 03/09/25 09:59 Sodium Chloride 500 ml @ 0 mls/hr AD IV 03/06/25 10:00 04/05/25 09:59 Sodium Chloride 1,000 ml @ 10 mls/hr ONCE IV 03/06/25 10:00 03/07/25 09:59 03/06/25 13:17 10 MLS/HR Sodium Chloride (NS Flush 10ml) 10 ml Q8H PRN IVP IV LINE FLUSH 03/06/25 10:00 04/05/25 09:59 Tramadol HCl (UltRAM) 25 mg Q6H PRN PO MODERATE PAIN (4-6) 03/06/25 10:00 03/11/25 09:59 Tramadol HCl (UltRAM) 50 mg Q6H PRN PO SEVERE PAIN (7-10) 03/06/25 10:00 03/11/25 09:59 03/07/25 08:00 50 MG DIAGNOSTICS / RADIOLOGY: [ ] ASSESSMENT: NSTEMI, POA Status post coronary angiogram/[facility] with findings of severe multivessel coronary artery disease, POA 03/06/2025 status post CABG three-vessel disease Uncontrolled type 2 diabetes mellitus, POA Hypertension, POA Hyperlipidemia, POA Tobacco dependency POA Cocaine and alcohol abuse POA PLAN: Continue cardiac monitoring and supportive care. Surgery: CabgPOD 1, stable : will follow post operative recommendation:CV: Dr Elliott Continues with chest tube the CONSULT CRITICAL TEAM. [employer]ist's, CV Medication Lasix 20 mg IV every 12 hours. Physical therapy for evaluation and treatment Potassium and magnesium will be repleted per protocol Discussed with patient to quit/abstain from smoking, cocaine and synthetic marijuana use, patient verbalized understanding and showed willingness to quit Case discussed with Dr. Goff, above plan was formulated ATTESTATION BY PHYSICIAN I have seen and examined the patient. I reviewed the documentation, medical decision making, and treatment plan as noted by the mid-level provider above. I agree with the findings and plan of care. Lima Goff MD, ELIZABETH NP Mar 07, 2025 09:35
--- NOTE | 2025-03-07 14:00 | NUR ---
DR ROQUE ROUNDED ON THE PATIENT DR ROQUE WAS UPDATED OF PATIENT CONDITION AND GAVE ORDERS D/C CORONA, SWANZ AND ARTERIAL LINE START ON NICOTINE PATCH
--- NOTE | 2025-03-07 20:11 | PN ---
SUBJECTIVE: The patient is postop day #1 from an off-pump coronary artery bypass grafting. The patient is extubated and off all drips. OBJECTIVE: VITAL SIGNS: Temperature is 97.7. Blood pressure is 123/80. Pulse is 88, respirations are 19, oxygen saturations are 98% on nasal cannula oxygen. HEENT: Normocephalic, atraumatic. Extraocular movements are intact. He has a nasal cannula oxygen prongs under his nose. He has right cervical [place]Jorge catheter reading a cardiac index at 3.1 L per minute per meter squared. CHEST: His sternal wound is bandaged. His chest tubes are in place with 1200 mL of total output since the time of surgery yesterday. HEART: S1, S2 and regular. LUNGS: Mild rhonchi bilaterally. His sternal wound is bandaged. ABDOMEN: Mild obesity with positive bowel sounds. GENITOURINARY: He has Conn catheter in his bladder. EXTREMITIES: He has an Juan J wrap on his left lower extremity. LABORATORY DATA: His hemoglobin is 8.8. BUN is 12. Creatinine is 0.7. Chest x-ray shows mild edema. ASSESSMENT AND PLAN: * Status post coronary artery bypass grafting. Begin aspirin and IV Lasix. Keep chest tubes in place. Keep patient up out of bed as long as tolerated. * Postoperative acute pulmonary insufficiency secondary to thoracic surgery. Wean nasal cannula oxygen to maintain oxygen saturations greater than 90%. * Hypercholesterolemia. Begin Lipitor 40 mg p.o. at bedtime, low cholesterol, cardiac diet. * DVT prophylaxis. Place THOMAS stockings and SCDs on both lower extremities. Time spent 30 minutes. The patient is critically in the ICU. TID: [id number] RECEIPT: [id number]
--- NOTE | 2025-03-07 20:24 | HMCIMG ---
EXAM: CR Chest, 1 View. CLINICAL HISTORY: s/p CABG COMPARISON: None provided. FINDINGS: LUNGS: [place]-Jorge catheter main pulmonary artery PLEURAL SPACES: No pleural effusion or pneumothorax. MEDIASTINUM: Cardiac size and mediastinal contours within normal limits. BONES: No aggressive appearing osseous lesion seen. MISCELLANEOUS: Slight worsening lower lobe infiltrates Chest tube stable IMPRESSION: 1. Slight worsening lower lobe infiltrates 2. [place]-Jorge catheter main pulmonary artery 3. Chest tube stable /[place]
[2025-03-08] VITALS (19 sets, daily range): BP systolic 99–123; BP diastolic 57–77; PULSE 76–99; RESP 7–29; TEMP 98.1–99; O2SAT 94–99
[2025-03-08 03:32] LABS: IMMATURE GRANULOCYTE ABSOLUTE 0.06 K/uL (0-1); NUCLEATED RED BLOOD CELLS 0.0 % (0.0-0.19); PLATELET COUNT (AUTO) 167 K/uL (130-400); RED BLOOD CELL COUNT(AUTO) 2.71 MIL/uL (4.50-6.20); RED CELL DISTRIBUTION WIDTH 14.1 % (11.0-15.5); WHITE BLOOD COUNT (AUTO) 13.6 K/uL (4.8-10.8)
[2025-03-08 03:57] LABS: CREATININE 0.7 mg/dL (0.5-1.3); GLOMERULAR FILTR. RATE CALC 118.0 mL/min (>90); GLUCOSE,RANDOM 99.0 mg/dL (70-105); SODIUM SERUM 136.0 mmol/L (136-145); UREA NITROGEN, BLOOD 13.0 mg/dL (7-18)
--- NOTE | 2025-03-08 08:26 | PN ---
Non-STEMI late January 2025 Left main and three-vessel coronary disease Cocaine and alcohol abuse Tobacco abuse Status post coronary bypass Patient says chest pain has improved even though chest tubes are still in place. Denies shortness of breath, is smiling and cheerful. Unremarkable pulmonary exam, unremarkable cardiac exam, no edema, no focal neurologic deficits Impression and recommendation: Patient is stable, advance usual surgical protocols. May be ready for chest tube removal today Vitals/Labs Vital Signs Date Time Temp Pulse Resp B/P (MAP) Pulse Ox O2 Delivery O2 Flow Rate FiO2 03/08/25 06:00 93 7 114/75 96 03/08/25 04:00 Room Air* 0 21 03/08/25 04:00 98.2 Laboratory Tests 03/08/25 03:06 Medications Current Medications Insulin Human Regular INSULIN SLIDING SCAL... ACHS SQ Last administered on 03/05/25at 20:31; Start 03/03/25 at 21:00; Stop 03/06/25 at 09:48; Status DC Dextrose 50 ml AD PRN IV; Start 03/03/25 at 18:00; Stop 03/06/25 at 10:19; Status DC Glucagon 1 mg AD PRN IM; Start 03/03/25 at 18:00; Stop 03/06/25 at 10:20; Status DC Famotidine 20 mg BID PO Last administered on 03/05/25at 20:39; Start 03/03/25 at 21:00; Stop 03/06/25 at 09:48; Status DC Amlodipine Besylate 5 mg Q24H PO; Start 03/03/25 at 18:00; Stop 04/02/25 at 17:59; Status UNV Acetaminophen 650 mg Q6H PRN PO; Start 03/03/25 at 18:00; Stop 03/06/25 at 10:18; Status DC Nitroglycerin 0.4 mg AD PRN SL; Start 03/03/25 at 18:00; Stop 03/06/25 at 09:48; Status DC Ondansetron HCl 4 mg Q6H PRN IVP; Start 03/03/25 at 18:00; Stop 03/06/25 at 10:20; Status DC Atorvastatin Calcium 40 mg HS PO Last administered on 03/07/25at 20:15; Start 03/03/25 at 21:00; Stop 04/02/25 at 20:59 Amlodipine Besylate 5 mg Q24H PO; Start 03/03/25 at 18:00; Stop 03/03/25 at 19:00; Status DC Heparin Sodium/ Dextrose 250 ml @ 0 mls/hr Q6H IV Last administered on 03/03/25at 19:32; Start 03/03/25 at 18:30; Stop 03/06/25 at 09:48; Status DC Morphine Sulfate 2 mg Q6H PRN IVP; Start 03/03/25 at 18:00; Stop 03/06/25 at 09:48; Status DC Insulin Glargine 12 units HS SQ Last administered on 03/05/25at 20:32; Start 03/03/25 at 21:00; Stop 03/06/25 at 09:48; Status DC Aspirin 81 mg DAILY PO Last administered on 03/07/25at 08:00; Start 03/04/25 at 09:00; Stop 04/03/25 at 08:59 Amlodipine Besylate 5 mg Q24H PO Last administered on 03/05/25at 20:39; Start 03/03/25 at 19:30; Stop 03/06/25 at 09:48; Status DC Heparin Sodium (Porcine) 5,000 unit AD IV; Start 03/03/25 at 19:30; Stop 03/06/25 at 09:48; Status DC Heparin Sodium (Porcine) 2,000 unit ONCE ONCE IV Last administered on 03/04/25at 02:19; Start 03/04/25 at 02:00; Stop 03/04/25 at 02:04; Status DC Potassium Bicarbonate 50 meq ONCE ONCE PO Last administered on 03/04/25at 05:24; Start 03/04/25 at 05:30; Stop 03/04/25 at 05:31; Status DC Cefazolin Sodium 2 gm ONCALL IVP; Start 03/05/25 at 23:30; Stop 03/06/25 at 09:52; Status DC Cefazolin Sodium 1 gm STK-MED ONCE .ROUTE; Start 03/06/25 at 06:54; Stop 03/06/25 at 06:54; Status DC Heparin Sodium/ Sodium Chloride 500 ml @ As Directed STK-MED ONCE IV; Start 03/06/25 at 06:54; Stop 03/06/25 at 06:54; Status DC Papaverine HCl 60 mg STK-MED ONCE .ROUTE; Start 03/06/25 at 06:54; Stop 03/06/25 at 06:54; Status DC Epinephrine HCl 10 mg/Sodium Chloride 250 ml @ 0 mls/hr AD PRN IV; Start 03/06/25 at 08:00; Stop 04/05/25 at 07:59 Norepinephrine Bitartrate 250 ml @ 0 mls/hr AD PRN IV; Start 03/06/25 at 08:00; Stop 04/05/25 at 07:59 Aminocaproic Acid 07585 mg/Sodium Chloride 480 ml @ 0 mls/hr AD PRN IV; Start 03/06/25 at 08:00; Stop 04/05/25 at 07:59 Lidocaine HCl/ Dextrose 250 ml @ As Directed STK-MED ONCE IV; Start 03/06/25 at 09:08; Stop 03/06/25 at 09:08; Status DC Nitroglycerin/ Dextrose 1 ml @ As Directed STK-MED ONCE .ROUTE; Start 03/06/25 at 09:08; Stop 03/06/25 at 09:08; Status DC Protamine Sulfate 250 mg STK-MED ONCE IV; Start 03/06/25 at 09:19; Stop 03/06/25 at 09:19; Status DC Lidocaine HCl 100 mg STK-MED ONCE .ROUTE; Start 03/06/25 at 09:19; Stop 03/06/25 at 09:19; Status DC Heparin Sodium (Porcine) 10,000 unit STK-MED ONCE .ROUTE; Start 03/06/25 at 09:19; Stop 03/06/25 at 09:19; Status DC Epinephrine HCl 1 mg STK-MED ONCE .ROUTE; Start 03/06/25 at 09:19; Stop 03/06/25 at 09:19; Status DC Sodium Bicarbonate 200 ml @ As Directed STK-MED ONCE .ROUTE; Start 03/06/25 at 09:19; Stop 03/06/25 at 09:19; Status DC Norepinephrine Bitartrate 4 mg STK-MED ONCE IV; Start 03/06/25 at 09:19; Stop 03/06/25 at 09:19; Status DC Fentanyl Citrate 1,000 mcg STK-MED ONCE IJ; Start 03/06/25 at 09:19; Stop 03/06/25 at 09:20; Status DC Propofol 200 mg STK-MED ONCE IV; Start 03/06/25 at 09:20; Stop 03/06/25 at 09:20; Status DC Midazolam HCl 2 mg STK-MED ONCE .ROUTE; Start 03/06/25 at 09:20; Stop 03/06/25 at 09:20; Status DC Rocuronium Alleman 50 mg STK-MED ONCE .ROUTE; Start 03/06/25 at 09:20; Stop 03/06/25 at 09:20; Status DC Acetaminophen 1,000 mg Q6H6 IV Last administered on 03/07/25at 12:15; Start 03/06/25 at 14:00; Stop 03/07/25 at 13:59; Status DC Aspirin 81 mg ONCE ONCE NG Last administered on 03/06/25at 20:18; Start 03/06/25 at 14:00; Stop 03/06/25 at 14:01; Status DC Docusate Sodium 100 mg BID PO Last administered on 03/07/25at 20:15; Start 03/06/25 at 21:00; Stop 04/05/25 at 20:59 Lactulose 20 gm BID PRN PO; Start 03/06/25 at 10:00; Stop 04/05/25 at 09:59 Furosemide 20 mg Q12H PO; Start 03/08/25 at 09:00; Stop 04/07/25 at 08:59 Furosemide 20 mg Q12H IV Last administered on 03/07/25at 20:15; Start 03/07/25 at 09:00; Stop 03/08/25 at 08:59 Magnesium Hydroxide 30 ml DAILY PRN PO; Start 03/06/25 at 10:00; Stop 04/05/25 at 09:59 Dexmedetomidine/ Sodium Chloride 400 mcg PROTOCOL IV; Start 03/06/25 at 10:00; Stop 03/07/25 at 09:59; Status DC Acetaminophen 650 mg Q6H PRN PO Last administered on 03/07/25at 20:14; Start 03/06/25 at 10:00; Stop 04/05/25 at 09:59 Sodium Chloride 1,000 ml @ 10 mls/hr ONCE IV Last administered on 03/06/25at 13:17; Start 03/06/25 at 10:00; Stop 03/07/25 at 09:59; Status DC Sodium Chloride 10 ml Q8H PRN IVP; Start 03/06/25 at 10:00; Stop 04/05/25 at 09:59 Morphine Sulfate 0.5 mg Q2H PRN IV Last administered on 03/06/25at 13:54; Start 03/06/25 at 10:00; Stop 03/07/25 at 09:59; Status DC Morphine Sulfate 1 mg Q2H PRN IVP; Start 03/06/25 at 10:30; Stop 03/13/25 at 10:29 Acetaminophen 650 mg Q4H PRN RC; Start 03/06/25 at 10:00; Stop 04/05/25 at 09:59 Ondansetron HCl 4 mg Q6H PRN IV Last administered on 03/07/25at 09:19; Start 03/06/25 at 10:00; Stop 04/05/25 at 09:59 Sodium Chloride 500 ml @ 0 mls/hr AD IV; Start 03/06/25 at 10:00; Stop 04/05/25 at 09:59 Nitroglycerin/ Dextrose 0 ml @ 0 mls/hr AD IV Last administered on 03/06/25at 13:16; Start 03/06/25 at 10:00; Stop 03/09/25 at 09:59 Propofol 100 ml @ 0 mls/hr AD PRN IV; Start 03/06/25 at 10:00; Stop 03/10/25 at 09:59 Norepinephrine Bitartrate 8 mg/ Dextrose 250 ml @ 0 mls/hr AD PRN IV; Start 03/06/25 at 10:00; Stop 03/06/25 at 10:13; Status DC Epinephrine HCl 10 mg/Sodium Chloride 250 ml @ 0 mls/hr AD PRN IV; Start 03/06/25 at 10:00; Stop 03/06/25 at 10:13; Status DC Aminocaproic Acid 53753 mg/Sodium Chloride 310 ml @ 25 mls/hr AD IV; Start 03/06/25 at 10:00; Stop 03/06/25 at 10:13; Status DC Calcium Gluconate 1 gm/Sodium Chloride 60 ml @ 200 mls/hr AD PRN IV; Start 03/06/25 at 10:00; Stop 04/05/25 at 09:59 Magnesium Sulfate 50 ml @ 12.5 mls/hr AD PRN IV Last administered on 03/08/25at 06:17; Start 03/06/25 at 10:00; Stop 04/05/25 at 09:59 Potassium Chloride 100 ml @ 100 mls/hr AD PRN IV Last administered on 03/06/25at 13:14; Start 03/06/25 at 10:00; Stop 04/05/25 at 09:59 Potassium Phosphate 250 ml @ 42 mls/hr AD PRN IV; Start 03/06/25 at 10:00; Stop 04/05/25 at 09:59 Albumin Human 250 ml @ 0 mls/hr AD PRN IV Last administered on 03/07/25at 10:38; Start 03/06/25 at 10:00 Acetaminophen 650 mg Q4H PRN PO; Start 03/06/25 at 10:00; Stop 04/05/25 at 09:59 Insulin Human Regular 100 unit/ Sodium Chloride 100 ml @ 0 mls/hr AD IV Last administered on 03/06/25at 13:16; Start 03/06/25 at 10:00; Stop 03/08/25 at 09:59 Cefazolin Sodium 2 gm Q8H IVPB Last administered on 03/07/25at 05:55; Start 03/06/25 at 15:00; Stop 03/07/25 at 07:01; Status DC Tramadol HCl 25 mg Q6H PRN PO; Start 03/06/25 at 10:00; Stop 03/11/25 at 09:59 Tramadol HCl 50 mg Q6H PRN PO Last administered on 03/08/25at 04:28; Start 03/06/25 at 10:00; Stop 03/11/25 at 09:59 Famotidine 20 mg BID IV Last administered on 03/06/25at 20:11; Start 03/06/25 at 21:00; Stop 03/07/25 at 07:48; Status DC Sodium Bicarbonate 50 meq AD PRN IV; Start 03/06/25 at 10:00; Stop 03/09/25 at 09:59 Dextrose 50 ml AD PRN IV; Start 03/06/25 at 10:00; Stop 04/05/25 at 09:59 Glucagon 1 mg AD PRN IM; Start 03/06/25 at 10:00; Stop 04/05/25 at 09:59 Amiodarone HCl 150 mg STK-MED ONCE .ROUTE; Start 03/06/25 at 10:27; Stop 03/06/25 at 10:28; Status DC Amiodarone HCl 150 mg STK-MED ONCE .ROUTE; Start 03/06/25 at 10:31; Stop 03/06/25 at 10:31; Status DC Lidocaine HCl 100 mg STK-MED ONCE .ROUTE; Start 03/06/25 at 10:31; Stop 03/06/25 at 10:31; Status DC Heparin Sodium (Porcine) 10,000 unit STK-MED ONCE .ROUTE; Start 03/06/25 at 10:31; Stop 03/06/25 at 10:31; Status DC Cefazolin Sodium 2 gm STK-MED ONCE IVPB Last administered on 03/06/25at 09:45; Start 03/06/25 at 09:45; Stop 03/06/25 at 11:16; Status DC Papaverine HCl 60 mg STK-MED ONCE IRRIG Last administered on 03/06/25at 09:17; Start 03/06/25 at 09:17; Stop 03/06/25 at 11:16; Status DC Cefazolin Sodium 1 gm STK-MED ONCE IRRIG Last administered on 03/06/25at 09:17; Start 03/06/25 at 09:17; Stop 03/06/25 at 11:16; Status DC Heparin Sodium (Porcine) 10,000 unit STK-MED ONCE .ROUTE; Start 03/06/25 at 11:12; Stop 03/06/25 at 11:12; Status DC Albumin Human 500 ml @ As Directed STK-MED ONCE IV; Start 03/06/25 at 11:59; Stop 03/06/25 at 12:00; Status DC Fentanyl Citrate 250 mcg STK-MED ONCE IV; Start 03/06/25 at 12:26; Stop 03/06/25 at 12:27; Status DC Nicardipine HCl 50 mg/Sodium Chloride 250 ml @ 0 mls/hr PROTOCOL IV; Start 03/06/25 at 13:30; Stop 04/05/25 at 13:29 Famotidine 20 mg BID PO Last administered on 03/07/25at 20:14; Start 03/07/25 at 09:00; Stop 04/06/25 at 08:59 Nicotine 7 mg DAILY TD; Start 03/08/25 at 09:00; Stop 04/07/25 at 08:59 Insulin Human Regular INSULIN SLIDING SCAL... ACHS SQ; Start 03/08/25 at 07:30; Stop 04/07/25 at 07:29 MIGNON GALINDO MD Mar 08, 2025 08:26
--- NOTE | 2025-03-08 09:23 | PN ---
[facility] PROGRESS NOTE Date of Service: Mar 08, 2025 Time of Service: 09:20 SUBJECTIVE: [Patient was followed up today in room 227. Denies any chest pain at this time. Evaluation for multivessel bypass is planned; cardiothoracic surgeon consult is still pending. 2D echocardiogram performed yesterday showed LVEF of 55% with basal, mild, and apical inferior hypokinesia. Trace mitral valve regurgitation noted. Otherwise, patient has no complaints. Will await further recommendations from consulting services. 03/06/25 The patient is scheduled for surgery today: Coronary Artery bypass grafting today per Dr Elliott PATIENT WILL BE GOING TO ICU POST SURGERY ROOM 213. WE WILL BRING IN CRITICAL TEAM WHILE PATIENT IS IN ICU. 03/07/25 status post CABG day one. Off drips on room air. Patient out of bed to chair recuperating well. Has chest tube Primary nurse reports no events overnight. 03/08/25 S/p Cabg day #2 recuperating well. Sitting in recliner chest tube was removed this morning. Patient denies chest pain or shortness for breath. PT is working with patient. REVIEW OF SYSTEMS CONSTITUTIONAL: Denies fevers, chills, or night sweats. reports having had weight loss of about 100 lbs in the last one year NEUROLOGICAL: Denies headache, amaurosis fugax, motor weakness, sensory deficit, vertigo/spinning sensation, gait abnormalities, or tremors. ENT: No hearing loss, otalgia, otorrhea, rhinitis, rhinorrhea, hoarseness, or sore throat. CARDIOVASCULAR: chest pain about a week ago PULMONARY: Denies any shortness of breath, cough, phlegm/sputum, hemoptysis, pleuritic chest pain. SLEEP: Denies morning headaches, daytime somnolence or napping. Denies difficulty falling asleep, staying asleep, waking from sleep. Denies knowledge of snoring. GASTROINTESTINAL: Denies any type of dysphagia to either liquids or solids. Denies nausea, vomiting, pyrosis, early satiety, abdominal pain, diarrhea, constipation, or changes in stool consistency or caliber. Denies coffee-ground emesis, hematemesis, hematochezia, or melanotic stools. GENITOURINARY: Denies frequency, urgency, nocturia, hematuria or incontinence (Storage/Irritative symptoms.) Low urinary stream, straining to void, urinary intermittency or hesitancy, splitting of the voiding stream, terminal dribbling. ENDOCRINOLOGIC: Denies polyuria, polydipsia, polyphagia or heat/cold intolerances. HEMATOLOGIC: Denies thrombophilia/previous clots, or coagulopathy/bleeding disorders. ONCOLOGIC: Denies personal history of malignancy. DERMATOLOGIC: Denies rashes or pruritus. PSYCHIATRIC: Denies any suicidal or homicidal ideation. Denies hallucinations. PHYSICAL EXAM GENERAL APPEARANCE: The patient is awake, alert, and oriented, in no acute cardiopulmonary distress. NEUROLOGICAL: Cranial nerves II-XII grossly intact. Neurological examination is nonfocal and patient is moving upper and lower extremities with no focal deficits HEENT: Face is symmetric. Pupils are equal and reactive. Extraocular movements are intact. NECK: Supple. No JVD. No thyromegaly. No submental, submandibular, pre- /postauricular, occipital or supraclavicular lymphadenopathy. CHEST: Normal chest expansion. No Telemetry. LUNGS: Absence of any rales, rhonchi or any wheezing. CARDIOVASCULAR: Regular. S1 and S2 normal. No appreciable rubs, murmurs or gallops. ABDOMEN: Soft, nontender, and nondistended. There is no rebound, voluntary guarding, or rigidity. : Deferred. No Conn. EXTREMITIES: Non-edematous and not cyanotic. No clubbing. Good capillary refill. SKIN: No skin breakdown. Vital Signs (last 8hr) Date Time Temp Pulse Resp B/P (MAP) Pulse Ox O2 Delivery O2 Flow Rate FiO2 03/08/25 06:00 93 7 114/75 96 03/08/25 05:00 93 28 122/77 95 03/08/25 04:00 99 Room Air* 0 21 03/08/25 04:00 98.2 94 24 116/72 95 Room Air 03/08/25 03:00 96 21 115/73 95 Room Air 03/08/25 02:00 96 16 113/57 95 Room Air LABS: Laboratory: Test 03/08/25 06:07 03/08/25 03:06 03/07/25 04:24 03/07/25 03:50 Range/Units Whole Blood Glucose 122 H 70-110 MG/DL White Blood Count 13.6 #H 4.8-10.8 K/uL Red Blood Count 2.71 L 4.50-6.20 MIL/uL Hemoglobin 8.3 L 14.0-18.0 g/dL Hematocrit 25.4 L 42-54 % Mean Corpuscular Volume 93.7 79-99 fL Mean Corpuscular Hemoglobin 30.6 27.0-33.0 pg Mean Corpuscular Hemoglobin Concent 32.7 32.0-36.0 g/dL Red Cell Distribution Width 14.1 11.0-15.5 % Platelet Count 167 130-400 K/uL Mean Platelet Volume 9.9 7.5-10.5 fL Immature Granulocyte % (Auto) 0.4 0-1 % Neutrophils (%) (Auto) 78.8 H 40.0-77.0 % Lymphocytes (%) (Auto) 13.0 L 21.0-51.0 % Monocytes (%) (Auto) 7.4 3.0-13.0 % Eosinophils (%) (Auto) 0.3 0.0-8.0 % Basophils (%) (Auto) 0.1 0.0-5.0 % Neutrophils # (Auto) 10.7 H 1.8-7.7 K/uL Lymphocytes # (Auto) 1.8 1.0-4.8 K/uL Monocytes # (Auto) 1.0 0.1-1.0 K/uL Eosinophils # (Auto) 0.04 0.00-0.70 K/uL Basophils # (Auto) 0.02 0.00-0.20 K/uL Absolute Immature Granulocyte (auto 0.06 0-1 K/uL Nucleated Red Blood Cells 0.0 0.0-0.19 % Sodium Level 136 136-145 mmol/L Potassium Level 3.9 3.5-5.1 mmol/L Chloride Level 100 L 101-111 mmol/L Carbon Dioxide Level 32 21-32 mmol/L Blood Urea Nitrogen 13 7-18 mg/dL Creatinine 0.7 0.5-1.3 mg/dL Glomerular Filtration Rate Calc 118 >90 mL/min Random Glucose 99 70-105 mg/dL Total Calcium 8.6 8.5-10.1 mg/dL Magnesium Level 1.70 L 1.80-2.40 mg/dL Blood Gas Specimen Type Arterial Arterial Blood pH 7.450 7.350-7.450 Arterial Blood Partial Pressure CO2 38 35-48 mmHg Arterial Blood Partial Pressure O2 75.0 L 83.0-108.0 mmHg Arterial Blood HCO3 25.9 21.0-28.0 mmol/L Arterial Blood Oxygen Saturation 94.6 94.0-98.0 % Arterial Blood Base Excess 1.9 -2.0-3.0 mmol/L Hemoglobin (Blood Gas) 10.0 L 13.5-17.5 g/dL Sodium (Blood Gas) 141 136-145 MMOL/L Bedside Potassium (Blood Gas) 4.2 3.4-4.5 MMOL/L Bedside Chloride (Blood Gas) 108 H 98-107 MMOL/L Bedside Glucose (Blood Gas) 91 65-95 MG/DL Bedside Ionized Calcium (Blood Gas) 1.24 1.15-1.33 MMOL/L Bedside Lactic Acid (Blood Gas) 0.91 H 0.36-0.75 MMOL/L Blood Gas Temperature 37.0 35.5-37.0 CELSIUS Blood Gas Vent Mode RA ROOM AIR FiO2 21.0 % Blood Gas Specimen Comment RAFAEL RN, AL Prothrombin Time 11.9 H 9.6-11.6 SEC Prothromb Time International Ratio 1.14 0.85-1.15 Activated Partial Thromboplast Time 29.3 26.3-35.5 SEC Ionized Calcium 1.20 1.15-1.33 MMOL/L Phosphorus Level 5.0 H 2.5-4.9 mg/dL B-Type Natriuretic Peptide 206 H 0-100 pg/mL Test 03/06/25 19:49 03/06/25 18:34 03/06/25 12:56 Range/Units Blood Gas Flow-by 10.00 0.00-15.00 L/min Blood Gas Respiration Rate 6.0 min. Blood Gas Tidal Volume 500 ml Blood Gas PEEP 5 cm H2O Fibrinogen 196 180-350 mg/dL Current Medications Medications (Trade) Dose Ordered Sig/Marva Route PRN Reason Start Time Stop Time Status Last Admin Dose Admin Acetaminophen (TYLenol 325MG TAB) 650 mg Q4H PRN PO Temp >38.3C(AFTER EXTUBATION) 03/06/25 10:00 04/05/25 09:59 Acetaminophen (TYLenol 325MG TAB) 650 mg Q6H PRN PO MILD PAIN (1-3) 03/03/25 18:00 03/06/25 10:18 DC Acetaminophen (TYLenol 325MG TAB) 650 mg Q6H PRN PO MILD PAIN (1-3) 03/06/25 10:00 04/05/25 09:59 03/07/25 20:14 650 MG Acetaminophen (TYLenol 650MG SUPPOSITORY) 650 mg Q4H PRN RC Temp >38.3C WHILE INTUBATED 03/06/25 10:00 04/05/25 09:59 Acetaminophen (acetaMINOPHEN) 1,000 mg Q6H6 IV 03/06/25 14:00 03/07/25 13:59 DC 03/07/25 12:15 1,000 MG Albumin Human 250 ml @ 0 mls/hr AD PRN IV IF HEMODYNAMICALLY UNSTABLE 03/06/25 10:00 03/07/25 10:38 100 MLS/HR Aminocaproic Acid 60015 mg/Sodium Chloride 310 ml @ 25 mls/hr AD IV 03/06/25 10:00 03/06/25 10:13 DC Aminocaproic Acid 56313 mg/Sodium Chloride 480 ml @ 0 mls/hr AD PRN IV BLEEDING CONTROL 03/06/25 08:00 04/05/25 07:59 Amlodipine Besylate (NorvASC 5MG TAB) 5 mg Q24H PO 03/03/25 18:00 03/03/25 19:00 DC Amlodipine Besylate (NorvASC 5MG TAB) 5 mg Q24H PO 03/03/25 18:00 04/02/25 17:59 UNV Amlodipine Besylate (NorvASC 5MG TAB) 5 mg Q24H PO 03/03/25 19:30 03/06/25 09:48 DC 03/05/25 20:39 5 MG Aspirin (Aspirin 81mg Chew Tab) 81 mg DAILY PO 03/04/25 09:00 04/03/25 08:59 03/07/25 08:00 81 MG Atorvastatin Calcium (LIPItor 40MG) 40 mg HS PO 03/03/25 21:00 04/02/25 20:59 03/07/25 20:15 40 MG Calcium Gluconate 1 gm/Sodium Chloride 60 ml @ 200 mls/hr AD PRN IV HYPOCALCEMIA 03/06/25 10:00 04/05/25 09:59 Cefazolin Sodium (Ancef) 2 gm ONCALL IVP 03/05/25 23:30 03/06/25 09:52 DC Cefazolin Sodium (Ancef) 2 gm Q8H IVPB 03/06/25 15:00 03/07/25 07:01 DC 03/07/25 05:55 2 GM Dexmedetomidine/ Sodium Chloride (PRECEdex 400MCG/ 100ML-NS) 400 mcg PROTOCOL IV 03/06/25 10:00 03/07/25 09:59 DC Dextrose (D50w) 50 ml AD PRN IV HYPOGLYCEMIA PROTOCOL 03/03/25 18:00 03/06/25 10:19 DC Dextrose (D50w) 50 ml AD PRN IV HYPOGLYCEMIA PROTOCOL 03/06/25 10:00 04/05/25 09:59 Docusate Sodium (COLace 100MG CAP) 100 mg BID PO 03/06/25 21:00 04/05/25 20:59 03/07/25 20:15 100 MG Enoxaparin Sodium (Lovenox) 30 mg DAILY SQ 03/08/25 09:30 04/07/25 09:29 Epinephrine HCl 10 mg/Sodium Chloride 250 ml @ 0 mls/hr AD PRN IV TITRATE 03/06/25 08:00 04/05/25 07:59 Epinephrine HCl 10 mg/Sodium Chloride 250 ml @ 0 mls/hr AD PRN IV POST-OP CARDIOVASCULAR ORDERS 03/06/25 10:00 03/06/25 10:13 DC Famotidine (Pepcid 20mg Vial) 20 mg BID IV 03/06/25 21:00 03/07/25 07:48 DC 03/06/25 20:11 20 MG Famotidine (Pepcid 20mg Tab) 20 mg BID PO 03/03/25 21:00 03/06/25 09:48 DC 03/05/25 20:39 20 MG Famotidine (Pepcid 20mg Tab) 20 mg BID PO 03/07/25 09:00 04/06/25 08:59 03/07/25 20:14 20 MG Furosemide (LASix 20MG TAB) 20 mg Q12H PO 03/08/25 09:00 04/07/25 08:59 Furosemide (LASix 20MG VIAL) 20 mg Q12H IV 03/07/25 09:00 03/08/25 08:59 DC 03/07/25 20:15 20 MG Glucagon (Glucagon 1mg Kit) 1 mg AD PRN IM HYPOGLYCEMIA PROTOCOL 03/03/25 18:00 03/06/25 10:20 DC Glucagon (Glucagon 1mg Kit) 1 mg AD PRN IM HYPOGLYCEMIA PROTOCOL 03/06/25 10:00 04/05/25 09:59 Heparin Sodium (Porcine) (HEParin 5,000 UNIT VIAL) 5,000 unit AD IV 03/03/25 19:30 03/06/25 09:48 DC Heparin Sodium/ Dextrose 250 ml @ 0 mls/hr Q6H IV 03/03/25 18:30 03/06/25 09:48 DC 03/03/25 19:32 9.87 MLS/HR Insulin Glargine (LANtus 100 UNITS/ML 10 ML VIAL) 12 units HS SQ 03/03/25 21:00 03/06/25 09:48 DC 03/05/25 20:32 12 UNITS Insulin Human Regular (humuLIN R 100 UNIT/ML 3ML) INSULIN SLIDING SCAL... ACHS SQ 03/03/25 21:00 03/06/25 09:48 DC 03/05/25 20:31 3 UNIT Insulin Human Regular (humuLIN R 100 UNIT/ML 3ML) INSULIN SLIDING SCAL... ACHS SQ 03/08/25 07:30 04/07/25 07:29 Insulin Human Regular 100 unit/ Sodium Chloride 100 ml @ 0 mls/hr AD IV 03/06/25 10:00 03/08/25 09:59 03/06/25 13:16 1.5 MLS/HR Lactulose (Constulose 20gm/ 30ml Udcup) 20 gm BID PRN PO CONSTIPATION 03/06/25 10:00 04/05/25 09:59 Magnesium Hydroxide (Milk Of Magnesium 30ml) 30 ml DAILY PRN PO CONSTIPATION 03/06/25 10:00 04/05/25 09:59 Magnesium Sulfate 50 ml @ 12.5 mls/hr AD PRN IV MAG LEVEL LESS THAN 2.0 03/06/25 10:00 04/05/25 09:59 03/08/25 06:17 12.5 MLS/HR Metoprolol Tartrate (loprESSOR) 12.5 mg BID PO 03/08/25 09:30 04/07/25 09:29 Morphine Sulfate (morPHINE 2MG SYG) 0.5 mg Q2H PRN IV MODERATE PAIN (4-6) 03/06/25 10:00 03/07/25 09:59 DC 03/06/25 13:54 0.5 MG Morphine Sulfate (morPHINE 2MG SYG) 1 mg Q2H PRN IVP SEVERE PAIN (7-10) 03/06/25 10:30 03/13/25 10:29 Morphine Sulfate (morPHINE 2MG SYG) 2 mg Q6H PRN IVP SEVERE PAIN (7-10) 03/03/25 18:00 03/06/25 09:48 DC Nicardipine HCl 50 mg/Sodium Chloride 250 ml @ 0 mls/hr PROTOCOL IV 03/06/25 13:30 04/05/25 13:29 Nicotine (Nicoderm) 7 mg DAILY TD 03/08/25 09:00 04/07/25 08:59 Nitroglycerin (Nitrostat) 0.4 mg AD PRN SL CHEST PAIN 03/03/25 18:00 03/06/25 09:48 DC Nitroglycerin/ Dextrose 0 ml @ 0 mls/hr AD IV 03/06/25 10:00 03/09/25 09:59 03/06/25 13:16 6 MLS/HR Norepinephrine Bitartrate 250 ml @ 0 mls/hr AD PRN IV TITRATE 03/06/25 08:00 04/05/25 07:59 Norepinephrine Bitartrate 8 mg/ Dextrose 250 ml @ 0 mls/hr AD PRN IV POST-OP CARDIOVASCULAR ORDERS 03/06/25 10:00 03/06/25 10:13 DC Ondansetron HCl (zoFRAN 4MG INJ) 4 mg Q6H PRN IV NAUSEA/VOMITING 03/06/25 10:00 04/05/25 09:59 03/07/25 09:19 4 MG Ondansetron HCl (zoFRAN 4MG INJ) 4 mg Q6H PRN IVP NAUSEA/VOMITING 03/03/25 18:00 03/06/25 10:20 DC Potassium Phosphate 250 ml @ 42 mls/hr AD PRN IV LOW PHOS LEVEL 03/06/25 10:00 04/05/25 09:59 Potassium Chloride 100 ml @ 100 mls/hr AD PRN IV HYPOKALEMIA 03/06/25 10:00 04/05/25 09:59 03/06/25 13:14 100 MLS/HR Propofol 100 ml @ 0 mls/hr AD PRN IV SEDATION 03/06/25 10:00 03/10/25 09:59 Sodium Bicarbonate (Sodium Bicarb 50meq 50ml Vial) 50 meq AD PRN IV OTHER[SEE DOSING INSTRUCTIONS] 03/06/25 10:00 03/09/25 09:59 Sodium Chloride 500 ml @ 0 mls/hr AD IV 03/06/25 10:00 04/05/25 09:59 Sodium Chloride 1,000 ml @ 10 mls/hr ONCE IV 03/06/25 10:00 03/07/25 09:59 DC 03/06/25 13:17 10 MLS/HR Sodium Chloride (NS Flush 10ml) 10 ml Q8H PRN IVP IV LINE FLUSH 03/06/25 10:00 04/05/25 09:59 Tramadol HCl (UltRAM) 25 mg Q6H PRN PO MODERATE PAIN (4-6) 03/06/25 10:00 03/11/25 09:59 Tramadol HCl (UltRAM) 50 mg Q6H PRN PO SEVERE PAIN (7-10) 03/06/25 10:00 03/11/25 09:59 03/08/25 04:28 50 MG DIAGNOSTICS / RADIOLOGY: [ ] ASSESSMENT: NSTEMI, POA Status post coronary angiogram/LHC with findings of severe multivessel coronary artery disease, POA 03/06/2025 status post CABG three-vessel disease Uncontrolled type 2 diabetes mellitus, POA Hypertension, POA Hyperlipidemia, POA Tobacco dependency POA Cocaine and alcohol abuse POA PLAN: Continue cardiac monitoring and supportive care. Surgery: CabgPOD 2, stable : will follow post operative recommendation:CV: Dr Elliott Chest tube removed: encouraged to use IS while awake s/p CABG: continue with Metoprolol 12.5 mg bid, Lasix 20 mg IV q 12 hr continue with ASA, and Statin therapy Sternal precaution PT services continue/ fall precaution Potassium and magnesium will be repleted per protocol smoking cessation: Nicotine patch Case discussed with Dr. Goff, above plan was formulated ATTESTATION BY PHYSICIAN I have seen and examined the patient. I reviewed the documentation, medical decision making, and treatment plan as noted by the mid-level provider above. I agree with the findings and plan of care. BhadLima palm MD, ELIZABETH NP Mar 08, 2025 09:23
[2025-03-08] MEDS: NICOTINE 7 MG/ 24 HR PATCH TD SCH (10:04)
--- NOTE | 2025-03-08 10:21 | EKG ---
[facility] Test Date: 2025-03-06 Test Time: 12:59:35 Pat Name: LUMA JOY Department: [facility] Room: 204 Gender: M Rn Community: [place] : 1980 Requested By: DILCIA ROQUE Order Number: [id number] Reading MD: Sam Yang Measurements Intervals [place] Rate: 96 P: 84 ND: 132 QRS: 96 QRSD: 118 T: -27 QT: 378 QTc: 477 Interpretive Statements Sinus rhythm Probable left atrial enlargement Nonspecific intraventricular conduction delay Compared to ECG 03/06/2025 05:58:36 T-wave abnormality no longer present Electronically Signed On 03-11-2025 19:45:51 CDT by Sam Yang Please click the below link to view image of tracing.
[2025-03-08] MEDS: ENOXAPARIN SODIUM 30 MG/0.3 ML SQ SCH (10:37)
--- NOTE | 2025-03-08 13:35 | NUR ---
[facility] ICU Skin Assessment: Patient assessed by wound healing team. Patient up in chair. Per primary nurse, patient with no wounds or skin breakdown noted. Assessment and recommendations provided to primary nurse. Education provided. Addendum: 03/08/25 at 1355 by ANKUR SHAW RN RN/ Amended: Links added.
--- NOTE | 2025-03-08 16:38 | HMCIMG ---
EXAM: CR Chest, 1 View. CLINICAL HISTORY: s/p CABG COMPARISON: X-ray chest 03/06/2025 FINDINGS: Interval removal of right Mittie-Jorge catheter. Stable position of right jugular central venous catheter. Changes of median sternotomy. Persistent haziness projects over the lower lungs. No pneumothorax. MEDIASTINUM: The cardiomediastinal silhouette is within normal limits. BONES: No aggressive appearing osseous lesion seen. IMPRESSION: 1. Interval removal of right Mittie-Jorge catheter 2. Status post median sternotomy with unchanged bibasilar opacities likely layering pleural effusions unchanged. 3. Stable position of right jugular central venous catheter. /[place]
--- NOTE | 2025-03-08 17:09 | PN ---
SUBJECTIVE: The patient is postop day #2 from an off-pump coronary artery bypass grafting. The patient is doing well sitting up in a bedside chair in the ICU. OBJECTIVE: VITAL SIGNS: Reveal pulse of 95, blood pressure 110/65, respirations 23, oxygen saturation 96% on nasal cannula oxygen. HEENT: Reveals normocephalic, atraumatic. Extraocular movements intact. He has nasal cannula oxygen prongs under his nose. He has a right cervical Cordis introducer. CHEST: His sternal wound is bandaged. Chest tubes are in place with 100 mL of output over the last 24 hours. ABDOMEN: Flat. GENITOURINARY: His Conn has been removed. EXTREMITIES: He has SCDs and THOMAS stockings on his lower extremities. ASSESSMENT AND PLAN: * Status post coronary artery bypass grafting. We will discontinue his chest tubes and his Cordis introducer. Continue aspirin and Lasix. Begin metoprolol twice a day. * Postoperative acute pulmonary insufficiency. Wean nasal cannula oxygen, maintain oxygen saturation greater than 90% on room air. Encourage incentive spirometry. Encourage ambulation. * Hypercholesterolemia. Lipitor at bedtime, low cholesterol, cardiac diet. * DVT prophylaxis. We will begin Lovenox 30 mg subcutaneous daily. TID: [id number] RECEIPT: [id number]
--- NOTE | 2025-03-08 20:56 | PN ---
[facility] PROGRESS NOTE Date Patient Seen: Mar 08, 2025 Time of Visit: 20:54 Supervising Physician: Dr Nascimento Primary Care Physician: Claudia Referral Outpatient Specialists: [ ] Inpatient Consults: Dr Van, Dr Griffin, Dr Horn Attending: [facility] Team PROBLEM LIST: CABG X 3 (PARK to LAD, RSVG to the 1st obtuse marginal coronary artery, RSVG from the aorta to the PDA) on 03/06/25 NSTEMI, POA LHC with findings of severe multivessel coronary artery disease, POA LVEF of 55% on 03/04/25 History of tobacco use disorder, POA History of polysubstance abuse with cocaine and synthetic marijuana, POA Uncontrolled type 2 diabetes mellitus, POA, hemoglobin A1c 10.3 Hypertension, POA Hyperlipidemia, POA INTERVAL HISTORY: Patient seen and examined, seen and examined, all labs and imaging reviewed. Alert and oriented x4 Vital signs are stable No pressors or drips. Patient is sitting comfortably at bedside chair. All lines have been removed. Chest tube is out. Chest x-ray is clear WBCs 13.6, hemoglobin 8.3, platelets 167 Good saturations on room air Reporting no chest pain, shortness of breath or discomfort. Reports feeling well. Nursing reports no acute events overnight. Plan: Follow CT surgeon postop protocol Cardiac diet, advance as tolerated PT/OT Follow I&Os Daily chest x-ray Daily labs IS Sliding scale insulin REVIEW OF SYSTEMS: Unable to perform due to patient's intubated and post CABG. PHYSICAL EXAM: GENERAL: Awake to voice, intubated post CABG. HEENT: EOMI, Sclera non icteric, moist mucosa NECK: Supple, no JVD, trachea midline. RT IJ CVC LUNGS: Rhonchi to right lower lobes. . No wheezes. chest tube HEART: Regular rate and rhythm. Normal S1 and S2, without murmurs ABD: Abdomen soft, nontender. Bowel sounds present EXT: No clubbing cyanosis or edema, Venkat hosed to RLE , juliano wrap to left leg. NEURO: awake, intubated no focal weakness. Vital Signs (last 8hr) Date Time Temp Pulse Resp B/P (MAP) Pulse Ox O2 Delivery O2 Flow Rate FiO2 03/08/25 20:00 98.2 99 18 117/75 94 Room Air 03/08/25 17:30 99.0 95 20 114/71 98 Room Air 03/08/25 16:00 98.4 93 27 117/66 96 Room Air 03/08/25 16:00 95 Room Air* 0 21 LABS: Hematology Labs: Test 03/08/25 03:06 Range/Units White Blood Count 13.6 #H 4.8-10.8 K/uL Red Blood Count 2.71 L 4.50-6.20 MIL/uL Hemoglobin 8.3 L 14.0-18.0 g/dL Hematocrit 25.4 L 42-54 % Mean Corpuscular Volume 93.7 79-99 fL Mean Corpuscular Hemoglobin 30.6 27.0-33.0 pg Mean Corpuscular Hemoglobin Concent 32.7 32.0-36.0 g/dL Red Cell Distribution Width 14.1 11.0-15.5 % Platelet Count 167 130-400 K/uL Mean Platelet Volume 9.9 7.5-10.5 fL Immature Granulocyte % (Auto) 0.4 0-1 % Neutrophils (%) (Auto) 78.8 H 40.0-77.0 % Lymphocytes (%) (Auto) 13.0 L 21.0-51.0 % Monocytes (%) (Auto) 7.4 3.0-13.0 % Eosinophils (%) (Auto) 0.3 0.0-8.0 % Basophils (%) (Auto) 0.1 0.0-5.0 % Neutrophils # (Auto) 10.7 H 1.8-7.7 K/uL Lymphocytes # (Auto) 1.8 1.0-4.8 K/uL Monocytes # (Auto) 1.0 0.1-1.0 K/uL Eosinophils # (Auto) 0.04 0.00-0.70 K/uL Basophils # (Auto) 0.02 0.00-0.20 K/uL Absolute Immature Granulocyte (auto 0.06 0-1 K/uL Nucleated Red Blood Cells 0.0 0.0-0.19 % Chemistry Labs: Test 03/08/25 19:49 03/08/25 03:06 03/07/25 03:50 Range/Units Whole Blood Glucose 221 H 70-110 MG/DL Sodium Level 136 136-145 mmol/L Potassium Level 3.9 3.5-5.1 mmol/L Chloride Level 100 L 101-111 mmol/L Carbon Dioxide Level 32 21-32 mmol/L Blood Urea Nitrogen 13 7-18 mg/dL Creatinine 0.7 0.5-1.3 mg/dL Glomerular Filtration Rate Calc 118 >90 mL/min Random Glucose 99 70-105 mg/dL Total Calcium 8.6 8.5-10.1 mg/dL Magnesium Level 1.70 L 1.80-2.40 mg/dL Ionized Calcium 1.20 1.15-1.33 MMOL/L Phosphorus Level 5.0 H 2.5-4.9 mg/dL B-Type Natriuretic Peptide 206 H 0-100 pg/mL Coagulation Labs: Test 03/07/25 03:50 Range/Units Prothrombin Time 11.9 H 9.6-11.6 SEC Prothromb Time International Ratio 1.14 0.85-1.15 Activated Partial Thromboplast Time 29.3 26.3-35.5 SEC DIAGNOSTICS / RADIOLOGY RESULTS: [ ] PLAN NEURO: Minimize central acting medications as possible. Maintain fall precautions, adequate lighting during the day PULMONARY: Supplemental 02 as needed. Maintain aspiration precautions at all times CARDIOVASCULAR: Follow hemodynamics. Vital signs per facility protocol GI & NUTRITION: Continue with nutritional support. Continue stool softeners and laxatives as needed. KIDNEYS & ELECTROLYTES: Strict monitoring of intake, output and overall fluid balance. Avoid nephrotoxic medications to the extent possible. Medications to be dosed according to renal function. Monitor electrolytes and replace as needed ENDOCRINE: Maintain blood glucose between 100-180 at all times. Hypoglycemia protocol in place INFECTIOUS DISEASE: Trend temperature, WBC and procalcitonin level Follow cultures, deescalate antibiotics as soon as possible. Panculture if new onset fever ONCOLOGY/HEMATOLOGY/COAGULATION: Monitor for s/s of bleeding Monitor hemoglobin, coagulation studies as needed SKIN: Pressure ulcer prevention per facility protocol Specialty mattress ORTHO/REHAB: Continue PT/OT Prophylaxis: Continue GI and DVT prophylaxis Code Status: Full Resuscitation Disposition: TBD Other: Total patient care time exceeds 35 minutes excluding all procedures. MALENA REA Mar 08, 2025 20:56
[2025-03-09] VITALS (8 sets, daily range): BP systolic 102–121; BP diastolic 64–78; PULSE 88–103; RESP 18–20; TEMP 98–98.9; O2SAT 94–98
[2025-03-09] MEDS: MAGNESIUM HYDROXIDE 30 ML/UDCUP PO PRN (01:51)
[2025-03-09] MEDS: LACTULOSE 20 GM/30 ML UDCUP PO PRN (01:51)
[2025-03-09 04:02] LABS: IMMATURE GRANULOCYTE ABSOLUTE 0.07 K/uL (0-1); NUCLEATED RED BLOOD CELLS 0.0 % (0.0-0.19); PLATELET COUNT (AUTO) 173 K/uL (130-400); RED BLOOD CELL COUNT(AUTO) 2.73 MIL/uL (4.50-6.20); RED CELL DISTRIBUTION WIDTH 13.8 % (11.0-15.5); WHITE BLOOD COUNT (AUTO) 11.2 K/uL (4.8-10.8)
[2025-03-09 04:09] LABS: CREATININE 0.6 mg/dL (0.5-1.3); GLOMERULAR FILTR. RATE CALC 124.0 mL/min (>90); GLUCOSE,RANDOM 109.0 mg/dL (70-105); SODIUM SERUM 136.0 mmol/L (136-145); UREA NITROGEN, BLOOD 14.0 mg/dL (7-18)
--- NOTE | 2025-03-09 08:54 | PN ---
THORACIC AND CARDIAC SURGERY SUBJECTIVE: The patient is postop day #3 from an off-pump coronary artery bypass grafting. Yesterday, the patient was transferred out of the ICU after removal of all his lines and catheters. He is currently sitting up in a chair off of oxygen and has no complaints. He is afebrile. OBJECTIVE: VITAL SIGNS: Stable. HEENT: Normocephalic and atraumatic. Extraocular movements are intact. HEART: S1, S2 and regular. CHEST: Sternal wound is bandaged. Chest tubes are out. LUNGS: Breathing is unlabored on room air at rest. ABDOMEN: Flat with positive bowel sounds. EXTREMITIES: He has THOMAS stockings on his lower extremities. ASSESSMENT AND PLAN: * Status post coronary artery bypass grafting, postop day #3. Continue aspirin, Lasix and metoprolol. Continue cardiac rehab. Home possibly tomorrow. * Hypercholesterolemia. Lipitor 40 mg p.o. at bedtime, low cholesterol, cardiac diet. * DVT prophylaxis. Lovenox 30 mg subcutaneous daily. TID: [id number] RECEIPT: [id number]
--- NOTE | 2025-03-09 10:07 | HP ---
[facility] HISTORY & PHYSICAL Date Patient Seen: Mar 09, 2025 Time of Visit: 10:05 Supervising Physician: Dr. Alan Nascimento Primary Care Physician: Claudia Referral Outpatient Specialists: [ ] Inpatient Consults: Dr Van, Dr Griffin, Dr Horn Attending: Sho Team PROBLEM LIST: CABG X 3 (PARK to LAD, RSVG to the 1st obtuse marginal coronary artery, RSVG from the aorta to the PDA) on 03/06/25 NSTEMI, POA C with findings of severe multivessel coronary artery disease, POA LVEF of 55% on 03/04/25 History of tobacco use disorder, POA History of polysubstance abuse with cocaine and synthetic marijuana, POA Uncontrolled type 2 diabetes mellitus, POA, hemoglobin A1c 10.3 Hypertension, POA Hyperlipidemia, POA HPI: This is a 44-year-old male with a past medical history of type 2 diabetes mellitus, history of polysubstance abuse with cocaine and K2 synthetic marijuana, and tobacco use disorder presented as a transfer to [facility] from [facility]. Per Medical records patient works out of town [place] and experienced chest pain and week ago he underwent coronary angiography and cardiac catheterization at that point. Apparently he was unsure about the treatment that was offered and [place] and came back [place] he lives and placenta yesterday to [facility] Emergency Department requesting medical clearance before he could return back to work. On presentation to [facility] patient was noted to have an elevated troponin which was mildly elevated at 0.055 with a BNP of 212 hemoglobin of 12.5 and creatinine of 0.8. He received aspirin, Plavix and was initiated on heparin drip and seen by Cardiology. He underwent cardiac catheterization on 03/03/25 and was found to have severe multivessel CAD. He then was transferred to [facility] for further evaluation by CV surgery for possible coronary artery bypass grafting. Today patient underwent off pump CABG X 3 (PARK to LAD, RSVG to the 1st obtuse marginal coronary artery, RSVG from the aorta to the PDA). We are consulted for critical care management post CABG. Patient was seen Post-Op in the ICU still intubated but waking up. Ventilator settings of SIMV mode with tidal volume of 500 respiratory rate of 10 FiO2 of 60% and PEEP of 5. Current drips with Insulin and Amicar. As per RN he was initially on nitro postop due to hypertension but already weaned off. Chest tube with a total drained of 200 mL on the atrium as per RN recently at 140 mL in the last hour. Hemoglobin 10.7 on ABG. White count elevated at 15.5 as expected post surgery. Chemistries shows a sodium of 149 chloride of 112 glucose 150 mg/dL hemoglobin A1c of 10.3 total calcium of 11.6 magnesium of 1.40 covered per protocol. 2D echo from 03/04/25 shows LVEF is 55%, baso mild in the apical and inferior hypokinesia. There is a trace of mitral valve regurgitation noted. On chest x-ray no acute cardiopulmonary findings. Stable right bibasilar airspace disease. ET tube in good position chest tube in place no pneumothorax tiny right pleural effusion. On behalf of [facility] thank you for given us the opportunity to participate in the care of this patient. PAST MEDICAL HX: see above PAST SURGICAL HX: noncontributory SOCIAL HISTORY: No tobacco, ETOH, or illicit drug use Coded Allergies: No Known Drug Allergies (Unverified Allergy, Unknown, 03/03/25) REVIEW OF SYSTEMS: Unable to perform due to patient's intubated and post CABG. PHYSICAL EXAM: GENERAL: Awake to voice, intubated post CABG. HEENT: EOMI, Sclera non icteric, moist mucosa NECK: Supple, no JVD, trachea midline. RT IJ CVC LUNGS: Rhonchi to right lower lobes. . No wheezes. chest tube HEART: Regular rate and rhythm. Normal S1 and S2, without murmurs ABD: Abdomen soft, nontender. Bowel sounds present EXT: No clubbing cyanosis or edema, Venkat hosed to RLE , juliano wrap to left leg. NEURO: awake, intubated no focal weakness. Vital Signs (last 8hr) Date Time Temp Pulse Resp B/P (MAP) Pulse Ox O2 Delivery O2 Flow Rate FiO2 03/09/25 07:00 99.0 93 18 121/78 99 Room Air 03/09/25 04:00 98.6 88 18 111/69 94 Room Air LABS: Hematology Labs: Test 03/09/25 03:55 Range/Units White Blood Count 11.2 H 4.8-10.8 K/uL Red Blood Count 2.73 L 4.50-6.20 MIL/uL Hemoglobin 8.5 L 14.0-18.0 g/dL Hematocrit 25.0 L 42-54 % Mean Corpuscular Volume 91.6 79-99 fL Mean Corpuscular Hemoglobin 31.1 27.0-33.0 pg Mean Corpuscular Hemoglobin Concent 34.0 32.0-36.0 g/dL Red Cell Distribution Width 13.8 11.0-15.5 % Platelet Count 173 130-400 K/uL Mean Platelet Volume 9.6 7.5-10.5 fL Immature Granulocyte % (Auto) 0.6 0-1 % Neutrophils (%) (Auto) 74.0 40.0-77.0 % Lymphocytes (%) (Auto) 17.2 L 21.0-51.0 % Monocytes (%) (Auto) 7.8 3.0-13.0 % Eosinophils (%) (Auto) 0.3 0.0-8.0 % Basophils (%) (Auto) 0.1 0.0-5.0 % Neutrophils # (Auto) 8.3 H 1.8-7.7 K/uL Lymphocytes # (Auto) 1.9 1.0-4.8 K/uL Monocytes # (Auto) 0.9 0.1-1.0 K/uL Eosinophils # (Auto) 0.03 0.00-0.70 K/uL Basophils # (Auto) 0.01 0.00-0.20 K/uL Absolute Immature Granulocyte (auto 0.07 0-1 K/uL Nucleated Red Blood Cells 0.0 0.0-0.19 % Chemistry Labs: Test 03/09/25 06:41 03/09/25 03:55 Range/Units Whole Blood Glucose 123 H 70-110 MG/DL Sodium Level 136 136-145 mmol/L Potassium Level 4.0 3.5-5.1 mmol/L Chloride Level 100 L 101-111 mmol/L Carbon Dioxide Level 34 H 21-32 mmol/L Blood Urea Nitrogen 14 7-18 mg/dL Creatinine 0.6 0.5-1.3 mg/dL Glomerular Filtration Rate Calc 124 >90 mL/min Random Glucose 109 H 70-105 mg/dL Total Calcium 8.4 L 8.5-10.1 mg/dL Magnesium Level 1.80 1.80-2.40 mg/dL DIAGNOSTICS / RADIOLOGY RESULTS: [ ] PLAN NEURO: Minimize central acting medications as possible. Maintain fall precautions, adequate lighting during the day PULMONARY: Supplemental 02 as needed. Maintain aspiration precautions at all times CARDIOVASCULAR: Follow hemodynamics. Vital signs per facility protocol GI & NUTRITION: Continue with nutritional support. Continue stool softeners and laxatives as needed. KIDNEYS & ELECTROLYTES: Strict monitoring of intake, output and overall fluid balance. Avoid nephrotoxic medications to the extent possible. Medications to be dosed according to renal function. Monitor electrolytes and replace as needed ENDOCRINE: Maintain blood glucose between 100-180 at all times. Hypoglycemia protocol in place INFECTIOUS DISEASE: Trend temperature, WBC and procalcitonin level Follow cultures, deescalate antibiotics as soon as possible. Panculture if new onset fever ONCOLOGY/HEMATOLOGY/COAGULATION: Monitor for s/s of bleeding Monitor hemoglobin, coagulation studies as needed SKIN: Pressure ulcer prevention per facility protocol Specialty mattress ORTHO/REHAB: Continue PT/OT Prophylaxis: Continue GI and DVT prophylaxis Code Status: Full Resuscitation Disposition: TBD Other: Total patient care time exceeds 35 minutes excluding all procedures. INDRA SOTOMAYOR NP Mar 09, 2025 10:07
--- NOTE | 2025-03-09 10:10 | PN ---
[facility] PROGRESS NOTE Date Patient Seen: Mar 09, 2025 Time of Visit: 10:09 Supervising Physician: Dr. Alan Nascimento Primary Care Physician: Claudia Referral Outpatient Specialists: [ ] Inpatient Consults: Dr Van, Dr Griffin, Dr Horn Attending: Sho Team PROBLEM LIST: CABG X 3 (PARK to LAD, RSVG to the 1st obtuse marginal coronary artery, RSVG from the aorta to the PDA) on 03/06/25 NSTEMI, POA LHC with findings of severe multivessel coronary artery disease, POA LVEF of 55% on 03/04/25 History of tobacco use disorder, POA History of polysubstance abuse with cocaine and synthetic marijuana, POA Uncontrolled type 2 diabetes mellitus, POA, hemoglobin A1c 10.3 Hypertension, POA Hyperlipidemia, POA INTERVAL HISTORY: Patient seen and examined, seen and examined, all labs and imaging reviewed. Alert and oriented x4 Vital signs are stable No pressors or drips. Patient is sitting comfortably at bedside chair. All lines have been removed. Chest tube is out. Chest x-ray is clear WBCs 13.6, hemoglobin 8.3, platelets 167 Good saturations on room air Reporting no chest pain, shortness of breath or discomfort. Reports feeling well. Nursing reports no acute events overnight. Plan: Follow CT surgeon postop protocol Cardiac diet, advance as tolerated PT/OT Follow I&Os Daily chest x-ray Daily labs IS Sliding scale insulin REVIEW OF SYSTEMS: Unable to perform due to patient's intubated and post CABG. PHYSICAL EXAM: GENERAL: Awake alert and oriented, oriented x3 out of bed and in no acute distress HEENT: EOMI, Sclera non icteric, moist mucosa NECK: Supple, no JVD, trachea midline. RT IJ CVC LUNGS: Rhonchi to right lower lobes. . No wheezes. chest tube HEART: Regular rate and rhythm. Normal S1 and S2, without murmurs ABD: Abdomen soft, nontender. Bowel sounds present EXT: No clubbing cyanosis or edema, NEURO: awake, intubated no focal weakness. Vital Signs (last 8hr) Date Time Temp Pulse Resp B/P (MAP) Pulse Ox O2 Delivery O2 Flow Rate FiO2 03/09/25 07:00 99.0 93 18 121/78 99 Room Air 03/09/25 04:00 98.6 88 18 111/69 94 Room Air LABS: Hematology Labs: Test 03/09/25 03:55 Range/Units White Blood Count 11.2 H 4.8-10.8 K/uL Red Blood Count 2.73 L 4.50-6.20 MIL/uL Hemoglobin 8.5 L 14.0-18.0 g/dL Hematocrit 25.0 L 42-54 % Mean Corpuscular Volume 91.6 79-99 fL Mean Corpuscular Hemoglobin 31.1 27.0-33.0 pg Mean Corpuscular Hemoglobin Concent 34.0 32.0-36.0 g/dL Red Cell Distribution Width 13.8 11.0-15.5 % Platelet Count 173 130-400 K/uL Mean Platelet Volume 9.6 7.5-10.5 fL Immature Granulocyte % (Auto) 0.6 0-1 % Neutrophils (%) (Auto) 74.0 40.0-77.0 % Lymphocytes (%) (Auto) 17.2 L 21.0-51.0 % Monocytes (%) (Auto) 7.8 3.0-13.0 % Eosinophils (%) (Auto) 0.3 0.0-8.0 % Basophils (%) (Auto) 0.1 0.0-5.0 % Neutrophils # (Auto) 8.3 H 1.8-7.7 K/uL Lymphocytes # (Auto) 1.9 1.0-4.8 K/uL Monocytes # (Auto) 0.9 0.1-1.0 K/uL Eosinophils # (Auto) 0.03 0.00-0.70 K/uL Basophils # (Auto) 0.01 0.00-0.20 K/uL Absolute Immature Granulocyte (auto 0.07 0-1 K/uL Nucleated Red Blood Cells 0.0 0.0-0.19 % Chemistry Labs: Test 03/09/25 06:41 03/09/25 03:55 Range/Units Whole Blood Glucose 123 H 70-110 MG/DL Sodium Level 136 136-145 mmol/L Potassium Level 4.0 3.5-5.1 mmol/L Chloride Level 100 L 101-111 mmol/L Carbon Dioxide Level 34 H 21-32 mmol/L Blood Urea Nitrogen 14 7-18 mg/dL Creatinine 0.6 0.5-1.3 mg/dL Glomerular Filtration Rate Calc 124 >90 mL/min Random Glucose 109 H 70-105 mg/dL Total Calcium 8.4 L 8.5-10.1 mg/dL Magnesium Level 1.80 1.80-2.40 mg/dL DIAGNOSTICS / RADIOLOGY RESULTS: [ ] PLAN NEURO: Minimize central acting medications as possible. Maintain fall precautions, adequate lighting during the day PULMONARY: Supplemental 02 as needed. Maintain aspiration precautions at all times CARDIOVASCULAR: Follow hemodynamics. Vital signs per facility protocol GI & NUTRITION: Continue with nutritional support. Continue stool softeners and laxatives as needed. KIDNEYS & ELECTROLYTES: Strict monitoring of intake, output and overall fluid balance. Avoid nephrotoxic medications to the extent possible. Medications to be dosed according to renal function. Monitor electrolytes and replace as needed ENDOCRINE: Maintain blood glucose between 100-180 at all times. Hypoglycemia protocol in place INFECTIOUS DISEASE: Trend temperature, WBC and procalcitonin level Follow cultures, deescalate antibiotics as soon as possible. Panculture if new onset fever ONCOLOGY/HEMATOLOGY/COAGULATION: Monitor for s/s of bleeding Monitor hemoglobin, coagulation studies as needed SKIN: Pressure ulcer prevention per facility protocol Specialty mattress ORTHO/REHAB: Continue PT/OT Prophylaxis: Continue GI and DVT prophylaxis Code Status: Full Resuscitation Disposition: TBD Other: Total patient care time exceeds 35 minutes excluding all procedures. INDRA SOTOMAYOR NP Mar 09, 2025 10:10
--- NOTE | 2025-03-09 12:47 | PN ---
[facility] PROGRESS NOTE Date of Service: Mar 09, 2025 Time of Service: 12:46 SUBJECTIVE: [Patient was followed up today in room 227. Denies any chest pain at this time. Evaluation for multivessel bypass is planned; cardiothoracic surgeon consult is still pending. 2D echocardiogram performed yesterday showed LVEF of 55% with basal, mild, and apical inferior hypokinesia. Trace mitral valve regurgitation noted. Otherwise, patient has no complaints. Will await further recommendations from consulting services. 03/06/25 The patient is scheduled for surgery today: Coronary Artery bypass grafting today per Dr Elliott PATIENT WILL BE GOING TO ICU POST SURGERY ROOM 213. WE WILL BRING IN CRITICAL TEAM WHILE PATIENT IS IN ICU. 03/07/25 status post CABG day one. Off drips on room air. Patient out of bed to chair recuperating well. Has chest tube Primary nurse reports no events overnight. 03/08/25 S/p Cabg day #2 recuperating well. Sitting in recliner chest tube was removed this morning. Patient denies chest pain or shortness for breath. PT is working with patient. 03/09/2025. Patient recuperating well out of bed to chair denied chest pain, shortness a breath, palpitation or dizziness. Continue to work with physical therapy pretty sternal precautions. REVIEW OF SYSTEMS CONSTITUTIONAL: Denies fevers, chills, or night sweats. reports having had weight loss of about 100 lbs in the last one year NEUROLOGICAL: Denies headache, amaurosis fugax, motor weakness, sensory deficit, vertigo/spinning sensation, gait abnormalities, or tremors. ENT: No hearing loss, otalgia, otorrhea, rhinitis, rhinorrhea, hoarseness, or sore throat. CARDIOVASCULAR: chest pain about a week ago PULMONARY: Denies any shortness of breath, cough, phlegm/sputum, hemoptysis, pleuritic chest pain. SLEEP: Denies morning headaches, daytime somnolence or napping. Denies difficulty falling asleep, staying asleep, waking from sleep. Denies knowledge of snoring. GASTROINTESTINAL: Denies any type of dysphagia to either liquids or solids. Denies nausea, vomiting, pyrosis, early satiety, abdominal pain, diarrhea, const ipation, or changes in stool consistency or caliber. Denies coffee-ground emesis, hematemesis, hematochezia, or melanotic stools. GENITOURINARY: Denies frequency, urgency, nocturia, hematuria or incontinence (Storage/Irritative symptoms.) Low urinary stream, straining to void, urinary intermittency or hesitancy, splitting of the voiding stream, terminal dribbling. ENDOCRINOLOGIC: Denies polyuria, polydipsia, polyphagia or heat/cold intolerances. HEMATOLOGIC: Denies thrombophilia/previous clots, or coagulopathy/bleeding disorders. ONCOLOGIC: Denies personal history of malignancy. DERMATOLOGIC: Denies rashes or pruritus. PSYCHIATRIC: Denies any suicidal or homicidal ideation. Denies hallucinations. PHYSICAL EXAM GENERAL APPEARANCE: The patient is awake, alert, and oriented, in no acute cardiopulmonary distress. NEUROLOGICAL: Cranial nerves II-XII grossly intact. Neurological examination is nonfocal and patient is moving upper and lower extremities with no focal deficits HEENT: Face is symmetric. Pupils are equal and reactive. Extraocular movements are intact. NECK: Supple. No JVD. No thyromegaly. No submental, submandibular, pre- /postauricular, occipital or supraclavicular lymphadenopathy. CHEST: Normal chest expansion. No Telemetry. LUNGS: Absence of any rales, rhonchi or any wheezing. CARDIOVASCULAR: Regular. S1 and S2 normal. No appreciable rubs, murmurs or gallops. ABDOMEN: Soft, nontender, and nondistended. There is no rebound, voluntary guarding, or rigidity. : Deferred. No Conn. EXTREMITIES: Non-edematous and not cyanotic. No clubbing. Good capillary refill. SKIN: No skin breakdown. Vital Signs (last 8hr) Date Time Temp Pulse Resp B/P (MAP) Pulse Ox O2 Delivery O2 Flow Rate FiO2 03/09/25 11:00 98.1 90 20 108/70 99 Room Air 03/09/25 10:57 94 Room Air* 0 21 03/09/25 07:00 99.0 93 18 121/78 99 Room Air LABS: Laboratory: Test 03/09/25 10:57 03/09/25 03:55 Range/Units Whole Blood Glucose 196 #H 70-110 MG/DL Bedside Glucose Comment Notified Nurse White Blood Count 11.2 H 4.8-10.8 K/uL Red Blood Count 2.73 L 4.50-6.20 MIL/uL Hemoglobin 8.5 L 14.0-18.0 g/dL Hematocrit 25.0 L 42-54 % Mean Corpuscular Volume 91.6 79-99 fL Mean Corpuscular Hemoglobin 31.1 27.0-33.0 pg Mean Corpuscular Hemoglobin Concent 34.0 32.0-36.0 g/dL Red Cell Distribution Width 13.8 11.0-15.5 % Platelet Count 173 130-400 K/uL Mean Platelet Volume 9.6 7.5-10.5 fL Immature Granulocyte % (Auto) 0.6 0-1 % Neutrophils (%) (Auto) 74.0 40.0-77.0 % Lymphocytes (%) (Auto) 17.2 L 21.0-51.0 % Monocytes (%) (Auto) 7.8 3.0-13.0 % Eosinophils (%) (Auto) 0.3 0.0-8.0 % Basophils (%) (Auto) 0.1 0.0-5.0 % Neutrophils # (Auto) 8.3 H 1.8-7.7 K/uL Lymphocytes # (Auto) 1.9 1.0-4.8 K/uL Monocytes # (Auto) 0.9 0.1-1.0 K/uL Eosinophils # (Auto) 0.03 0.00-0.70 K/uL Basophils # (Auto) 0.01 0.00-0.20 K/uL Absolute Immature Granulocyte (auto 0.07 0-1 K/uL Nucleated Red Blood Cells 0.0 0.0-0.19 % Sodium Level 136 136-145 mmol/L Potassium Level 4.0 3.5-5.1 mmol/L Chloride Level 100 L 101-111 mmol/L Carbon Dioxide Level 34 H 21-32 mmol/L Blood Urea Nitrogen 14 7-18 mg/dL Creatinine 0.6 0.5-1.3 mg/dL Glomerular Filtration Rate Calc 124 >90 mL/min Random Glucose 109 H 70-105 mg/dL Total Calcium 8.4 L 8.5-10.1 mg/dL Magnesium Level 1.80 1.80-2.40 mg/dL Current Medications Medications (Trade) Dose Ordered Sig/Marva Route PRN Reason Start Time Stop Time Status Last Admin Dose Admin Acetaminophen (TYLenol 325MG TAB) 650 mg Q4H PRN PO Temp >38.3C(AFTER EXTUBATION) 03/06/25 10:00 04/05/25 09:59 Acetaminophen (TYLenol 325MG TAB) 650 mg Q6H PRN PO MILD PAIN (1-3) 03/03/25 18:00 03/06/25 10:18 DC Acetaminophen (TYLenol 325MG TAB) 650 mg Q6H PRN PO MILD PAIN (1-3) 03/06/25 10:00 04/05/25 09:59 03/07/25 20:14 650 MG Acetaminophen (TYLenol 650MG SUPPOSITORY) 650 mg Q4H PRN RC Temp >38.3C WHILE INTUBATED 03/06/25 10:00 04/05/25 09:59 Acetaminophen (acetaMINOPHEN) 1,000 mg Q6H6 IV 03/06/25 14:00 03/07/25 13:59 DC 03/07/25 12:15 1,000 MG Albumin Human 250 ml @ 0 mls/hr AD PRN IV IF HEMODYNAMICALLY UNSTABLE 03/06/25 10:00 03/07/25 10:38 100 MLS/HR Aminocaproic Acid 23772 mg/Sodium Chloride 310 ml @ 25 mls/hr AD IV 03/06/25 10:00 03/06/25 10:13 DC Aminocaproic Acid 03905 mg/Sodium Chloride 480 ml @ 0 mls/hr AD PRN IV BLEEDING CONTROL 03/06/25 08:00 04/05/25 07:59 Amlodipine Besylate (NorvASC 5MG TAB) 5 mg Q24H PO 03/03/25 18:00 03/03/25 19:00 DC Amlodipine Besylate (NorvASC 5MG TAB) 5 mg Q24H PO 03/03/25 18:00 04/02/25 17:59 UNV Amlodipine Besylate (NorvASC 5MG TAB) 5 mg Q24H PO 03/03/25 19:30 03/06/25 09:48 DC 03/05/25 20:39 5 MG Aspirin (Aspirin 81mg Chew Tab) 81 mg DAILY PO 03/04/25 09:00 04/03/25 08:59 03/09/25 09:53 81 MG Atorvastatin Calcium (LIPItor 40MG) 40 mg HS PO 03/03/25 21:00 04/02/25 20:59 03/08/25 21:19 40 MG Calcium Gluconate 1 gm/Sodium Chloride 60 ml @ 200 mls/hr AD PRN IV HYPOCALCEMIA 03/06/25 10:00 04/05/25 09:59 Cefazolin Sodium (Ancef) 2 gm ONCALL IVP 03/05/25 23:30 03/06/25 09:52 DC Cefazolin Sodium (Ancef) 2 gm Q8H IVPB 03/06/25 15:00 03/07/25 07:01 DC 03/07/25 05:55 2 GM Dexmedetomidine/ Sodium Chloride (PRECEdex 400MCG/ 100ML-NS) 400 mcg PROTOCOL IV 03/06/25 10:00 03/07/25 09:59 DC Dextrose (D50w) 50 ml AD PRN IV HYPOGLYCEMIA PROTOCOL 03/03/25 18:00 03/06/25 10:19 DC Dextrose (D50w) 50 ml AD PRN IV HYPOGLYCEMIA PROTOCOL 03/06/25 10:00 04/05/25 09:59 Docusate Sodium (COLace 100MG CAP) 100 mg BID PO 03/06/25 21:00 04/05/25 20:59 03/09/25 09:52 100 MG Enoxaparin Sodium (Lovenox) 30 mg DAILY SQ 03/08/25 09:30 04/07/25 09:29 03/09/25 09:52 30 MG Epinephrine HCl 10 mg/Sodium Chloride 250 ml @ 0 mls/hr AD PRN IV TITRATE 03/06/25 08:00 04/05/25 07:59 Epinephrine HCl 10 mg/Sodium Chloride 250 ml @ 0 mls/hr AD PRN IV POST-OP CARDIOVASCULAR ORDERS 03/06/25 10:00 03/06/25 10:13 DC Famotidine (Pepcid 20mg Vial) 20 mg BID IV 03/06/25 21:00 03/07/25 07:48 DC 03/06/25 20:11 20 MG Famotidine (Pepcid 20mg Tab) 20 mg BID PO 03/03/25 21:00 03/06/25 09:48 DC 03/05/25 20:39 20 MG Famotidine (Pepcid 20mg Tab) 20 mg BID PO 03/07/25 09:00 04/06/25 08:59 03/09/25 09:53 20 MG Furosemide (LASix 20MG TAB) 20 mg Q12H PO 03/08/25 09:00 04/07/25 08:59 03/09/25 09:53 20 MG Furosemide (LASix 20MG VIAL) 20 mg Q12H IV 03/07/25 09:00 03/08/25 08:59 DC 03/07/25 20:15 20 MG Glucagon (Glucagon 1mg Kit) 1 mg AD PRN IM HYPOGLYCEMIA PROTOCOL 03/03/25 18:00 03/06/25 10:20 DC Glucagon (Glucagon 1mg Kit) 1 mg AD PRN IM HYPOGLYCEMIA PROTOCOL 03/06/25 10:00 04/05/25 09:59 Heparin Sodium (Porcine) (HEParin 5,000 UNIT VIAL) 5,000 unit AD IV 03/03/25 19:30 03/06/25 09:48 DC Heparin Sodium/ Dextrose 250 ml @ 0 mls/hr Q6H IV 03/03/25 18:30 03/06/25 09:48 DC 03/03/25 19:32 9.87 MLS/HR Insulin Glargine (LANtus 100 UNITS/ML 10 ML VIAL) 12 units HS SQ 03/03/25 21:00 03/06/25 09:48 DC 03/05/25 20:32 12 UNITS Insulin Human Regular (humuLIN R 100 UNIT/ML 3ML) INSULIN SLIDING SCAL... ACHS SQ 03/03/25 21:00 03/06/25 09:48 DC 03/05/25 20:31 3 UNIT Insulin Human Regular (humuLIN R 100 UNIT/ML 3ML) INSULIN SLIDING SCAL... ACHS SQ 03/08/25 07:30 04/07/25 07:29 03/09/25 12:43 6 UNIT Insulin Human Regular 100 unit/ Sodium Chloride 100 ml @ 0 mls/hr AD IV 03/06/25 10:00 03/08/25 09:59 DC 03/06/25 13:16 1.5 MLS/HR Lactulose (Constulose 20gm/ 30ml Udcup) 20 gm BID PRN PO CONSTIPATION 03/06/25 10:00 04/05/25 09:59 03/09/25 01:51 20 GM Magnesium Hydroxide (Milk Of Magnesium 30ml) 30 ml DAILY PRN PO CONSTIPATION 03/06/25 10:00 04/05/25 09:59 03/09/25 01:51 30 ML Magnesium Sulfate 50 ml @ 12.5 mls/hr AD PRN IV MAG LEVEL LESS THAN 2.0 03/06/25 10:00 04/05/25 09:59 03/09/25 10:16 12.5 MLS/HR Metoprolol Tartrate (loprESSOR) 12.5 mg BID PO 03/08/25 09:30 04/07/25 09:29 03/09/25 09:52 12.5 MG Morphine Sulfate (morPHINE 2MG SYG) 0.5 mg Q2H PRN IV MODERATE PAIN (4-6) 03/06/25 10:00 03/07/25 09:59 DC 03/06/25 13:54 0.5 MG Morphine Sulfate (morPHINE 2MG SYG) 1 mg Q2H PRN IVP SEVERE PAIN (7-10) 03/06/25 10:30 03/13/25 10:29 Morphine Sulfate (morPHINE 2MG SYG) 2 mg Q6H PRN IVP SEVERE PAIN (7-10) 03/03/25 18:00 03/06/25 09:48 DC Nicardipine HCl 50 mg/Sodium Chloride 250 ml @ 0 mls/hr PROTOCOL IV 03/06/25 13:30 04/05/25 13:29 Nicotine (Nicoderm) 7 mg DAILY TD 03/08/25 09:00 04/07/25 08:59 03/09/25 09:53 7 MG Nitroglycerin (Nitrostat) 0.4 mg AD PRN SL CHEST PAIN 03/03/25 18:00 03/06/25 09:48 DC Nitroglycerin/ Dextrose 0 ml @ 0 mls/hr AD IV 03/06/25 10:00 03/09/25 09:59 DC 03/06/25 13:16 6 MLS/HR Norepinephrine Bitartrate 250 ml @ 0 mls/hr AD PRN IV TITRATE 03/06/25 08:00 04/05/25 07:59 Norepinephrine Bitartrate 8 mg/ Dextrose 250 ml @ 0 mls/hr AD PRN IV POST-OP CARDIOVASCULAR ORDERS 03/06/25 10:00 03/06/25 10:13 DC Ondansetron HCl (zoFRAN 4MG INJ) 4 mg Q6H PRN IV NAUSEA/VOMITING 03/06/25 10:00 04/05/25 09:59 03/07/25 09:19 4 MG Ondansetron HCl (zoFRAN 4MG INJ) 4 mg Q6H PRN IVP NAUSEA/VOMITING 03/03/25 18:00 03/06/25 10:20 DC Potassium Phosphate 250 ml @ 42 mls/hr AD PRN IV LOW PHOS LEVEL 03/06/25 10:00 04/05/25 09:59 Potassium Chloride 100 ml @ 100 mls/hr AD PRN IV HYPOKALEMIA 03/06/25 10:00 04/05/25 09:59 03/06/25 13:14 100 MLS/HR Propofol 100 ml @ 0 mls/hr AD PRN IV SEDATION 03/06/25 10:00 03/10/25 09:59 Sodium Bicarbonate (Sodium Bicarb 50meq 50ml Vial) 50 meq AD PRN IV OTHER[SEE DOSING INSTRUCTIONS] 03/06/25 10:00 03/09/25 09:59 DC Sodium Chloride 500 ml @ 0 mls/hr AD IV 03/06/25 10:00 04/05/25 09:59 Sodium Chloride 1,000 ml @ 10 mls/hr ONCE IV 03/06/25 10:00 03/07/25 09:59 DC 03/06/25 13:17 10 MLS/HR Sodium Chloride (NS Flush 10ml) 10 ml Q8H PRN IVP IV LINE FLUSH 03/06/25 10:00 04/05/25 09:59 Tramadol HCl (UltRAM) 25 mg Q6H PRN PO MODERATE PAIN (4-6) 03/06/25 10:00 03/11/25 09:59 Tramadol HCl (UltRAM) 50 mg Q6H PRN PO SEVERE PAIN (7-10) 03/06/25 10:00 03/11/25 09:59 03/08/25 22:06 50 MG DIAGNOSTICS / RADIOLOGY: [ ] ASSESSMENT: NSTEMI, POA Status post coronary angiogram/LHC with findings of severe multivessel coronary artery disease, POA 03/06/2025 status post CABG three-vessel disease Uncontrolled type 2 diabetes mellitus, POA Hypertension, POA Hyperlipidemia, POA Tobacco dependency POA Cocaine and alcohol abuse POA PLAN: Continue cardiac monitoring and supportive care. Surgery: CabgPOD 3, stable : will follow post operative recommendation:CV: Dr Elliott encouraged to use IS while awake out of bed with meals s/p CABG: continue with Metoprolol 12.5 mg bid, Lasix 20 mg IV q 12 hr continue with ASA, and Statin therapy Sternal precaution PT services continue/ fall precaution Potassium and magnesium will be repleted per protocol smoking cessation: Nicotine patch Case discussed with Dr. Goff, above plan was formulated ATTESTATION BY PHYSICIAN I have seen and examined the patient. I reviewed the documentation, medical decision making, and treatment plan as noted by the mid-level provider above. I agree with the findings and plan of care. Lima Goff MD, ELIZABETH NP Mar 09, 2025 12:47
--- NOTE | 2025-03-09 16:29 | HMCIMG ---
CHEST 1VW REASON: s/p CABG COMPARISON: Prior chest radiograph from 03/08/2025 is available. FINDINGS: Single view of the chest was obtained. Lungs are clear. There is mild cardiomegaly with median sternotomy with a loop recorder in place. This finding is unchanged from prior study.. There is no pulmonary vascular congestion. Mediastinum and bony thorax appear unremarkable. IMPRESSION: 1. No evidence of airspace consolidation or pulmonary venous congestion 2. Mild cardiomegaly with median sternotomy with cardiac revascularization procedure.
--- NOTE | 2025-03-09 19:36 | PN ---
Non-STEMI late January 2025 Left main and three-vessel coronary disease Cocaine and alcohol abuse Tobacco abuse Status post coronary bypass Patient is cheerful and pleased with his progress, offers no complaints and has been ambulatory, is eager to go home. Chest tubes are out and lungs are clear with nonlabored respiration and unremarkable cardiac exam. No focal neurologic deficits, ambulatory. Impression and recommendation: Recovered from his surgery rapidly and appears strong, ready for discharge. I will sign off. Vitals/Labs Vital Signs Date Time Temp Pulse Resp B/P (MAP) Pulse Ox O2 Delivery O2 Flow Rate FiO2 03/09/25 19:23 98.4 103 18 118/77 97 Room Air 03/09/25 10:57 0 21 Laboratory Tests 03/09/25 03:55 Medications Current Medications Insulin Human Regular INSULIN SLIDING SCAL... ACHS SQ Last administered on 03/05/25at 20:31; Start 03/03/25 at 21:00; Stop 03/06/25 at 09:48; Status DC Dextrose 50 ml AD PRN IV; Start 03/03/25 at 18:00; Stop 03/06/25 at 10:19; Status DC Glucagon 1 mg AD PRN IM; Start 03/03/25 at 18:00; Stop 03/06/25 at 10:20; Status DC Famotidine 20 mg BID PO Last administered on 03/05/25at 20:39; Start 03/03/25 at 21:00; Stop 03/06/25 at 09:48; Status DC Amlodipine Besylate 5 mg Q24H PO; Start 03/03/25 at 18:00; Stop 04/02/25 at 17:59; Status UNV Acetaminophen 650 mg Q6H PRN PO; Start 03/03/25 at 18:00; Stop 03/06/25 at 10:18; Status DC Nitroglycerin 0.4 mg AD PRN SL; Start 03/03/25 at 18:00; Stop 03/06/25 at 09:48; Status DC Ondansetron HCl 4 mg Q6H PRN IVP; Start 03/03/25 at 18:00; Stop 03/06/25 at 10:20; Status DC Atorvastatin Calcium 40 mg HS PO Last administered on 03/08/25at 21:19; Start 03/03/25 at 21:00; Stop 04/02/25 at 20:59 Amlodipine Besylate 5 mg Q24H PO; Start 03/03/25 at 18:00; Stop 03/03/25 at 19:00; Status DC Heparin Sodium/ Dextrose 250 ml @ 0 mls/hr Q6H IV Last administered on 03/03/25at 19:32; Start 03/03/25 at 18:30; Stop 03/06/25 at 09:48; Status DC Morphine Sulfate 2 mg Q6H PRN IVP; Start 03/03/25 at 18:00; Stop 03/06/25 at 09:48; Status DC Insulin Glargine 12 units HS SQ Last administered on 03/05/25at 20:32; Start 03/03/25 at 21:00; Stop 03/06/25 at 09:48; Status DC Aspirin 81 mg DAILY PO Last administered on 03/09/25at 09:53; Start 03/04/25 at 09:00; Stop 04/03/25 at 08:59 Amlodipine Besylate 5 mg Q24H PO Last administered on 03/05/25at 20:39; Start 03/03/25 at 19:30; Stop 03/06/25 at 09:48; Status DC Heparin Sodium (Porcine) 5,000 unit AD IV; Start 03/03/25 at 19:30; Stop 03/06/25 at 09:48; Status DC Heparin Sodium (Porcine) 2,000 unit ONCE ONCE IV Last administered on 03/04/25at 02:19; Start 03/04/25 at 02:00; Stop 03/04/25 at 02:04; Status DC Potassium Bicarbonate 50 meq ONCE ONCE PO Last administered on 03/04/25at 05:24; Start 03/04/25 at 05:30; Stop 03/04/25 at 05:31; Status DC Cefazolin Sodium 2 gm ONCALL IVP; Start 03/05/25 at 23:30; Stop 03/06/25 at 09:52; Status DC Cefazolin Sodium 1 gm STK-MED ONCE .ROUTE; Start 03/06/25 at 06:54; Stop 03/06/25 at 06:54; Status DC Heparin Sodium/ Sodium Chloride 500 ml @ As Directed STK-MED ONCE IV; Start 03/06/25 at 06:54; Stop 03/06/25 at 06:54; Status DC Papaverine HCl 60 mg STK-MED ONCE .ROUTE; Start 03/06/25 at 06:54; Stop 03/06/25 at 06:54; Status DC Epinephrine HCl 10 mg/Sodium Chloride 250 ml @ 0 mls/hr AD PRN IV; Start 03/06/25 at 08:00; Stop 04/05/25 at 07:59 Norepinephrine Bitartrate 250 ml @ 0 mls/hr AD PRN IV; Start 03/06/25 at 08:00; Stop 04/05/25 at 07:59 Aminocaproic Acid 11462 mg/Sodium Chloride 480 ml @ 0 mls/hr AD PRN IV; Start 03/06/25 at 08:00; Stop 04/05/25 at 07:59 Lidocaine HCl/ Dextrose 250 ml @ As Directed STK-MED ONCE IV; Start 03/06/25 at 09:08; Stop 03/06/25 at 09:08; Status DC Nitroglycerin/ Dextrose 1 ml @ As Directed STK-MED ONCE .ROUTE; Start 03/06/25 at 09:08; Stop 03/06/25 at 09:08; Status DC Protamine Sulfate 250 mg STK-MED ONCE IV; Start 03/06/25 at 09:19; Stop 03/06/25 at 09:19; Status DC Lidocaine HCl 100 mg STK-MED ONCE .ROUTE; Start 03/06/25 at 09:19; Stop 03/06/25 at 09:19; Status DC Heparin Sodium (Porcine) 10,000 unit STK-MED ONCE .ROUTE; Start 03/06/25 at 09:19; Stop 03/06/25 at 09:19; Status DC Epinephrine HCl 1 mg STK-MED ONCE .ROUTE; Start 03/06/25 at 09:19; Stop 03/06/25 at 09:19; Status DC Sodium Bicarbonate 200 ml @ As Directed STK-MED ONCE .ROUTE; Start 03/06/25 at 09:19; Stop 03/06/25 at 09:19; Status DC Norepinephrine Bitartrate 4 mg STK-MED ONCE IV; Start 03/06/25 at 09:19; Stop 03/06/25 at 09:19; Status DC Fentanyl Citrate 1,000 mcg STK-MED ONCE IJ; Start 03/06/25 at 09:19; Stop 03/06/25 at 09:20; Status DC Propofol 200 mg STK-MED ONCE IV; Start 03/06/25 at 09:20; Stop 03/06/25 at 09:20; Status DC Midazolam HCl 2 mg STK-MED ONCE .ROUTE; Start 03/06/25 at 09:20; Stop 03/06/25 at 09:20; Status DC Rocuronium [place] 50 mg STK-MED ONCE .ROUTE; Start 03/06/25 at 09:20; Stop 03/06/25 at 09:20; Status DC Acetaminophen 1,000 mg Q6H6 IV Last administered on 03/07/25at 12:15; Start 03/06/25 at 14:00; Stop 03/07/25 at 13:59; Status DC Aspirin 81 mg ONCE ONCE NG Last administered on 03/06/25at 20:18; Start 03/06/25 at 14:00; Stop 03/06/25 at 14:01; Status DC Docusate Sodium 100 mg BID PO Last administered on 03/09/25at 09:52; Start 03/06/25 at 21:00; Stop 04/05/25 at 20:59 Lactulose 20 gm BID PRN PO Last administered on 03/09/25at 01:51; Start 03/06/25 at 10:00; Stop 04/05/25 at 09:59 Furosemide 20 mg Q12H PO Last administered on 03/09/25at 09:53; Start 03/08/25 at 09:00; Stop 04/07/25 at 08:59 Furosemide 20 mg Q12H IV Last administered on 03/07/25at 20:15; Start 03/07/25 at 09:00; Stop 03/08/25 at 08:59; Status DC Magnesium Hydroxide 30 ml DAILY PRN PO Last administered on 03/09/25at 01:51; Start 03/06/25 at 10:00; Stop 04/05/25 at 09:59 Dexmedetomidine/ Sodium Chloride 400 mcg PROTOCOL IV; Start 03/06/25 at 10:00; Stop 03/07/25 at 09:59; Status DC Acetaminophen 650 mg Q6H PRN PO Last administered on 03/07/25at 20:14; Start 03/06/25 at 10:00; Stop 04/05/25 at 09:59 Sodium Chloride 1,000 ml @ 10 mls/hr ONCE IV Last administered on 03/06/25at 13:17; Start 03/06/25 at 10:00; Stop 03/07/25 at 09:59; Status DC Sodium Chloride 10 ml Q8H PRN IVP; Start 03/06/25 at 10:00; Stop 04/05/25 at 09:59 Morphine Sulfate 0.5 mg Q2H PRN IV Last administered on 03/06/25at 13:54; Start 03/06/25 at 10:00; Stop 03/07/25 at 09:59; Status DC Morphine Sulfate 1 mg Q2H PRN IVP; Start 03/06/25 at 10:30; Stop 03/13/25 at 10:29 Acetaminophen 650 mg Q4H PRN RC; Start 03/06/25 at 10:00; Stop 04/05/25 at 09:59 Ondansetron HCl 4 mg Q6H PRN IV Last administered on 03/07/25at 09:19; Start 03/06/25 at 10:00; Stop 04/05/25 at 09:59 Sodium Chloride 500 ml @ 0 mls/hr AD IV; Start 03/06/25 at 10:00; Stop 04/05/25 at 09:59 Nitroglycerin/ Dextrose 0 ml @ 0 mls/hr AD IV Last administered on 03/06/25at 13:16; Start 03/06/25 at 10:00; Stop 03/09/25 at 09:59; Status DC Propofol 100 ml @ 0 mls/hr AD PRN IV; Start 03/06/25 at 10:00; Stop 03/10/25 at 09:59 Norepinephrine Bitartrate 8 mg/ Dextrose 250 ml @ 0 mls/hr AD PRN IV; Start 03/06/25 at 10:00; Stop 03/06/25 at 10:13; Status DC Epinephrine HCl 10 mg/Sodium Chloride 250 ml @ 0 mls/hr AD PRN IV; Start 03/06/25 at 10:00; Stop 03/06/25 at 10:13; Status DC Aminocaproic Acid 68493 mg/Sodium Chloride 310 ml @ 25 mls/hr AD IV; Start 03/06/25 at 10:00; Stop 03/06/25 at 10:13; Status DC Calcium Gluconate 1 gm/Sodium Chloride 60 ml @ 200 mls/hr AD PRN IV; Start 03/06/25 at 10:00; Stop 04/05/25 at 09:59 Magnesium Sulfate 50 ml @ 12.5 mls/hr AD PRN IV Last administered on 03/09/25at 10:16; Start 03/06/25 at 10:00; Stop 04/05/25 at 09:59 Potassium Chloride 100 ml @ 100 mls/hr AD PRN IV Last administered on 03/06/25at 13:14; Start 03/06/25 at 10:00; Stop 04/05/25 at 09:59 Potassium Phosphate 250 ml @ 42 mls/hr AD PRN IV; Start 03/06/25 at 10:00; Stop 04/05/25 at 09:59 Albumin Human 250 ml @ 0 mls/hr AD PRN IV Last administered on 03/07/25at 10:38; Start 03/06/25 at 10:00 Acetaminophen 650 mg Q4H PRN PO; Start 03/06/25 at 10:00; Stop 04/05/25 at 09:59 Insulin Human Regular 100 unit/ Sodium Chloride 100 ml @ 0 mls/hr AD IV Last administered on 03/06/25at 13:16; Start 03/06/25 at 10:00; Stop 03/08/25 at 09:59; Status DC Cefazolin Sodium 2 gm Q8H IVPB Last administered on 03/07/25at 05:55; Start 03/06/25 at 15:00; Stop 03/07/25 at 07:01; Status DC Tramadol HCl 25 mg Q6H PRN PO; Start 03/06/25 at 10:00; Stop 03/11/25 at 09:59 Tramadol HCl 50 mg Q6H PRN PO Last administered on 03/08/25at 22:06; Start 03/06/25 at 10:00; Stop 03/11/25 at 09:59 Famotidine 20 mg BID IV Last administered on 03/06/25at 20:11; Start 03/06/25 at 21:00; Stop 03/07/25 at 07:48; Status DC Sodium Bicarbonate 50 meq AD PRN IV; Start 03/06/25 at 10:00; Stop 03/09/25 at 09:59; Status DC Dextrose 50 ml AD PRN IV; Start 03/06/25 at 10:00; Stop 04/05/25 at 09:59 Glucagon 1 mg AD PRN IM; Start 03/06/25 at 10:00; Stop 04/05/25 at 09:59 Amiodarone HCl 150 mg STK-MED ONCE .ROUTE; Start 03/06/25 at 10:27; Stop 03/06/25 at 10:28; Status DC Amiodarone HCl 150 mg STK-MED ONCE .ROUTE; Start 03/06/25 at 10:31; Stop 03/06/25 at 10:31; Status DC Lidocaine HCl 100 mg STK-MED ONCE .ROUTE; Start 03/06/25 at 10:31; Stop 03/06/25 at 10:31; Status DC Heparin Sodium (Porcine) 10,000 unit STK-MED ONCE .ROUTE; Start 03/06/25 at 10:31; Stop 03/06/25 at 10:31; Status DC Cefazolin Sodium 2 gm STK-MED ONCE IVPB Last administered on 03/06/25at 09:45; Start 03/06/25 at 09:45; Stop 03/06/25 at 11:16; Status DC Papaverine HCl 60 mg STK-MED ONCE IRRIG Last administered on 03/06/25at 09:17; Start 03/06/25 at 09:17; Stop 03/06/25 at 11:16; Status DC Cefazolin Sodium 1 gm STK-MED ONCE IRRIG Last administered on 03/06/25at 09:17; Start 03/06/25 at 09:17; Stop 03/06/25 at 11:16; Status DC Heparin Sodium (Porcine) 10,000 unit STK-MED ONCE .ROUTE; Start 03/06/25 at 11:12; Stop 03/06/25 at 11:12; Status DC Albumin Human 500 ml @ As Directed STK-MED ONCE IV; Start 03/06/25 at 11:59; Stop 03/06/25 at 12:00; Status DC Fentanyl Citrate 250 mcg STK-MED ONCE IV; Start 03/06/25 at 12:26; Stop 03/06/25 at 12:27; Status DC Nicardipine HCl 50 mg/Sodium Chloride 250 ml @ 0 mls/hr PROTOCOL IV; Start 03/06/25 at 13:30; Stop 04/05/25 at 13:29 Famotidine 20 mg BID PO Last administered on 03/09/25at 09:53; Start 03/07/25 at 09:00; Stop 04/06/25 at 08:59 Nicotine 7 mg DAILY TD Last administered on 03/09/25at 09:53; Start 03/08/25 at 09:00; Stop 04/07/25 at 08:59 Insulin Human Regular INSULIN SLIDING SCAL... ACHS SQ Last administered on 03/09/25at 17:00; Start 03/08/25 at 07:30; Stop 04/07/25 at 07:29 Metoprolol Tartrate 12.5 mg BID PO Last administered on 03/09/25at 09:52; Start 03/08/25 at 09:30; Stop 04/07/25 at 09:29 Enoxaparin Sodium 30 mg DAILY SQ Last administered on 03/09/25at 09:52; Start 03/08/25 at 09:30; Stop 04/07/25 at 09:29 MIGNON GALINDO MD Mar 09, 2025 19:35
[2025-03-10 03:41] VITALS: BP 131/79; PULSE 92; RESP 19; TEMP 98.8
[2025-03-10 05:11] LABS: IMMATURE GRANULOCYTE ABSOLUTE 0.04 K/uL (0-1); NUCLEATED RED BLOOD CELLS 0.0 % (0.0-0.19); PLATELET COUNT (AUTO) 186 K/uL (130-400); RED BLOOD CELL COUNT(AUTO) 2.61 MIL/uL (4.50-6.20); RED CELL DISTRIBUTION WIDTH 13.8 % (11.0-15.5); WHITE BLOOD COUNT (AUTO) 9.8 K/uL (4.8-10.8)
[2025-03-10 05:26] LABS: CREATININE 0.6 mg/dL (0.5-1.3); GLOMERULAR FILTR. RATE CALC 124.0 mL/min (>90); GLUCOSE,RANDOM 111.0 mg/dL (70-105); SODIUM SERUM 139.0 mmol/L (136-145); UREA NITROGEN, BLOOD 12.0 mg/dL (7-18)
[2025-03-10 07:15] VITALS: BP 114/75; PULSE 94; RESP 18; TEMP 98.5
[2025-03-10 08:00] VITALS: O2SAT 98
[2025-03-10] MEDS ORDERED: PoTASSium chl 10% ELIXIR 20MEQ 20 MEQ/15 ML UDCUP PO PRN (09:00)
[2025-03-10] MEDS ORDERED: ASPI-1005 PO (09:23)
[2025-03-10] MEDS ORDERED: FURO20TA6 PO (09:23)
[2025-03-10] MEDS ORDERED: METO25 PO (09:23)
[2025-03-10] MEDS ORDERED: ATOR40TA69 PO (09:23)
--- NOTE | 2025-03-10 09:32 | DS ---
Discharge Summary Hospital Course Summary: [Patient was followed up today in room 227. Denies any chest pain at this time. Evaluation for multivessel bypass is planned; cardiothoracic surgeon consult is still pending. 2D echocardiogram performed yesterday showed LVEF of 55% with basal, mild, and apical inferior hypokinesia. Trace mitral valve regurgitation noted. Otherwise, patient has no complaints. Will await further recommendations from consulting services. 03/06/25 The patient is scheduled for surgery today: Coronary Artery bypass grafting today per Dr Roque PATIENT WILL BE GOING TO ICU POST SURGERY ROOM 213. WE WILL BRING IN CRITICAL TEAM WHILE PATIENT IS IN ICU. 03/07/25 status post CABG day one. Off drips on room air. Patient out of bed to chair recuperating well. Has chest tube Primary nurse reports no events overnight. 03/08/25 S/p Cabg day #2 recuperating well. Sitting in recliner chest tube was removed this morning. Patient denies chest pain or shortness for breath. PT is working with patient. 03/09/2025. Patient recuperating well out of bed to chair denied chest pain, shortness a breath, palpitation or dizziness. Continue to work with physical therapy pretty sternal precautions. 03/10/25 patient is hemodynamically stable we will be discharged home today patient to follow-up with CV surgeon one-week [facility] heart clinic one-week. Cely kapoor's latest hemoglobin 8.5. Patient was advised to follow-up with PCP in [facility] for his diabetic management. Patient has new medications postop CABG advised patient the importance to follow medical management as directed by surgeon and oracle distribution consultant's advised patient to stop smoking tobacco products in use of illicits drug use he verbalized understanding. Patient denied chest pain, shortness a breath, dizziness, palpitations. He is currently on room air ambulating greater than 100 ft. Procedure(s): [facility] [address] [place] [id number] DATE OF PROCEDURE: 03/06/2025 PREOPERATIVE DIAGNOSIS: Left main coronary artery disease. POSTOPERATIVE DIAGNOSIS: Left main coronary artery disease. PROCEDURES PERFORMED: * Off-pump coronary artery bypass grafting x 3 vessels (left internal mammary to LAD, reverse saphenous vein graft from the aorta to the first obtuse marginal coronary artery, reverse saphenous vein graft from the aorta to the posterior descending artery). * Left atrial exclusion with a 40-mm left atrial clip. This was justified to reduce the need for postoperative anticoagulation. The patient had a KAROLYN score of greater than or equal to 2. * Rigid sternal fixation with LUPE plating system. OPERATING SURGEON: Dilcia Roque MD ANESTHESIOLOGIST: Dr. Mcdowell TYPE OF ANESTHESIA: General endotracheal joint cleaning machine operator: Curt Barger BRIEF HISTORY: The patient is a 44-year-old male with history of hypertension and polysubstance abuse including synthetic marijuana and cocaine. The patient had been evaluated in [place] for chest pain and I believe was found to have coronary artery disease. He left without treatment and because he wanted to get a job, he had to be checked out and cleared by oracle distribution consultant. He underwent a heart catheterization which revealed not only left main coronary artery disease but right coronary artery disease. FINDINGS: The patient had good left ventricular function. He had good size coronary targets and good size conduits. He tolerated the procedure well. The patient also did not have any clot in his left atrial appendage and therefore it was excluded with a 40-mm AtriCure clip. DESCRIPTION OF PROCEDURE: The patient was brought to the operating room and placed on the operating room table in the supine position. He was given general endotracheal anesthesia. After placing lines and catheters, his chest, abdomen, and legs were prepped and draped in the usual sterile fashion. His left greater saphenous vein was harvested endoscopically and simultaneously, a mediastinoscopy performed and the left internal mammary artery was taken down. The patient was given a total of 20,000 units of IV heparin. The left internal mammary artery was clamped with bulldog proximally and divided distally. The pericardium was opened in the midline and the LAD was stabilized in its midsection with an Acrobat epicardial retractor. A 5-0 Prolene snare was placed proximal to the target site, which was opened longitudinally. The distal end of the left internal mammary artery was anastomosed to the side of the LAD over a 1-mm shunt using a running 7-0 Prolene suture and the pedicle was tacked to the epicardium with two 6-0 Prolene sutures. The bulldog clamp and the snare was released and the LAD was reperfused at the end of the procedure. The next target was first obtuse marginal coronary artery. This vessel was grafted very close to the AV groove. An end-to-side anastomosis was performed using a reverse saphenous vein graft. The anastomosis was done in an end-to-side fashion over a 1-mm shunt using a running 7-0 Prolene suture. This vein graft was then draped under the left internal mammary artery and cut to appropriate length to reach aorta. The final target was the posterior descending artery. This received the distal end of the second reverse saphenous vein graft. An end-to-side anastomosis was performed over a 1-mm shunt using a running 7-0 Prolene suture and this vein graft was draped along the right side of the heart and cut to appropriate length to reach aorta. Two 3.8-mm aortotomy holes were made with heartstring devices in the proximal ends of the vein grafts and anastomosed to the side of the aorta using running 6-0 Prolene sutures. The vein grafts were de-aired and all 3 systems were revascularized. A 40-mm AtriCure clip was then placed in the base of the left atrial appendage. The mediastinum and left chest were drained with 24-Serbian Jerome drain, secured to the skin with silk sutures. The patient was given protamine. The pericardium was loosely approximated with heart and grafts with several separate Ethibond sutures. The sternum was reapproximated with a combination of stainless steel wires and LUPE sternal plating system. The presternal fascia and subcutaneous tissues were closed using running layers of Vicryl suture. The skin was closed using a running intracuticular Monocryl stitch. The wounds were clean, dry, and covered with bandages. The patient was undraped, taken and extubated to the ICU in critical, but stable condition. TID: [id number] RECEIPT: [id number] cc: MALLORY BENNETT MD(User), MIGNON GALINDO MD(User), Curt Fuentes Electronically Signed by: DILCIA ROQUE MD03/06/25 3960 Electronically Co-Signed by: Assessment/Plan: DISCHARGED DX'S NSTEMI, POA Status post coronary angiogram/LHC with findings of severe multivessel coronary artery disease, POA 03/06/2025 status post CABG three-vessel disease Uncontrolled type 2 diabetes mellitus, POA Hypertension, POA Hyperlipidemia, POA Tobacco dependency POA Cocaine and alcohol abuse POA PLAN: ADMISSION DATE: 03/03/2025 DISCHARGE DATE: 03/10/2025 DISPOSITION: HOME CONDITION: STABLE SENIOR QUALITY MANAGER(S): CV SURGEON, INDEPENDENT SALES REPRESENTATIVE'S FOLLOW UP APPOINTMENT(S): DR. NICCI VILLALOBOS, [facility]: DR TERELL VILLALOBOS PROCEDURES: CABG IMAGING (S) REPORT ATTACHED TO SUMMARY : MICROBIOLOGY: REPORT ATTACHED TO SUMMARY; ACTIVITY: AB JO ANN HOME MEDICATIONS: NONE PROFILE NEW MEDICATIONS SEE BELOW TEACHING: INSTRUCTED PATIENT SIDE EFFECTS AND ADVERSE REACTIONS OF NEW MEDICATION Instructed on incision care and Sternal precaution no heavy lifting greater until cleared by CV. EMERGENCY INSTRUCTIONS: THE PATIENT WAS INSTRUCTED TO PRESENT TO THE NEAREST EMERGENCY DEPARTMENT OR CALL 911 SHOULD THEIR SYMPTOMS RETURN OR WORSEN. Discharge Instructions: REASON: NSTEMI, heart clinic to read ORDERING PHYSICIAN: VERENICE FERRIS MD PROCEDURE: ECHO CMP - ECHO 2-D COMPLETE APPROVED REPORT EXAM: Two-dimensional and M-mode echocardiogram with Doppler and color Doppler. INDICATION ICD: NSTEMI 2D Dimensions RVDd 3.5 cm LVEF(%) 14.9 (>50%) LVED Vol(simp.) 152.4 mL IVSd 1.0 (0.7-1.1cm) FS(%) 7 % LVES Vol(simp.) 98.2 mL LVDd 5.3 (3.8-5.6cm) LA (2D) 3.1 (1.6-4.0cm) LVEF(%, simp.) 36 % PWd 0.9 (0.7-1.1cm) Ao Root(2D) 3.2 (2.0-3.7cm) LA ESV INDEX (BP) 33.52 mL/m2 IVSs 1.3 cm LVOT diam 2.1 (1.8-2.4cm) LVDs 4.9 (2.5-4.0cm) PWs 0.9 cm Deformation Strain Apical 4 -14.7 % Apical 2 -12.7 % Apical 3 -11.1 % Global Strain -12.8 % M-Mode Dimensions EPSS 1.2 cm LA (MM) 3.4 (1.6-4.0cm) Ao Root(MM) 3.1 (2.0-3.7cm) Aortic Valve AoV Vmax 1.5 m/s Ao Peak GR 8.8 mmHg LVOT Vmax 0.8 m/s AoV VTI 0.3 m Ao Mean GR 4.4 mmHg LVOT VTI 0.17 m MEL (VMAX) 1.83 cm2 MEL (VTI) 2.0 cm2 Mitral Valve MV E Vmax 87.3 cm/s DECEL Time 163 ms MV A Vmax 61.7 cm/s E/A ratio 1.4 TDI E/E' Medial 17.7 E/E' Lateral 8.8 Medial E' Peak V 4.92 cm/s Lateral E' Peak V 9.88 cm/s Pulmonary Valve PV Vmax 1.0 m/s PV VTI 0.21 m PV Mean GR 2.2 mmHg PV Peak GR 3.8 mmHg Tricuspid Valve RAP (EST) 8 mmHg RVSP 8.0 mmHg Left Ventricle The left ventricle is normal size. Mild spontaneous contrast noted Basal, mid and apical inferior hypokinesia. There is mild to moderate assymetrical left ventricular wall thickness. LVEF is 55%. The left ventricular diastolic function is normal. Right Ventricle The right ventricle is normal size. The right ventricular systolic function is normal. Atria The left atrium size is normal. The right atrium size is normal. Aortic Valve The aortic valve is thickened and opens well. No aortic regurgitation is present. There is no aortic valvular stenosis. Mitral Valve The mitral valve is mildly thickened and opens well. There is trace of mitral valve regurgitation noted. There is no mitral valve stenosis. Tricuspid Valve The tricuspid valve is normal in structure. There is trace of tricuspid valve regurgitation noted. Pulmonic Valve The pulmonary valve is normal in structure. There is no pulmonic valvular regurgitation. Great Vessels The aortic root is normal in size. The IVC is normal in size and collapses <50% with inspiration. Pericardium There is no pericardial effusion. Other Information Quality : Adequate Conclusion LVEF is 55%. Basal, mid and apical inferior hypokinesia. There is trace of mitral valve regurgitation noted. DICTATED BY: MIGNON GALINDO MD DATE: 03/04/25 1023 ELECTRONICALLY SIGNED BY: MIGNON GALINDO MD DATE: 03/05/25 1002 New Medications: Aspirin (Aspirin 81MG Chew Tab) 81 Mg Tab.chew 81 MG PO DAILY for 30 Days, #30 TAB.CHEW Atorvastatin Calcium (Lipitor) 40 Mg Tablet 40 MG PO HS for 30 Days, #30 TAB Furosemide (Lasix 20Mg Tab) 20 Mg Tablet 20 MG PO Q12H for 30 Days, #60 TAB Metoprolol Tartrate (Lopressor) 25 Mg Tab 12.5 MG PO BID for 30 Days, #60 TAB Time spent arranging discharge: 31-60 minutes ATTESTATION BY PHYSICIAN I have seen and examined the patient. I reviewed the documentation, medical decision making, and treatment plan as noted by the mid-level provider above. I agree with the findings and plan of care. Lima Goff MD, ELIZABETH NP Mar 10, 2025 09:32
--- NOTE | 2025-03-10 09:34 | PN ---
[facility] PROGRESS NOTE Date Patient Seen: Mar 10, 2025 Time of Visit: 09:33 Supervising Physician: Dr Nascimento Primary Care Physician: Claudia Referral Outpatient Specialists: [ ] Inpatient Consults: Dr Van, Dr Griffin, Dr Horn Attending: [employer] Team PROBLEM LIST: CABG X 3 (PARK to LAD, RSVG to the 1st obtuse marginal coronary artery, RSVG from the aorta to the PDA) on 03/06/25 NSTEMI, POA LHC with findings of severe multivessel coronary artery disease, POA LVEF of 55% on 03/04/25 History of tobacco use disorder, POA History of polysubstance abuse with cocaine and synthetic marijuana, POA Uncontrolled type 2 diabetes mellitus, POA, hemoglobin A1c 10.3 Hypertension, POA Hyperlipidemia, POA INTERVAL HISTORY: Patient seen and examined, seen and examined, all labs and imaging reviewed. Alert and oriented x4 Vital signs are stable No pressors or drips. Patient is comfortable at bedside chair, he is reporting no chest pain or shortness of breath Imaging and labs are all stable Good saturation on room air Plan: Follow CT surgeon postop protocol Cardiac diet, advance as tolerated PT/OT Follow I&Os Daily chest x-ray Daily labs IS Sliding scale insulin Patient doing very well, possible discharge REVIEW OF SYSTEMS: Unable to perform due to patient's intubated and post CABG. PHYSICAL EXAM: GENERAL: Awake alert and oriented, oriented x3 out of bed and in no acute distress HEENT: EOMI, Sclera non icteric, moist mucosa NECK: Supple, no JVD, trachea midline. RT IJ CVC LUNGS: Rhonchi to right lower lobes. . No wheezes. chest tube HEART: Regular rate and rhythm. Normal S1 and S2, without murmurs ABD: Abdomen soft, nontender. Bowel sounds present EXT: No clubbing cyanosis or edema, NEURO: awake, intubated no focal weakness. Vital Signs (last 8hr) Date Time Temp Pulse Resp B/P (MAP) Pulse Ox O2 Delivery O2 Flow Rate FiO2 03/10/25 07:15 98.4 94 18 114/75 98 Room Air 03/10/25 03:41 98.8 92 19 131/79 100 Room Air LABS: Hematology Labs: Test 03/10/25 05:00 Range/Units White Blood Count 9.8 4.8-10.8 K/uL Red Blood Count 2.61 L 4.50-6.20 MIL/uL Hemoglobin 8.0 L 14.0-18.0 g/dL Hematocrit 23.7 L 42-54 % Mean Corpuscular Volume 90.8 79-99 fL Mean Corpuscular Hemoglobin 30.7 27.0-33.0 pg Mean Corpuscular Hemoglobin Concent 33.8 32.0-36.0 g/dL Red Cell Distribution Width 13.8 11.0-15.5 % Platelet Count 186 130-400 K/uL Mean Platelet Volume 9.8 7.5-10.5 fL Immature Granulocyte % (Auto) 0.4 0-1 % Neutrophils (%) (Auto) 65.4 40.0-77.0 % Lymphocytes (%) (Auto) 24.7 21.0-51.0 % Monocytes (%) (Auto) 8.9 3.0-13.0 % Eosinophils (%) (Auto) 0.4 0.0-8.0 % Basophils (%) (Auto) 0.2 0.0-5.0 % Neutrophils # (Auto) 6.4 1.8-7.7 K/uL Lymphocytes # (Auto) 2.4 1.0-4.8 K/uL Monocytes # (Auto) 0.9 0.1-1.0 K/uL Eosinophils # (Auto) 0.04 0.00-0.70 K/uL Basophils # (Auto) 0.02 0.00-0.20 K/uL Absolute Immature Granulocyte (auto 0.04 0-1 K/uL Nucleated Red Blood Cells 0.0 0.0-0.19 % Chemistry Labs: Test 03/10/25 05:15 03/10/25 05:00 03/09/25 16:07 Range/Units Whole Blood Glucose 113 #H 70-110 MG/DL Sodium Level 139 136-145 mmol/L Potassium Level 3.8 3.5-5.1 mmol/L Chloride Level 103 101-111 mmol/L Carbon Dioxide Level 31 21-32 mmol/L Blood Urea Nitrogen 12 7-18 mg/dL Creatinine 0.6 0.5-1.3 mg/dL Glomerular Filtration Rate Calc 124 >90 mL/min Random Glucose 111 H 70-105 mg/dL Total Calcium 8.5 8.5-10.1 mg/dL Magnesium Level 1.90 1.80-2.40 mg/dL Bedside Glucose Comment Notified Nurse DIAGNOSTICS / RADIOLOGY RESULTS: [ ] PLAN NEURO: Minimize central acting medications as possible. Maintain fall precautions, adequate lighting during the day PULMONARY: Supplemental 02 as needed. Maintain aspiration precautions at all times CARDIOVASCULAR: Follow hemodynamics. Vital signs per facility protocol GI & NUTRITION: Continue with nutritional support. Continue stool softeners and laxatives as needed. KIDNEYS & ELECTROLYTES: Strict monitoring of intake, output and overall fluid balance. Avoid nephrotoxic medications to the extent possible. Medications to be dosed according to renal function. Monitor electrolytes and replace as needed ENDOCRINE: Maintain blood glucose between 100-180 at all times. Hypoglycemia protocol in place INFECTIOUS DISEASE: Trend temperature, WBC and procalcitonin level Follow cultures, deescalate antibiotics as soon as possible. Panculture if new onset fever ONCOLOGY/HEMATOLOGY/COAGULATION: Monitor for s/s of bleeding Monitor hemoglobin, coagulation studies as needed SKIN: Pressure ulcer prevention per facility protocol Specialty mattress ORTHO/REHAB: Continue PT/OT Prophylaxis: Continue GI and DVT prophylaxis Code Status: Full Resuscitation Disposition: TBD Other: Total patient care time exceeds 35 minutes excluding all procedures. MALENA REA Mar 10, 2025 09:34
[2025-03-10] MEDS: PoTASSium chloRIDE 20MEQ ER 20 MEQ ERTAB PO PRN (10:29)
[2025-03-10 11:20] VITALS: BP 116/76; PULSE 88; RESP 18; TEMP 98.7
[2025-03-10 11:55] LABS: NUCLEATED RED BLOOD CELLS 0.0 % (0.0-0.19); PLATELET COUNT (AUTO) 241.0 K/uL (130-400); RED BLOOD CELL COUNT(AUTO) 2.81 MIL/uL (4.50-6.20); RED CELL DISTRIBUTION WIDTH 13.8 % (11.0-15.5); WHITE BLOOD COUNT (AUTO) 9.8 K/uL (4.8-10.8)
--- NOTE | 2025-03-10 13:19 | NUR ---
DISCHARGE INSTRUCTIONS WERE GIVEN TO THIS PATIENT. EDUCATION WAS PROVIDED ON MEDICATION AND CARE AFTER CABG, HE VOICED UNDERSTANDING. PIV TO RIGHT FOREARM WAS REMOVED WITH CATHETER INTACT AND DRY DRESSING WAS APPLIED. TELE PACK WAS REMOVED AND RETURNED TO TELEMETRY ROOM. PATIENT WAS TAKEN DOWN TO UBER VEHICLE VIA WHEELCHAIR. PATIENT DENIED ANY PAIN AND ANY SHORTNESS OF BREATH.
--- NOTE | 2025-03-10 19:36 | PN ---
SUBJECTIVE: The patient is postoperative day #4 from an off-pump coronary artery bypass grafting. The patient has done quite well after surgery. He is off oxygen. He has been ambulating in the halls with minimal assistance. OBJECTIVE: HEENT: Reveals normocephalic and atraumatic. Extraocular movements intact. CHEST: His sternal wound is healing well. His chest tubes are out. HEART: S1, S2 and regular. LUNGS: Unlabored at rest, off oxygen. ABDOMEN: Reveals positive bowel sounds. ASSESSMENT AND PLAN: * Status post off-pump coronary artery bypass grafting. Plan: Discharge home today. * The patient should continue on aspirin, metoprolol, Lasix, and cardiac rehab. * He will follow up in 2 weeks. * Hypercholesterolemia. Lipitor at bedtime and low-cholesterol, cardiac diet. * DVT prophylaxis. Continue Lovenox 30 mg subcu q. day until the patient is discharged home. TID: [id number] RECEIPT: [id number]
--- NOTE | 2025-03-11 09:11 | HMCIMG ---
EXAM: CR Chest, single view. CLINICAL HISTORY: Status post CABG. COMPARISON: Prior chest radiograph dated 09 March 2025 FINDINGS: Poststernotomy status. Moderate cardiomegaly with bilateral pulmonary congestion. Mild bilateral pleural effusion with adjacent lung atelectasis. No evidence of pneumothorax. The cardiomediastinal silhouette is within normal limits. No acute osseous abnormality. IMPRESSION: Poststernotomy status. Moderate cardiomegaly with bilateral pulmonary congestion. Mild bilateral pleural effusion with adjacent lung atelectasis. No evidence of pneumothorax. Interval development of mild bilateral pleural effusion with adjacent lung atelectasis. /Brandon
== END 2025-03-10 13:33 | disposition home or self-care (01) | DRG 235 ==
LOC: 2DH 16:33 → 2CV 03-06 08:20 → 2BH 03-07 06:02 → 2AH 03-08 17:31
PROVIDERS: ADMIT Internal Medicine; ATTEND Internal Medicine
PROC: 5A1221Z Performance of Cardiac Output, Continuous (ICD-10-PCS; 2025-03-06)
PROC: 02100Z9 Bypass Coronary Artery, One Artery from Left Internal Mammary, Open Approach (ICD-10-PCS; principal; 2025-03-06 09:17)
PROC: 021109W Bypass Coronary Artery, Two Arteries from Aorta with Autologous Venous Tissue, Open Approach (ICD-10-PCS; 2025-03-06 09:17)
PROC: 06BQ4ZZ Excision of Left Saphenous Vein, Percutaneous Endoscopic Approach (ICD-10-PCS; 2025-03-06 09:17)
PROC: 0PH000Z Insertion of Rigid Plate Internal Fixation Device into Sternum, Open Approach (ICD-10-PCS; 2025-03-06 09:17)
DX: I25.10 Atherosclerotic heart disease of native coronary artery without angina pectoris (principal); I21.4 Non-ST elevation (NSTEMI) myocardial infarction; J95.1 Acute pulmonary insufficiency following thoracic surgery; J96.01 Acute respiratory failure with hypoxia; D72.829 Elevated white blood cell count, unspecified; F17.200 Nicotine dependence, unspecified, uncomplicated; E83.42 Hypomagnesemia; E11.9 Type 2 diabetes mellitus without complications; E78.00 Pure hypercholesterolemia, unspecified; E78.5 Hyperlipidemia, unspecified; Z80.0 Family history of malignant neoplasm of digestive organs; Z79.899 Other long term (current) drug therapy; Z83.3 Family history of diabetes mellitus; Z71.6 Tobacco abuse counseling
CPT/HCPCS: 36415; 71045; 80048; 80053; 80061; 82330; 82435; 82550; 82803; 82947; 82948; 83036; 83605; 83735; 83880; 84100; 84132; 84295; 84443; 84484; 85018; 85025; 85027; 85347; 85384; 85610; 85730; 86701; 86706; 86803; 86850; 86900; 86901; 86923; 87340; 87390; 87641; 93005; 93306; 93312; 93325; 93356; 94002; 94150; A4450; A7048; G0378; J0169; J0282; J0690; J1644; J1650; J1815; J1938; J2003; J2250; J2270; J2405; J2440; J2704; J2720; J3010; J3475; J3480; J3490; J7030; J7040; J7050; J7120; P9045; A4215; A4216; A4221; A4222; A4223; A4649; A6204; C1713; C1776